=== PATIENT | female | born 1975 | race Two or more races ===

== ENCOUNTER 2020-04-12 10:27 | Outpatient (REF) | payer OTHER, SELFPAY ==
[2020-04-12 10:56] LABS: COVID-19 Test Negative (Negative)
== END 2020-04-12 10:28 | disposition home or self-care (01) ==
LOC: HO.LAB 10:27
PROVIDERS: PCP Internal Medicine; Visit Provider Internal Medicine
DX: Z20.828 Contact with and (suspected) exposure to other viral communicable diseases (principal)
CPT/HCPCS: 87635

== ENCOUNTER 2020-05-31 10:07 | Outpatient (REF) | payer OTHER, SELFPAY ==
[2020-05-31 10:26] LABS: COVID-19 Test Negative (Negative)
== END 2020-05-31 10:08 | disposition home or self-care (01) ==
LOC: HO.EMPCOV 10:07
PROVIDERS: PCP Internal Medicine; Visit Provider Internal Medicine
DX: Z20.828 Contact with and (suspected) exposure to other viral communicable diseases (principal)
CPT/HCPCS: 87635; C9803

== ENCOUNTER 2020-06-10 12:28 | Outpatient (REF) | payer OTHER, SELFPAY ==
[2020-06-10 13:56] LABS: COVID-19 Test Negative (Negative); IDNOW Serial# 55D5AD1C
== END 2020-06-10 12:29 | disposition home or self-care (01) ==
LOC: HO.LAB 12:28
PROVIDERS: Visit Provider Internal Medicine
DX: Z20.828 Contact with and (suspected) exposure to other viral communicable diseases (principal)
CPT/HCPCS: 87635; C9803

== ENCOUNTER 2021-01-31 11:48 | Outpatient (REF) | payer OTHER, SELFPAY ==
--- NOTE | ~2021-01-31 | MM_ITS ---
EXAMINATION: MM SCREENING DIGITAL BREAST TOMOSYNTHESIS, BILATERAL CLINICAL INFORMATION: Screening. Asymptomatic. Family history breast cancer, mother. The lifetime risk of breast cancer based on the Tyrer-Cuzick Model is 25%. COMPARISON: None. Radiology department staff has requested prior outside exams to allow for comparison in an addendum report. TECHNIQUE: Digital breast tomosynthesis is performed in both the craniocaudal and mediolateral oblique views along with computer-aided detection (CAD). Synthesized 2D images are generated from the tomosynthesis. FINDINGS: The breasts are heterogeneously dense, which may obscure small masses (ACR BI-RADS breast composition Category c). Breast tissue composition borders on extremely dense. There is no significant mass or architectural abnormality. There are some scattered benign small round and coarse calcifications. The axilla and skin contours are unremarkable. MM/MM tomosynthesis screening BI IMPRESSION: No mammographic evidence of malignancy. ASSESSMENT: BI-RADS 0: Incomplete - Prior outside exams pending for comparison. RECOMMENDATION: 1. Radiology department staff have requested prior outside exams to allow for comparison in an addendum report. 2. The lifetime risk of breast cancer based on the Tyrer-Cuzick Model is 25%. Additional annual adjunct screening with breast MRI may be of benefit in women with a risk score of 20% or greater and with dense breast tissue composition. This patient's information was entered into a reminder system with a target due date for their next mammogram.
== END 2021-01-31 11:49 | disposition home or self-care (01) ==
LOC: HO.MAMMO 11:48
PROVIDERS: PCP Internal Medicine; Visit Provider Internal Medicine
DX: Z12.31 Encounter for screening mammogram for malignant neoplasm of breast (principal)
CPT/HCPCS: 77063; 77067

== ENCOUNTER 2022-02-08 10:59 | Outpatient (REF) | payer OTHER, SELFPAY ==
[2022-02-08 11:14] LABS: MANUAL DIFF FLAG NO
[2022-02-08 11:38] LABS: Basophils Absolute Auto 0.1 X10*3/uL (0.0-0.2); Eosinophils Absolute Auto 0.1 X10*3/uL (0.0-0.4); Eosinophils Percent Auto 1.3 % (0-4); Hemoglobin 10.8 g/dl (12.0-16.0); Imm Gran Abs Auto 0.01 X10*3/uL (0.00-0.03); Imm Gran Pct Auto 0.2 % (0.0-0.4); Lymphocytes Percent Auto 20.5 % (20-40); Mean Corpuscular HGB Conc 32.7 g/dl (31.0-35.0); Mean Corpuscular Hemoglobin 29.4 pg (27.0-33.0); Mean Corpuscular Volume 89.9 fL (80.0-98.0); Mean Platelet Volume 10.3 fL (9.4-12.3); Monocytes Absolute Auto 0.5 X10*3/uL (0.1-1.2); Monocytes Percent Auto 10.5 % (2-11); Neutrophils Absolute Auto 3.2 x10*3/uL (2.0-8.3); Neutrophils Percent Auto 66.5 % (45-73); Platelet Count 306 X10*3/uL (160-400); Red Blood Count 3.67 X10*6/uL (4.20-5.50); Red Cell Distribution Width 13.1 % (11.0-16.0); White Blood Count 4.8 X10*3/uL (4.8-10.8)
[2022-02-08 12:29] LABS: C Reactive Protein 0.05 mg/dL (< or = 0.50); Estimated Glomerular Filt Rate > 60; Iron 90 mcg/dL (30-160); Percent Iron Saturation 23 % (15-50); Total Iron Binding Capacity 391 mcg/dL (228-428); Unsaturated Iron Binding 301 ug/dL
[2022-02-08 12:49] LABS: Creatinine Urine 52.47 mg/dL; Total Protein Urine Random < 7 mg/dL (<12)
[2022-02-08 13:33] LABS: Vitamin B12 354 pg/mL (200-900)
[2022-02-14 22:56] LABS: Prot Elec - Albumin 4.1 g/dL (3.8-4.8); Prot Elec - Alpha1 0.3 g/dL (0.2-0.3); Prot Elec - Alpha2 0.8 g/dL (0.5-0.9); Prot Elec - Beta 1 0.6 g/dL (0.4-0.6); Prot Elec - Beta 2 0.5 g/dL (0.2-0.5); Prot Elec - Gamma 3.5 g/dL (0.8-1.7); Prot Elec - Total Protein 9.9 g/dL (6.1-8.1)
== END 2022-02-08 11:00 | disposition home or self-care (01) ==
LOC: HO.LAB 10:59
PROVIDERS: PCP Internal Medicine; Visit Provider Internal Medicine Rheumatology
DX: M35.1 Other overlap syndromes (principal); D64.9 Anemia, unspecified
CPT/HCPCS: 36415; 82565; 82607; 83540; 84156; 84165; 85025; 86140

== ENCOUNTER 2022-03-08 11:16 | Outpatient (REF) | payer OTHER, SELFPAY ==
--- NOTE | ~2022-03-08 | MM_ITS ---
EXAMINATION: MM SCREENING DIGITAL BREAST TOMOSYNTHESIS, BILATERAL CLINICAL INFORMATION: Screening. Asymptomatic. Family history breast cancer, mother age 59. The lifetime risk of breast cancer based on the Tyrer-Cuzick Model is 25%. COMPARISON: Mammography: 01/31/2021, outside mammography 05/12/2017 ([facility] [place], [place]). TECHNIQUE: Digital breast tomosynthesis is performed in both the craniocaudal and mediolateral oblique views along with computer-aided detection (CAD). Synthesized 2D images are generated from the tomosynthesis. FINDINGS: The breasts are heterogeneously dense, which may obscure small masses (ACR BI-RADS breast composition Category c). Parenchymal pattern is similar to prior studies and there is no developing density or architectural abnormality. There are no significant masses, abnormal calcifications, or other abnormalities. The axilla and skin contours are unremarkable. No significant changes. MM/MM tomosynthesis screening BI IMPRESSION: No mammographic evidence of malignancy. ASSESSMENT: BI-RADS 1: Negative RECOMMENDATION: Routine annual mammography screening. This patient's information was entered into a reminder system with a target due date for their next mammogram.
== END 2022-03-08 11:17 | disposition home or self-care (01) ==
LOC: HO.MAMMO 11:16
PROVIDERS: PCP Internal Medicine; Visit Provider Internal Medicine
DX: Z12.31 Encounter for screening mammogram for malignant neoplasm of breast (principal)
CPT/HCPCS: 77063; 77067

== ENCOUNTER → 2022-08-16 07:53 | Outpatient (BNVA) | payer OTHER, SELFPAY | PROVIDERS: PCP Internal Medicine; Visit Provider Internal Medicine Rheumatology | DX: Z13.89 Encounter for screening for other disorder (principal) ==

== ENCOUNTER 2022-08-16 08:37 | Outpatient (REF) | payer OTHER, SELFPAY ==
[2022-08-16 11:17] LABS: Basophils Percent Auto 0.6 % (0-2); Eosinophils Percent Auto 0.6 % (0-4); Hematocrit 29.1 % (37.0-47.0); Hemoglobin 9.2 g/dl (12.0-16.0); Lymphocytes Absolute Auto 0.5 X10*3/uL (1.2-4.9); Lymphocytes Percent Auto 28.8 % (20-40); MANUAL DIFF FLAG SCAN; Mean Corpuscular HGB Conc 31.6 g/dl (31.0-35.0); Mean Corpuscular Hemoglobin 27.9 pg (27.0-33.0); Mean Corpuscular Volume 88.2 fL (80.0-98.0); Mean Platelet Volume 11.9 fL (9.4-12.3); Monocytes Absolute Auto 0.2 X10*3/uL (0.1-1.2); Monocytes Percent Auto 11.9 % (2-11); Neutrophils Percent Auto 58.1 % (45-73); Platelet Count 189 X10*3/uL (160-400); Red Cell Distribution Width 13.3 % (11.0-16.0); SCAN SMEAR FLAG 1
[2022-08-16 11:37] LABS: Alanine Aminotransferase 9 U/L (0-31); Albumin Level 3.8 g/dL (3.5-5.0); Alkaline Phosphatase 50 U/L (39-117); Anion Gap 13 (12-20); Aspartate Amino Transferase 19 U/L (5-31); Bilirubin Total 0.3 mg/dL (0.0-1.0); Blood Urea Nitrogen 14 mg/dL (9-16); C Reactive Protein < 0.10 mg/dL (< or = 0.50); Calcium 9.1 mg/dL (8.4-10.2); Carbon Dioxide 23 mmol/L (22-29); Chloride 106 mmol/L (96-108); Estimated Glomerular Filt Rate > 60; Glucose Random 81 mg/dL (60-115); Potassium 3.8 mmol/L (3.3-5.1); Sodium 138 mmol/L (135-145); Total Protein 9.3 g/dL (6.5-8.0)
[2022-08-16 11:38] LABS: White Blood Count 1.8 X10*3/uL (4.8-10.8)
[2022-08-16 11:47] LABS: SLIDE REVIEW VERIFIED
[2022-08-16 12:18] LABS: Creatinine Urine 31.19 mg/dL; Total Protein Urine Random < 7 mg/dL (<12)
[2022-08-16 12:28] LABS: Erythrocyte Sedimentation Rate 100 MM/HR (0-20)
[2022-08-18 14:47] LABS: Complement C3 85 mg/dL (83-193)
[2022-08-18 19:52] LABS: Anti DNA DS Antibody 3 IU/mL
== END 2022-08-16 08:38 | disposition home or self-care (01) ==
LOC: HO.10HDL 08:37
PROVIDERS: Visit Provider Internal Medicine Rheumatology
DX: M35.1 Other overlap syndromes (principal)
CPT/HCPCS: 36415; 80053; 84156; 85025; 85652; 86140; 86160; 86225

== ENCOUNTER 2022-09-07 07:17 | Outpatient (REF) | payer OTHER, SELFPAY ==
[2022-09-07 07:28] LABS: MANUAL DIFF FLAG NO
[2022-09-07 08:16] LABS: Hematocrit 33.5 % (37.0-47.0); Hemoglobin 10.4 g/dl (12.0-16.0); Imm Gran Abs Auto 0.01 X10*3/uL (0.00-0.03); Imm Gran Pct Auto 0.3 % (0.0-0.4); Lymphocytes Absolute Auto 0.9 X10*3/uL (1.2-4.9); Lymphocytes Percent Auto 30.3 % (20-40); Mean Corpuscular Hemoglobin 27.5 pg (27.0-33.0); Mean Corpuscular Volume 88.6 fL (80.0-98.0); Mean Platelet Volume 10.5 fL (9.4-12.3); Monocytes Absolute Auto 0.4 X10*3/uL (0.1-1.2); Monocytes Percent Auto 13.8 % (2-11); Neutrophils Absolute Auto 1.6 x10*3/uL (2.0-8.3); Neutrophils Percent Auto 53.6 % (45-73); Platelet Count 250 X10*3/uL (160-400); Red Blood Count 3.78 X10*6/uL (4.20-5.50)
[2022-09-08 14:54] LABS: Haptoglobin 105 mg/dL (43-212)
== END 2022-09-07 07:18 | disposition home or self-care (01) ==
LOC: HO.LAB 07:17
PROVIDERS: PCP Internal Medicine; Visit Provider Internal Medicine Rheumatology
DX: D64.9 Anemia, unspecified (principal)
CPT/HCPCS: 36415; 83010; 85025; 86880

== ENCOUNTER 2022-11-09 10:33 | Outpatient (REF) | payer OTHER, SELFPAY ==
[2022-11-09 10:43] LABS: MANUAL DIFF FLAG NO
[2022-11-09 11:34] LABS: Basophils Percent Auto 0.9 % (0-2); Eosinophils Percent Auto 0.6 % (0-4); Hematocrit 32.1 % (37.0-47.0); Hemoglobin 9.9 g/dl (12.0-16.0); Imm Gran Abs Auto 0.01 X10*3/uL (0.00-0.03); Imm Gran Pct Auto 0.3 % (0.0-0.4); Lymphocytes Percent Auto 28.3 % (20-40); Mean Corpuscular HGB Conc 30.8 g/dl (31.0-35.0); Mean Corpuscular Hemoglobin 26.7 pg (27.0-33.0); Mean Corpuscular Volume 86.5 fL (80.0-98.0); Mean Platelet Volume 11.2 fL (9.4-12.3); Monocytes Absolute Auto 0.5 X10*3/uL (0.1-1.2); Monocytes Percent Auto 13.7 % (2-11); Neutrophils Absolute Auto 1.9 x10*3/uL (2.0-8.3); Neutrophils Percent Auto 56.2 % (45-73); Platelet Count 253 X10*3/uL (160-400); Red Blood Count 3.71 X10*6/uL (4.20-5.50); Red Cell Distribution Width 13.8 % (11.0-16.0); White Blood Count 3.4 X10*3/uL (4.8-10.8)
[2022-11-09 12:12] LABS: C Reactive Protein < 0.10 mg/dL (< or = 0.50)
[2022-11-09 12:24] LABS: Erythrocyte Sedimentation Rate 90 MM/HR (0-20)
[2022-11-09 13:09] LABS: Total Protein Urine Random < 7 mg/dL (<12)
== END 2022-11-09 10:34 | disposition home or self-care (01) ==
LOC: HO.LAB 10:33
PROVIDERS: PCP Internal Medicine; Visit Provider Internal Medicine Rheumatology
DX: M35.1 Other overlap syndromes (principal)
CPT/HCPCS: 36415; 84156; 85025; 85652; 86140

== ENCOUNTER 2023-01-31 07:20 | Outpatient (REF) | payer OTHER, SELFPAY ==
[2023-01-31 08:57] LABS: Alanine Aminotransferase 6 U/L (0-31); Albumin Level 3.9 g/dL (3.5-5.0); Alkaline Phosphatase 50 U/L (39-117); Anion Gap 8 (12-20); Aspartate Amino Transferase 16 U/L (5-31); Bilirubin Total 0.2 mg/dL (0.0-1.0); Blood Urea Nitrogen 13 mg/dL (9-16); C Reactive Protein < 0.10 mg/dL (< or = 0.50); Calcium 9.5 mg/dL (8.4-10.2); Carbon Dioxide 27 mmol/L (22-29); Chloride 106 mmol/L (96-108); Estimated Glomerular Filt Rate > 60; Glucose Random 64 mg/dL (60-115); Potassium 3.6 mmol/L (3.3-5.1); Sodium 137 mmol/L (135-145); Total Protein 9.7 g/dL (6.5-8.0)
[2023-01-31 09:03] LABS: Erythrocyte Sedimentation Rate 89 MM/HR (0-20)
[2023-01-31 09:43] LABS: Creatinine Urine 40.02 mg/dL; Total Protein Urine Random < 7 mg/dL (<12)
[2023-02-01 15:38] LABS: Complement C3 95 mg/dL (83-193)
[2023-02-02 12:54] LABS: Anti DNA DS Antibody 3 IU/mL
== END 2023-01-31 07:21 | disposition home or self-care (01) ==
LOC: HO.LAB 07:20
PROVIDERS: PCP Internal Medicine; Visit Provider Internal Medicine Rheumatology
DX: D64.9 Anemia, unspecified (principal); D72.819 Decreased white blood cell count, unspecified; M35.1 Other overlap syndromes
CPT/HCPCS: 36415; 80053; 84156; 85652; 86140; 86160; 86225

== ENCOUNTER → 2023-02-14 10:52 | Outpatient (BNV) | payer OTHER, SELFPAY | PROVIDERS: PCP Internal Medicine; Visit Provider Internal Medicine Medical Oncology | DX: D64.9 Anemia, unspecified (principal); D72.819 Decreased white blood cell count, unspecified | CPT/HCPCS: 99204; 99213 ==

== ENCOUNTER 2023-02-15 07:47 | Outpatient (AMB) | payer OTHER, SELFPAY ==
--- NOTE | 2023-02-15 07:58 | A.OFFVIS_ITS ---
Intake Vital Signs 02/15/23 07:59 Height 5 ft 1 in Weight 112 lb 10.499 oz BMI 21.3 BP 102/64 Blood Pressure Location Lt brachial Position Sitting Pulse 87 Pulse Source Pulse Oximeter Temp 98 F Temp Source Skin Pulse Oximetry (%) 100 Oxygen Delivery Method Room Air Intake Visit Reasons: sjog Allergies Penicillins Allergy (Intermediate, Verified 02/15/23 07:58) Swelling Medication List - Last Reconciled 02/15/23 by Ranjit Gaming MD cyclosporine 0.09% (Cequa) 1 drp ophthalmic (eye) BID doxycycline hyclate 100 mg PO DAILY ferrous sulfate 325 mg PO DAILY hydroxychloroquine 200 mg PO DAILY omega-3 fatty acids 1,000 mg PO DAILY varenicline (Tyrvaya) 0.03 sprays intranasal DAILY HPI HPI Comments History of Present Illness Details The patient returns for evaluation of her sicca symptoms thought to be due to mixed connective tissue disease. She continues to struggle with dry eyes. She relates also at times they are somewhat itchy consistent with an allergic conjunctivitis. She was seen at [facility]. She was also told she had some element of ocular rosacea. She does take some doxycycline for the rosacea. The Restasis was upgraded to Cequa which is a higher concentration of cyclosporin but she does not think it has helped so far. The pilocarpine did not improve any of her ocular symptoms so she stopped it. She does not have any dry mouth. She also has been using the nasal spray Tyrvaya. The this is a preparation with varenicline. She also had punctal plugs in but they did fall out as she scratches the area. At [facility] she was offered a trial of a new drug but that would require her to stop all her other treatments and would also require monthly evaluations in [place]. She does not have any arthralgias or skin rashes. Last year she had some eczema that resolved with some prednisone. There continues to be significant leukopenia and anemia. She did see Hematology yesterday. Workup showed a low iron saturation although the serum iron level was 36. The B12 level was normal but in the lower range. 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 See above. Negative for vision change, headaches and dizziness ENT Details: Negative for hearing change, tinnitus, oral ulcer, nose bleeds and oral dryness. Card Details: Negative chest pain, edema and syncope Resp Details: Negative for SOB, cough and wheezing GI Details: Negative indigestion/heartburn, nausea, abdominal pain, bowel changes, diarrhea, constipation and bloody stool. Skin/Breast Details: Occasional Raynaud's symptoms but no cutaneous ulcerations. Negative for itching, rash, hives, some sun sensitivity, and skin cancer Neuro Details: Occasional nocturnal hand paresthesias. These seem to subsided she uses wrist splints. Negative for epilepsy, palsy, stroke, changes in speech and weakness [place]/Lymph Details: Negative for excessive bruising or bleeding. Physical Exam Vital Signs: Last Vital Signs Temp 98 F 02/15/23 07:59 Pulse 87 02/15/23 07:59 BP 102/64 02/15/23 07:59 Pulse Ox 100 02/15/23 07:59 Oxygen Delivery Method Room Air 02/15/23 07:59 BMI result Body Mass Index 21.3 APPEARANCE: Patient in no acute distress EYES no redness, pupils equal and reactive to light, eyelids are seem somewhat puffy but no redness or scaling is noted. NOSE/SINUS: Airflow through both nares, no nasal discharge, no bleeding THROAT: Oral mucosa moist, no ulcerations NECK: No thyromegaly or masses, no adenopathy, trachea midline. HEART: Regulrar rhythm, S1-S2 heard, no murmurs, rubs or gallops. LUNG: Clear to percussion and auscultation ABD: Normal bowel sounds, no organomegaly, masses or tenderness. EXTREMITIES: No edema, no calf tenderness, normal peripheral pulses. SKIN: No inflammatory or neoplastic lesions. Normal color and turgor JOINT EXAM: Pain-free range of motion of the joints. No tenderness or swelling.?? ? Assessment & Plan Assessment & Plan (1) Long-term use of hydroxychloroquine: Comment: eye exam reported as OK 07/2022 Code(s): Z79.899 - Other fpc (current) drug therapy (2) Leukopenia: Code(s): D72.819 - Decreased white blood cell count, unspecified (3) MCTD (mixed connective tissue disease): Comment: Diagnosed 2020: 3 years of dry eyes, Raynaud's symptoms, leukopenia, anemia, dry mouth. Positive Sjogren's antibodies and anti BEE RANCHER. Hydroxychloroquine started in the fall of 2020. Hydroxychloroquine stopped in the fall; restarted spring 2022 due to leukopenia Code(s): M35.1 - Other overlap syndromes (4) Sicca syndrome with keratoconjunctivitis: Code(s): M35.01 - Sjogren syndrome with keratoconjunctivitis Plan Sjogren's syndrome with the dry eye symptom complicated by some localized rosacea and possibly allergic conjunctivitis. She is now being seen by 2 different ophthalmologists. Measures to combat the dryness have not been all that successful. She does not seem to have any other systemic symptoms of a rheumatic disease. However she does have this persistent leukopenia, mostly lymphopenia and her anemia is slightly worse with some low MCH suggesting iron deficiency. The iron level was a bit low so she is told to be back on iron tablets. She should remain on the hydroxychloroquine since that did have a positive benefit on her leukopenia in the past. Hydroxychloroquine of course is not known to help the sicca symptoms of Sjogren's syndrome. Additional immunosuppressive treatment also has not been helpful in the past for other patients. Adding immunosuppressive treatment with her baseline leukopenia could also give her more problems than a potential benefit. She is apparently seeing Hematology in May and I thought she should see Rheumatology again in around July. Coding Level of Care Code Est Pt Level 4 (52422) Diagnoses Long-term use of hydroxychloroquine Z79.899 Leukopenia D72.819 MCTD (mixed connective tissue disease) M35.1 Sicca syndrome with keratoconjunctivitis M35.01
--- NOTE | 2023-02-15 07:58 | MHC.OFFVIS ---
Intake Vital Signs 02/15/23 07:59 Height 5 ft 1 in Weight 112 lb 10.499 oz BMI 21.3 BP 102/64 Blood Pressure Location Lt brachial Position Sitting Pulse 87 Pulse Source Pulse Oximeter Temp 98 F Temp Source Skin Pulse Oximetry (%) 100 Oxygen Delivery Method Room Air Intake Visit Reasons: sjog Intake Note: Here for sjogren's follow up Adaptive Physical Educator Required: No Accompanied by: Self / Same As Patient Allergies Penicillins Allergy (Intermediate, Verified 02/15/23 07:58) Swelling PFSH Medical History (Updated 02/15/23 @ 07:53 by Ranjit Gaming MD) Sjogren's disease Family History Mother Ovarian cancer Breast cancer Lung cancer BRCA gene mutation positive Social History Household Members: Significant Other Housing: House Alcohol intake: current Alcohol intake frequency: a few times a month Alcohol type: beer, wine and hard liquor Patient Tobacco Use Status: Never used Tobacco e-Cigarette/Vaping Use: Never Used service: No 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
[2023-02-15 07:59] VITALS: BP 102/64; PULSE 87; TEMP 36.6; O2SAT 100; BMI 21.3
== END 2023-02-15 08:21 | disposition home or self-care (01) ==
PROVIDERS: PCP Internal Medicine; Visit Provider Internal Medicine Rheumatology
DX: Z79.899 Other long term (current) drug therapy (principal); D72.819 Decreased white blood cell count, unspecified; M35.1 Other overlap syndromes; M35.01 Sjogren syndrome with keratoconjunctivitis
CPT/HCPCS: 99214

== ENCOUNTER → 2023-02-15 07:47 | Outpatient (BNVA) | payer OTHER, SELFPAY | PROVIDERS: PCP Internal Medicine; Visit Provider Internal Medicine Rheumatology ==

== ENCOUNTER 2023-03-12 08:02 | Outpatient (AMB) | payer OTHER, SELFPAY ==
[2023-03-12 08:10] VITALS: BP 107/59; PULSE 82; BMI 20.8
--- NOTE | 2023-03-12 08:10 | MHC.OFFVIS ---
Intake Vital Signs 03/12/23 08:10 Height 5 ft 1 in Weight 110 lb BMI 20.8 BP 107/59 L Blood Pressure Location Lt brachial Position Sitting Pulse 82 Intake Visit Reasons: Colonoscopy Screening Intake Note: Patient new consult for 1st pre colonoscopy screening. Patient denies any GI issues. Manager Audio Required: No Accompanied by: Self / Same As Patient Allergies Penicillins Allergy (Intermediate, Verified 03/12/23 08:08) Swelling Medication List - Last Reconciled 03/12/23 by Mary Jo Pickens PA-C cyclosporine 0.09% (Cequa) 1 drp ophthalmic (eye) BID doxycycline hyclate 100 mg PO DAILY hydroxychloroquine 200 mg PO DAILY omega-3 fatty acids 1,000 mg PO DAILY varenicline (Tyrvaya) 0.03 sprays intranasal DAILY HPI HPI Comments History of Present Illness Details A 47 female index screening colonoscopy -She has a normal bowel pattern A good appetite- rare heartburn Follows with Dr. Maldonado and Dr. 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 of Systems Const All systems reviewed & are unremarkable except as noted in HPI and below Card Denies chest pain and Denies dyspnea Resp Denies dyspnea GI Denies abdominal pain and Reports heartburn (rare-) Physical Exam Vital Signs: Last Vital Signs Pulse 82 03/12/23 08:10 BP 107/59 L 03/12/23 08:10 BMI result Body Mass Index 20.8 Const General: cooperative, healthy appearing, comfortable and no acute distress Nutritional Appearance: thin Orientation/consciousness: patient oriented x3 Limitations: no limitations Resp Effort & Inspection: normal respiratory effort and able to speak in complete sentences Auscultation: clear to auscultation bilaterally, no rales, no rhonchi and no wheezes Cardio Rate: regular rate Rhythm: regular rhythm Heart sounds: S1 normal heart sound present and S2 normal heart sound present GI Palpation (GI): Soft to palpation and nontender Auscultation: normal bowel sounds Skin General skin exam: no rashes or lesions noted Neuro General: patient oriented x3 Extrem General: Yes full ROM Psych Appearance: grossly normal and well kempt Mental Status: mental status grossly normal Speech and movement: Normal speech and movement present and Clear speech present Affect: normal affect Attitude: cooperative Thought process: Normal thought process present Thought content: Normal thought content present Insight: Good insight present (Psych) Judgement: Good judgement present (Psych) Results Reviewed Results Reviewed: labs- iron def anemia- elevated TTG- Assessment & Plan Assessment & Plan (1) Positive autoantibody screening for celiac disease: Comment: A very pleasant-47 y/o female connective tissue disease, elevated tTG iron deficiency anemia, leukopenia referred for index screening colonoscopy. No bowel issues Rare heartburn- EGD r/o underlying causes of symptoms to include-biopsy for celiac disease, also check H pylori etc Code(s): R76.8 - Other specified abnormal immunological findings in serum Plan: EGD and index screening colonoscopy (2) Encounter for screening colonoscopy: Comment: No GI complaints- Discussed procedure, rare risks, need for escorted and prep Code(s): Z12.11 - Encounter for screening for malignant neoplasm of colon Plan: Index screening colonoscopy MiraLax Gatorade split Plan EGD and colonoscopy MiraLax Gatorade split prep Orders: Orders EGD/Seward Combo - GI Use Only Today R76.8 - Other specified abnormal immunological findings in serum, Z12.11 - Encounter for screening for malignant neoplasm of colon Medications: New bisacodyl (Dulcolax (bisacodyl)) Take 4 tablets by mouth at 12:00pm the day before your procedure. 20 mg (4 x 5 mg) PO ONCE 1 day 4 tabs 0RF colonoscopy prep Z12.11 - Encounter for screening for malignant neoplasm of colon polyethylene glycol 3350 (Miralax) Take as directed by mouth the day before your procedure. 238 grams PO ONCE 1 day PRN 238 grams 0RF laxative effect Patient Instructions: EGD and colonoscopy MiraLax Gatorade split prep literature given Opportunity for questions answered to her satisfaction Need for escort Encouraged to call questions or concerns Coding Level of Care Code New Pt Level 3 (31484) Diagnoses Positive autoantibody screening for celiac disease R76.8 Encounter for screening colonoscopy Z12.11 Time Spent (min) 25
== END 2023-03-12 10:00 | disposition home or self-care (01) ==
PROVIDERS: PCP Internal Medicine; Visit Provider Physician Assistant
DX: R76.8 Other specified abnormal immunological findings in serum (principal); Z12.11 Encounter for screening for malignant neoplasm of colon
CPT/HCPCS: 99203

== ENCOUNTER → 2023-03-12 08:02 | Outpatient (BNVA) | payer OTHER, SELFPAY | PROVIDERS: PCP Internal Medicine; Visit Provider Physician Assistant ==

== ENCOUNTER 2023-04-16 11:48 | Outpatient (REF) | payer OTHER, SELFPAY | END 2023-04-16 11:49 | disposition home or self-care (01) | LOC: HO.MAMMO 11:48 | PROVIDERS: PCP Internal Medicine; Visit Provider Internal Medicine | DX: Z12.31 Encounter for screening mammogram for malignant neoplasm of breast (principal) | CPT/HCPCS: 77063; 77067 ==

== ENCOUNTER → 2023-04-16 12:00 | Outpatient (BNV) | payer OTHER, SELFPAY | PROVIDERS: PCP Internal Medicine; Visit Provider Radiology Diagnostic Radiology | DX: Z12.31 Encounter for screening mammogram for malignant neoplasm of breast (principal) | CPT/HCPCS: 77063; 77067 ==

== ENCOUNTER 2023-06-14 06:02 | Day surgery (SDC) | payer OTHER, SELFPAY ==
[2023-06-12 09:33] VITALS: BMI 20.8
--- NOTE | 2023-06-13 09:51 | HO.ANESPROP2 ---
Documented by User: Vidhya Thomson NP 06/13/23 09:53 HPI - Anesthesia Eval Consult details Narrative: 48yo F for Upper Endoscopy and Colonoscopy Follows [facility] for leukopenia/anemia. Started on supplement 05/2023 [facility] Active Problems Active Problems: All Active Problems (Updated 06/12/23 @ 09:29 by Aida Carcamo RN) Ocular cicatricial pemphigoid (Acute) Encounter for screening colonoscopy (Acute) Positive autoantibody screening for celiac disease (Acute) Sicca syndrome with keratoconjunctivitis (Acute) Leukopenia (Acute) Paresthesia of hand, bilateral (Acute) Hand eczema (Acute) Long-term use of hydroxychloroquine (Acute) Raynauds phenomenon (Acute) Anemia (Acute) MCTD (mixed connective tissue disease) (Acute) Past Medical History Medical History Iron deficiency anemia Leukopenia MCTD (mixed connective tissue disease) Raynaud phenomenon Sjogren's disease Family History Family History Mother Ovarian cancer Breast cancer Lung cancer BRCA gene mutation positive Surgical History Surgical History Hx of eye surgery Social History Social History Household Members: Significant Other Housing: House Alcohol intake: current Alcohol intake frequency: does not drink Alcohol type: beer, wine and hard liquor Patient Tobacco Use Status: Never used Tobacco e-Cigarette/Vaping Use: Never Used Are you DNR?: No Advance Directives: No Advance Directives Information Provided: Yes Recently lost weight without trying: No Nutrition Risks: No Nutritional Risk Patient : No FDLMP: 1 week service: No 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 Allergy/AdvReac Type Severity Reaction Status Date / Time Penicillins Allergy Intermediate Swelling Verified 05/15/23 09:20 Home Medications Medication Instructions Recorded Confirmed Last Taken Type omega-3 fatty acids 1,000 mg 1,000 mg PO DAILY 02/08/22 06/12/23 06/08/23 History capsule doxycycline hyclate 100 mg capsule 100 mg PO DAILY 02/09/23 06/12/23 Unknown History varenicline 0.03 mg/spray nasal 0.03 spray intranasal DAILY 02/09/23 06/12/23 Unknown History spray (Tyrvaya) cetirizine 10 mg tablet (Zyrtec) 10 mg PO DAILY PRN Allergy Symptoms 05/15/23 06/12/23 Unknown History cyclosporine 0.05 % eye drops 1 drp ophthalmic (eye) DAILY 05/15/23 06/12/23 Unknown History (Restasis MultiDose) cyclosporine modified 50 mg capsule 50 mg PO DAILY 05/15/23 06/12/23 Unknown History folic acid 1 mg tablet 1 mg PO DAILY 05/15/23 06/12/23 Unknown History methotrexate 2.5 mg/mL oral 2.5 mg PO QWEEK 05/15/23 06/12/23 Unknown History solution valacyclovir 1 gram tablet 1,000 mg PO DAILY 05/15/23 06/12/23 Unknown History (Valtrex) Exam Height,Weight and Vital Signs: Height 5 ft 1 in Weight 49.895 kg Pertinent Lab Results Pertinent Lab Results: Laboratory Tests 05/15/23 09:17 WBC 2.4 L Hgb 8.9 L Hct 29.3 L Plt Count 270 Sodium 136 Potassium 4.3 Chloride 104 Carbon Dioxide 24 BUN 11 Creatinine 0.81 Assessment and Plan Assessment Anesthesia Assessment: Chart Reviewed Documented by User: Harriett Roland MD 06/14/23 08:17 [facility] Active Problems Active Problems: All Active Problems (Updated 06/14/23 @ 07:20 by Harriett Roland MD) Ocular cicatricial pemphigoid (Acute) Encounter for screening colonoscopy (Acute) Positive autoantibody screening for celiac disease (Acute) Sicca syndrome with keratoconjunctivitis (Acute) Leukopenia (Acute) Paresthesia of hand, bilateral (Acute) Hand eczema (Acute) Long-term use of hydroxychloroquine (Acute) Raynauds phenomenon (Acute) Anemia (Acute) MCTD (mixed connective tissue disease) (Acute) Past Medical History Medical History Iron deficiency anemia Leukopenia MCTD (mixed connective tissue disease) Raynaud phenomenon Sjogren's disease Family History Family History Mother Ovarian cancer Breast cancer Lung cancer BRCA gene mutation positive Family history of problems with anesthesia: No Surgical History Surgical History Hx of eye surgery History of Problems with Anesthesia: No Social History Social History Household Members: Significant Other Housing: House Alcohol intake: current Alcohol intake frequency: does not drink Alcohol type: beer, wine and hard liquor Patient Tobacco Use Status: Never used Tobacco e-Cigarette/Vaping Use: Never Used Are you DNR?: No Advance Directives: No Advance Directives Information Provided: Yes Recently lost weight without trying: No Nutrition Risks: No Nutritional Risk Patient : No FDLMP: 1 week service: No 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 Allergy/AdvReac Type Severity Reaction Status Date / Time Penicillins Allergy Intermediate Swelling Verified 05/15/23 09:20 Home Medications Medication Instructions Recorded Confirmed Last Taken Type omega-3 fatty acids 1,000 mg 1,000 mg PO DAILY 02/08/22 06/12/23 06/08/23 History capsule doxycycline hyclate 100 mg capsule 100 mg PO DAILY 02/09/23 06/12/23 Unknown History varenicline 0.03 mg/spray nasal 0.03 spray intranasal DAILY 02/09/23 06/12/23 Unknown History spray (Tyrvaya) cetirizine 10 mg tablet (Zyrtec) 10 mg PO DAILY PRN Allergy Symptoms 05/15/23 06/12/23 Unknown History cyclosporine 0.05 % eye drops 1 drp ophthalmic (eye) DAILY 05/15/23 06/12/23 Unknown History (Restasis MultiDose) cyclosporine modified 50 mg capsule 50 mg PO DAILY 05/15/23 06/12/23 Unknown History folic acid 1 mg tablet 1 mg PO DAILY 05/15/23 06/12/23 Unknown History methotrexate 2.5 mg/mL oral 2.5 mg PO QWEEK 05/15/23 06/12/23 Unknown History solution valacyclovir 1 gram tablet 1,000 mg PO DAILY 05/15/23 06/12/23 Unknown History (Valtrex) Exam Height,Weight and Vital Signs: Height 5 ft 1 in Weight 49.895 kg Vital Signs Temp Pulse Resp BP Pulse Ox O2 Del Method 06/14/23 06:29 97 F 77 20 116/70 100 Room Air Pertinent Lab Results Pertinent Lab Results: Laboratory Tests 05/15/23 09:17 WBC 2.4 L Hgb 8.9 L Hct 29.3 L Plt Count 270 Sodium 136 Potassium 4.3 Chloride 104 Carbon Dioxide 24 BUN 11 Creatinine 0.81 Lab Results 06/14/23 Range/Units 07:10 Urine Test NEGATIVE (NEGATIVE) Airway Mallampati Class: III (Small mouth) TM Dist: >3cm Neck ROM: Full Loose/Missing/Broken Teeth: No (Denies broken, loose, missing teeth) Heart: RRR Lungs: CTAB Assessment and Plan Assessment Anesthesia Assessment: Anesthesia Plan Discussed Final Anesthetic Review Family History of Problems with Anesthesia: No History of Problems with Anesthesia: No NPO: Yes ASA Class: II Final Preanesthetic Review: No Changes in Pt Med Stat, Meds/Allgs Chart Reviewed, Consent Obtained/Reviewed and Anes Risks/Benef Reviewed Patient Risk: Low Procedure Risk: Low Assessment/Block/Sedation in SS: Assess/Block/Sedation-SS Anesthetic Plan Anesthetic Plan: TIVA Disposition: Standard PACU
[2023-06-14 06:18] VITALS: BMI 21.1
[2023-06-14 06:29] VITALS: BP 116/70; PULSE 77; RESP 20; TEMP 36.1; O2SAT 100
--- NOTE | 2023-06-14 06:29 | MHC.SHP ---
Pre-Procedural Eval Section A Date of Service: 06/14/23 Section B Chief Complaint: Other specified abnormal immunological findings in Details of Present Illness: screening and pos celiac test Relevant Family History (Specify if Yes): No Relevant Social History: None Present Medications: see Short Stay Collaborative assessment Medical History: Significant History (eva deficiency anemia Leukopenia MCTD (mixed connective tissue disease) Raynaud phenomenon Sjogren's disease) History of Previous Operations: Relevant previous surgery/procedure and date(s) (eye surg) Allergies: Allergies Allergy/AdvReac Type Severity Reaction Status Date / Time Penicillins Allergy Intermediate Swelling Verified 05/15/23 09:20 Review of Systems Sugical H&P ROS: Negative: Constitution, Cardiovascular, Respiratory, Neurological, Psychiatric, Hem-Onc, Allergic/Immunologic, Gastrointestinal, Genitourinary, Musculoskeletal, Integumentary, Endocrine and Eyes/Ears/Nose/Throat Exam Surgical H&P Exam: Normal: HEENT, Normal: Heart, Normal: Lungs, Normal: Extremities, Normal: Abdomen, Normal: Skin and Normal: Neurological Plan Diagnosis/Plan: Unchanged I have reviewed the history and physical and performed a pertinent physical examination on my patient. No changes have occurred unless specified. Time Spent With Patient Time: Total time managing care of this patient today ____ minutes.
--- NOTE | 2023-06-14 07:38 | W.PM.OPN ---
Operative Note Operative Note Date of Service: 06/14/23 Narrative: Operative Information Procedure Description: EGD, Colonoscopy Indication: pos celiac antibody test, screening colonoscopy Anesthesia: MAC FLEXIBLE TRANSORAL UPPER GASTROINTESTINAL ENDOSCOPY AND COLONOSCOPY PROCEDURE NOTE UPPER ENDOSCOPY Consent: Indications for the procedure and potential complications of bleeding, perforation, reaction to medications and missed diagnosis were discussed with the patient and informed consent was obtained. Instrument: Olympus GIF H 190 J mid size upper endoscope Monitoring: Vital signs and clinical assessment, continuous EKG monitoring, Pulse oximetry, Carbon Dioxide monitoring and blood pressure monitoring were done throughout the procedure. Procedure: The patient was placed in the left lateral decubitis position and pre-procedure medications were administered and a bite block was placed. The endoscope was inserted into the mouth and advanced under direct vision to the third part of duodenum. A careful inspection was made as the upper endoscope was withdrawn including a retroflexed examination of the proximal stomach; Findings and interventions are described below. Findings: Larynx:normal Esophagus: GE junction at 38 cm, diaphragm hiatus at 38 cm, irregular z line, bx taken to r/o Barretts, lax LEs noted Stomach: PAtchy erythema. Biopsies were obtained. Grade 2 flap valve on retroflexed examination of the cardia. Duodenum: flat mucosa with coarse features aleida in bulb, bx taken Intervention: Biopsies as noted above COLONOSCOPY Instrument: Olympus variable stiffness pediatric scope 190L Colonoscopy Monitoring: Vital signs and clinical assessment, continuous EKG monitoring, Pulse oximetry, Carbon Dioxide monitoring and blood pressure monitoring were done throughout the procedure. Colon withdrawal time was 8 minutes. Procedure: The patient was placed in the left lateral decubitis position and pre-procedure medications were administered. After a digital rectal examination of the ano-rectum, the video colonoscope was inserted into the rectum and advanced through the colon to the cecum/TI. The colonoscope was slowly withdrawn in a retrograde panoramic fashion and the colon mucosa was carefully examined including a retroflexed view of the rectum. Findings and interventions are described below. Procedure Difficulty:moderate Findings: Terminal Ileum-not intubated due to looping Cecum:normal Ascending Colon: normal Transverse Colon -normal Descending Colon:normal Sigmoid Colon: normal Rectum: Retroflexion with small internal hemorrhoids, grade I Anorectum - normal Colon preparation: [place] Bowel Preparation Scale Right colon; 2 Transverse colon: 2 Left colon; 2 (0 = Unprepared colon segment with mucosa not seen due to solid stool that cannot be cleared. 1 = Portion of mucosa of the colon segment seen, but other areas of the colon segment not well seen due to staining, residual stool and/or opaque liquid. 2 = Minor amount of residual staining, small fragments of stool and/or opaque liquid, but mucosa of colon segment seen well. 3 = Entire mucosa of colon segment seen well with no residual staining, small fragments of stool or opaque liquid) Impression and Post Procedure Diagnosis: Endoscopy Findings: lax LES enteropathy gastritis possible barretts Colonoscopy Findings: internal hemorrhoids tortuous colon Plan: Await Pathology results Repeat Colonoscopy in 10 years or earlier if clinically indicated High fiber diet leaflet avoid straining at stool, epsom salts and sitz bath, anusol supps or cream Above findings were reviewed with the patient and relevant handouts were provided if indicated.
[2023-06-14 08:19] VITALS: BP 112/68; PULSE 96; RESP 16; TEMP 36.6; O2SAT 100
[2023-06-14 08:34] VITALS: BP 111/71; PULSE 82; RESP 16; TEMP 36.6; O2SAT 100
== END 2023-06-14 09:00 | disposition home or self-care (01) ==
PROVIDERS: PCP Internal Medicine; Visit Provider Internal Medicine Gastroenterology
PROC: (CPT 45378; principal; 2023-06-14 07:30)
DX: Z12.11 Encounter for screening for malignant neoplasm of colon (principal); K64.0 First degree hemorrhoids; Q43.8 Other specified congenital malformations of intestine; R76.8 Other specified abnormal immunological findings in serum; K63.9 Disease of intestine, unspecified; K29.50 Unspecified chronic gastritis without bleeding; K22.89 Other specified disease of esophagus; K22.4 Dyskinesia of esophagus; K44.9 Diaphragmatic hernia without obstruction or gangrene
CPT/HCPCS: 45378; 43239; 81025; 88305; 88342; J1596; J2250; J2704

== ENCOUNTER → 2023-06-14 06:02 | Outpatient (BNV) | payer OTHER, SELFPAY | PROVIDERS: PCP Internal Medicine; Visit Provider Internal Medicine Gastroenterology | DX: Z12.11 Encounter for screening for malignant neoplasm of colon (principal); K29.70 Gastritis, unspecified, without bleeding; K64.0 First degree hemorrhoids | CPT/HCPCS: 43239; 45378 ==

== ENCOUNTER 2023-06-28 07:14 | Outpatient (AMB) | payer OTHER, SELFPAY ==
--- NOTE | 2023-06-28 07:37 | A.OFFVIS_ITS ---
Intake Vital Signs 06/28/23 07:43 Height 5 ft 1 in Weight 108 lb 0.424 oz BMI 20.4 BP 117/72 Blood Pressure Location Lt brachial Position Sitting Pulse 83 Intake Visit Reasons: S/P EGD, [place]; Dr. Montano Intake Note: Breonna presents in the office as a follow up EGD and COLO. CC: She states that she was told to be on a gluten free diet! Other than that no other concerns at this time. Assistant Bookkeeper Required: No Allergies Penicillins Allergy (Intermediate, Verified 06/28/23 07:43) Swelling HPI HPI Comments History of Present Illness Details Very pleasant 48-year-old female with anemia, autoimmune disease, follows up after recent EGD and colonoscopy-Dr. Montano She tolerated procedures well Reviewed procedure report, pathology recommendations She follows with Dr. Maldonado for Hematology-was seen most recently in May- leukopenia, anemia She has no GI complaints today [facility] Medical History (Updated 06/28/23 @ 09:16 by Mary Jo Pickens PA-C) Iron deficiency anemia Leukopenia MCTD (mixed connective tissue disease) Raynaud phenomenon Sjogren's disease Surgical History Hx of colonoscopy History of esophagogastroduodenoscopy (EGD) Hx of eye surgery Family History Mother Ovarian cancer Breast cancer Lung cancer BRCA gene mutation positive Social History Household Members: Significant Other Housing: House Alcohol intake: current Alcohol intake frequency: does not drink Alcohol type: beer, wine and hard liquor Patient Tobacco Use Status: Never used Tobacco e-Cigarette/Vaping Use: Never Used service: No 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 Review of Systems Const All systems reviewed & are unremarkable except as noted in HPI and below Physical Exam Vital Signs: Last Vital Signs Pulse 83 06/28/23 07:43 BP 117/72 06/28/23 07:43 BMI result Body Mass Index 20.4 Const General: cooperative, healthy appearing, comfortable and well groomed Orientation/consciousness: patient oriented x3 Limitations: no limitations Eyes Conjunctivae: conjunctivae normal Resp Effort & Inspection: normal respiratory effort and able to speak in complete sentences Neuro General: patient oriented x3 Extrem General: Yes full ROM Psych Appearance: grossly normal and well kempt Mental Status: mental status grossly normal Speech and movement: Normal speech and movement present and Clear speech present Affect: normal affect Attitude: cooperative Thought process: Normal thought process present Thought content: Normal thought content present Insight: Good insight present (Psych) Judgement: Good judgement present (Psych) Results Reviewed Results Reviewed: Impression and Post Procedure Diagnosis: Endoscopy Findings: lax LES enteropathy gastritis possible barretts Colonoscopy Findings: internal hemorrhoids tortuous colon Plan: Await Pathology results Repeat Colonoscopy in 10 years or earlier if clinically indicated High fiber diet leaflet avoid straining at stool, epsom salts and sitz bath, anusol supps or cream Above findings were reviewed with the patient and relevant handouts were provided if indicated. Age/Sex: 48/F Attending: Jennifer Montano MD : 1975 Submitted by: Jennifer Montano MD Copies to: ANEL PRETTY MD MR #: [id number] Status: [facility] Collected: 06/14/23 Location: [facility] Received: 06/14/23 Diagnosis A. Duodenum, biopsy: Duodenal mucosa with focal mildly increased intraepithelial lymphocytes and preserved villous architecture. See comment. B. Stomach, biopsy: Antral-type and oxyntic mucosa with moderate chronic inactive inflammation; no Helicobacter organisms seen. C. GE junction, biopsy: - Cardiac-type mucosa with moderate chronic active inflammation; no intestinal metaplasia seen. - Squamous mucosa within normal limits. D. Esophagus, distal, biopsy: Squamous epithelium within normal limits; no inflammation seen. COMMENT: The findings in the duodenum are non-specific. The patient's positive celiac serologic study is noted. The differential diagnosis is broad and also includes infection (e.g. viral or H. pylori), medication/ drugs (e.g. NSAIDs), bacterial overgrowth, tropical sprue, immunodeficiency syndromes (e.g. IgA deficiency, CVID), autoimmune enteropathy, Crohns and collagen vascular disease, among others. Please correlate with clinical and other laboratory findings. Clinical History Pre-Op Dx: Positive celiac antibody, r/o Bates's Post-Op Dx: LAX LES, gastritis, enteropathy, possible Bates's Microscopic Description A-D. Microscopic sections reviewed. Immunostain for H. pylori is non-reactive (B). Material Received A. Duodenum B. Stomach C. GE junction D. Distal esophagus Gross Description Received in 4 parts. Part A: Received in formalin labeled ?duodenum? are 5 paez and paez-pink irregular tissue fragments ranging from less than 0.1-0.25 cm, submitted in toto in a cassette labeled A. Patient: Breonna Mendoza Age/Sex: 48/F MR#: [id number] Page 1 of 2 Assessment & Plan Assessment & Plan (1) Positive autoantibody screening for celiac disease: Comment: A very pleasant-48 y/o female connective tissue disease, elevated tTG iron deficiency anemia, leukopenia Code(s): R76.8 - Other specified abnormal immunological findings in serum Plan: Diagnosis A. Duodenum, biopsy: Duodenal mucosa with focal mildly increased intraepithelial lymphocytes and preserved villous architecture. See comment. B. Stomach, biopsy: Antral-type and oxyntic mucosa with moderate chronic inactive inflammation; no Helicobacter organisms seen. C. GE junction, biopsy: - Cardiac-type mucosa with moderate chronic active inflammation; no intestinal metaplasia seen. - Squamous mucosa within normal limits. D. Esophagus, distal, biopsy: Squamous epithelium within normal limits; no inflammation seen. COMMENT: The findings in the duodenum are non-specific. The patient's positive celiac serologic study is noted. The differential diagnosis is broad and also includes infection (e.g. viral or H. pylori), medication/ drugs (e.g. NSAIDs), bacterial overgrowth, tropical sprue, immunodeficiency syndromes (e.g. IgA deficiency, CVID), autoimmune enteropathy, Crohns and collagen vascular disease, among others. Please correlate with clinical and other laboratory findings. Findings: Larynx:normal Esophagus: GE junction at 38 cm, diaphragm hiatus at 38 cm, irregular z line, bx taken to r/o Barretts, lax LEs noted Stomach: PAtchy erythema. Biopsies were obtained. Grade 2 flap valve on retroflexed examination of the cardia. Duodenum: flat mucosa with coarse features aleida in bulb, bx taken Intervention: Biopsies as noted above (2) Tortuous colon: Comment: TESSIE Code(s): Q43.8 - Other specified congenital malformations of intestine (3) Hemorrhoids: Code(s): K64.9 - Unspecified hemorrhoids Plan: Maintain high-fiber diet Avoids straining Plan H pylori breath Orders: Orders H Pylori Breath Test Today A04.8 - Other specified bacterial intestinal infections Patient Instructions: Reviewed procedure report, pathology recommendation She will trial gluten free diet She will continue to follow with Dr. Maldonado Will do H pylori breath test if positive will treat Repeat asymptomatic colonoscopy 10 years Avoid straining with hemorrhoids maintain high-fiber diet Encouraged to call questions or concerns Coding Level of Care Code Est Pt Level 3 (96426) Diagnoses Positive autoantibody screening for celiac disease R76.8 Tortuous colon Q43.8 Hemorrhoids K64.9 Time Spent (min) 30 Comment HP UBT
[2023-06-28 07:43] VITALS: BP 117/72; PULSE 83; BMI 20.4
== END 2023-06-28 09:24 | disposition home or self-care (01) ==
PROVIDERS: PCP Internal Medicine; Visit Provider Physician Assistant
DX: R76.8 Other specified abnormal immunological findings in serum (principal); Q43.8 Other specified congenital malformations of intestine; K64.9 Unspecified hemorrhoids
CPT/HCPCS: 99213

== ENCOUNTER 2023-06-28 07:14 | Outpatient (REF) | payer OTHER, SELFPAY ==
[2023-06-29 12:09] LABS: H Pylori Breath Test Negative (Negative)
== END 2023-06-28 07:15 | disposition home or self-care (01) ==
LOC: HO.LNP 07:14
PROVIDERS: PCP Internal Medicine; Visit Provider Physician Assistant
DX: A04.8 Other specified bacterial intestinal infections (principal); K64.9 Unspecified hemorrhoids
CPT/HCPCS: 83013

== ENCOUNTER 2023-07-12 07:50 | Outpatient (AMB) | payer OTHER, SELFPAY ==
--- NOTE | 2023-07-12 07:54 | MHC.OFFVIS ---
Intake Vital Signs 07/12/23 07:55 Height 5 ft 1 in Weight 113 lb 5.082 oz BMI 21.4 BP 100/82 Blood Pressure Location Lt brachial Position Sitting Pulse 71 Pulse Source Pulse Oximeter Temp 97.1 F Temp Source Skin Pulse Oximetry (%) 100 Oxygen Delivery Method Room Air Intake Visit Reasons: Sjogren's - Dr. Jeffery Intake Note: Patient last seen by Dr Gaming on 02/15/23 presents today for follow up. Medical Services Coordinator Required: No Accompanied by: Self / Same As Patient Allergies Penicillins Allergy (Intermediate, Verified 07/12/23 07:58) Swelling Medication List - Last Reconciled 07/12/23 by Jamie Jeffery MD betamethasone dipropionate 0.05% topical cetirizine (Zyrtec) 10 mg PO DAILY PRN cyanocobalamin (vitamin B-12) 1,000 mcg sublingual DAILY cyclosporine 0.09% (Cequa) 1 drp ophthalmic (eye) BID cyclosporine modified 50 mg PO DAILY ferrous sulfate 325 mg PO DAILY folic acid 1 mg PO DAILY hydroxychloroquine 200 mg PO DAILY lotilaner 0.25% (Xdemvy) drps ophthalmic (eye) methotrexate sodium 15 mg PO QWEEK omega-3 fatty acids 1,000 mg PO DAILY valacyclovir (Valtrex) 1,000 mg PO DAILY varenicline (Tyrvaya) 0.03 sprays intranasal DAILY HPI HPI Comments History of Present Illness Details 48-year-old female with mixed connective tissue disease returns for follow-up. She has been on methotrexate 50 mg and cyclosporin regularly for about 2 months now. 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 She can not tell whether her eyes are better. She continues to have photosensitivity. Little worse on the right. She is doing well overall. She denies any joint pain or fevers or weight loss. Patient lives with her for years. She does not use contraception. She has never been . She denies any history of DVT/PE. She has Raynaud's but symptoms are manageable. She denies any new rashes except for slightly worsening eczema on the extensor aspect of her hands. She denies any cough or shortness of breath. She states that recently she had an EGD and colonoscopy for iron-deficiency anemia and duodenal biopsy was inconclusive but she had positive celiac disease antibodies and she just started gluten free diet 2 weeks ago. She mentioned that her sister has thyroiditis, mother had rheumatoid arthritis and lung fibrosis. Father of abrupt onset of lung fibrosis. Most recent history by Dr. Gaming 02/2023: The patient returns for evaluation of her sicca symptoms thought to be due to mixed connective tissue disease. She continues to struggle with dry eyes. She relates also at times they are somewhat itchy consistent with an allergic conjunctivitis. She was seen at [facility]. She was also told she had some element of ocular rosacea. She does take some doxycycline for the rosacea. The Restasis was upgraded to Cequa which is a higher concentration of cyclosporin but she does not think it has helped so far. The pilocarpine did not improve any of her ocular symptoms so she stopped it. She does not have any dry mouth. She also has been using the nasal spray Tyrvaya. The this is a preparation with varenicline. She also had punctal plugs in but they did fall out as she scratches the area. At [facility] she was offered a trial of a new drug but that would require her to stop all her other treatments and would also require monthly evaluations in [place]. She does not have any arthralgias or skin rashes. Last year she had some eczema that resolved with some prednisone. There continues to be significant leukopenia and anemia. She did see Hematology yesterday. Workup showed a low iron saturation although the serum iron level was 36. The B12 level was normal but in the lower range. [facility] Medical History Iron deficiency anemia Leukopenia MCTD (mixed connective tissue disease) Raynaud phenomenon Sjogren's disease Surgical History Hx of colonoscopy History of esophagogastroduodenoscopy (EGD) Hx of eye surgery Family History Mother Ovarian cancer Breast cancer Lung cancer BRCA gene mutation positive Maternal Grandfather Rheumatoid arthritis Lung fibrosis Father Lung fibrosis Sister Thyroiditis Social History Household Members: Significant Other Housing: House Alcohol intake: current Alcohol intake frequency: does not drink Alcohol type: beer, wine and hard liquor Patient Tobacco Use Status: Never used Tobacco e-Cigarette/Vaping Use: Never Used service: No 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 Reproductive History Menstrual Total pregnancies: 0 Review of Systems Const Denies fever(s) and Denies weight loss Eyes Reports irritation and Reports photophobia Card Denies dyspnea Resp Denies cough and Denies dyspnea GI Reports no additional complaints Musc Denies arthralgias and Denies joint swelling Skin/Breast Reports pruritus and Reports rash Physical Exam Vital Signs: Last Vital Signs Temp 97.1 F 07/12/23 07:55 Pulse 71 07/12/23 07:55 BP 100/82 07/12/23 07:55 Pulse Ox 100 07/12/23 07:55 Oxygen Delivery Method Room Air 07/12/23 07:55 BMI result Body Mass Index 21.4 Const General: cooperative, healthy appearing and comfortable Nutritional Appearance: average body habitus Orientation/consciousness: patient oriented x3 Limitations: no limitations HEENT Head: Yes normocephalic and Yes atraumatic Mouth: moist mucous membranes Eyes Direct Ophthalmoscopy: photophobia Resp Effort & Inspection: normal respiratory effort and able to speak in complete sentences Auscultation: clear to auscultation bilaterally Cardio Rate: regular rate Rhythm: regular rhythm Heart sounds: S1 normal heart sound present GI Inspection: No distended Palpation (GI): Soft to palpation and nontender Neuro General: patient oriented x3 Extrem Other: Slightly puffy fingers but no active synovitis Eczematous rashes on both fingers Normal nailfold capillaroscopy Normal range of motion of hands, wrists, elbows and shoulders without pain Proximal muscle strength 5/5 all 4 limbs Assessment & Plan Assessment & Plan (1) MCTD (mixed connective tissue disease): Comment: Diagnosed 2020: 3 years of dry eyes, Raynaud's symptoms, leukopenia, anemia, dry mouth. 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 Hydroxychloroquine started in the fall of 2020. Hydroxychloroquine stopped in the fall of 2021; restarted spring 2022 due to leukopenia Code(s): M35.1 - Other overlap syndromes Plan: 48-year-old female with MCTD, features of Sjogren's, MCTD and lupus who presents for follow-up. Doing well overall. 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 Continue to follow-up with ophthalmology. Her Raynaud's is well controlled. There is no active synovitis. Will order comprehensive serology to better evaluate her underlying autoimmune disease. Patient's grandmother had rheumatoid arthritis and lung fibrosis, father of lung disease. We will discuss screening for pulmonary arterial hypertension and ILD next visit. Patient asymptomatic currently from a cardiopulmonary standpoint (2) Ocular cicatricial pemphigoid: Comment: seen at [facility], Dr. Burnett, Methotrexate and cyclosporine started 05/2023 Code(s): L12.1 - Cicatricial pemphigoid Plan: Follow-up with ophthalmology Plan I spent 47 minutes reviewing patient's chart, evaluating patient, ordering diagnostic workup, counseling patient and documenting in the chart Orders: Orders Complete Blood Count Auto Diff 6 Weeks M35.1 - Other overlap syndromes Comprehensive Met. Panel 6 Weeks M35.1 - Other overlap syndromes C Reactive Protein 6 Weeks M35.1 - Other overlap syndromes Anti Extractable Nuclear Ag 6 Weeks M35.1 - Other overlap syndromes Anti DNA DS Antibody 6 Weeks M35.1 - Other overlap syndromes DNA Double Stranded-Crithidia 6 Weeks M35.1 - Other overlap syndromes UA w Microscopic 6 Weeks M35.1 - Other overlap syndromes Beta-2 Glycoprotein Antibody 6 Weeks D68.61 - Antiphospholipid syndrome Cardiolipin Antibodies 6 Weeks D68.61 - Antiphospholipid syndrome Lupus Anticoagulant Panel 6 Weeks D68.61 - Antiphospholipid syndrome MSA Panel Extended 6 Weeks M60.9 - Myositis, unspecified Scleroderma 12 Panel 6 Weeks M34.9 - Systemic sclerosis, unspecified Erythrocyte Sedimentation Rate 6 Weeks M35.1 - Other overlap syndromes Creatine Kinase Total 6 Weeks M35.1 - Other overlap syndromes Complement C3 6 Weeks M35.1 - Other overlap syndromes Complement C4 6 Weeks M35.1 - Other overlap syndromes Protein Creatinine Ratio, Ur 6 Weeks M35.1 - Other overlap syndromes Sjogren's Antibodies 6 Weeks M35.1 - Other overlap syndromes Medications: Refilled hydroxychloroquine 200 mg PO DAILY 90 tabs 3RF M35.1 - Other overlap syndromes Coding Level of Care Code Est Pt Level 5 (00358) Diagnoses MCTD (mixed connective tissue disease) M35.1 Ocular cicatricial pemphigoid L12.1
[2023-07-12 07:55] VITALS: BP 100/82; PULSE 71; TEMP 36.2; O2SAT 100; BMI 21.4
== END 2023-07-12 08:31 | disposition home or self-care (01) ==
PROVIDERS: PCP Internal Medicine; Visit Provider Student in an Organized Health Care Education/Training Program
DX: M35.1 Other overlap syndromes (principal); L12.1 Cicatricial pemphigoid; M35.00 Sjogren syndrome, unspecified
CPT/HCPCS: 99215

== ENCOUNTER → 2023-07-12 07:50 | Outpatient (BNVA) | payer OTHER, SELFPAY | PROVIDERS: PCP Internal Medicine; Visit Provider Student in an Organized Health Care Education/Training Program ==

== ENCOUNTER 2023-08-08 11:30 | Outpatient (REF) | payer OTHER, SELFPAY ==
[2023-08-08 11:43] LABS: MANUAL DIFF FLAG NO
[2023-08-08 11:46] LABS: Basophils Percent Auto 0.4 % (0-2); Eosinophils Percent Auto 0.8 % (0-4); Hematocrit 31.1 % (37.0-47.0); Hemoglobin 10.1 g/dl (12.0-16.0); Imm Gran Abs Auto 0.01 X10*3/uL (0.00-0.03); Imm Gran Pct Auto 0.4 % (0.0-0.4); Lymphocytes Absolute Auto 0.7 X10*3/uL (1.2-4.9); Lymphocytes Percent Auto 25.5 % (20-40); Mean Corpuscular HGB Conc 32.5 g/dl (31.0-35.0); Mean Corpuscular Hemoglobin 29.8 pg (27.0-33.0); Mean Corpuscular Volume 91.7 fL (80.0-98.0); Mean Platelet Volume 10.1 fL (9.4-12.3); Monocytes Absolute Auto 0.2 X10*3/uL (0.1-1.2); Neutrophils Absolute Auto 1.6 x10*3/uL (2.0-8.3); Neutrophils Percent Auto 63.9 % (45-73); Platelet Count 182 X10*3/uL (160-400); Red Blood Count 3.39 X10*6/uL (4.20-5.50); Red Cell Distribution Width 20.7 % (11.0-16.0); White Blood Count 2.6 X10*3/uL (4.8-10.8)
[2023-08-08 12:06] LABS: Alanine Aminotransferase 10 U/L (0-31); Albumin Level 3.9 g/dL (3.5-5.0); Alkaline Phosphatase 47 U/L (39-117); Anion Gap 10 (12-20); Aspartate Amino Transferase 15 U/L (5-31); Bilirubin Total 0.4 mg/dL (0.0-1.0); Blood Urea Nitrogen 9 mg/dL (9-16); Calcium 9.4 mg/dL (8.4-10.2); Carbon Dioxide 25 mmol/L (22-29); Chloride 105 mmol/L (96-108); Estimated Glomerular Filt Rate > 60; Glucose Random 93 mg/dL (60-115); Potassium 3.8 mmol/L (3.3-5.1); Sodium 136 mmol/L (135-145)
[2023-08-08 12:20] LABS: Ferritin 34 ng/mL (10-250)
== END 2023-08-08 11:31 | disposition home or self-care (01) ==
LOC: HO.LAB 11:30
PROVIDERS: Absent Provider Student in an Organized Health Care Education/Training Program; PCP Internal Medicine; Visit Provider Internal Medicine Medical Oncology
DX: D72.819 Decreased white blood cell count, unspecified (principal)
CPT/HCPCS: 36415; 80053; 82728; 85025

== ENCOUNTER 2023-08-22 11:51 | Outpatient (REF) | payer OTHER, SELFPAY ==
[2023-08-22 12:14] LABS: MANUAL DIFF FLAG NO
[2023-08-22 12:54] LABS: Basophils Percent Auto 0.7 % (0-2); Hematocrit 32.8 % (37.0-47.0); Hemoglobin 10.9 g/dl (12.0-16.0); Imm Gran Abs Auto 0.01 X10*3/uL (0.00-0.03); Imm Gran Pct Auto 0.3 % (0.0-0.4); Lymphocytes Absolute Auto 0.6 X10*3/uL (1.2-4.9); Lymphocytes Percent Auto 18.6 % (20-40); Mean Corpuscular HGB Conc 33.2 g/dl (31.0-35.0); Mean Corpuscular Hemoglobin 30.8 pg (27.0-33.0); Mean Corpuscular Volume 92.7 fL (80.0-98.0); Mean Platelet Volume 10.7 fL (9.4-12.3); Monocytes Absolute Auto 0.2 X10*3/uL (0.1-1.2); Monocytes Percent Auto 7.4 % (2-11); Neutrophils Absolute Auto 2.2 x10*3/uL (2.0-8.3); Platelet Count 195 X10*3/uL (160-400); Red Blood Count 3.54 X10*6/uL (4.20-5.50); Red Cell Distribution Width 18.6 % (11.0-16.0)
[2023-08-22 13:34] LABS: Alanine Aminotransferase 12 U/L (0-31); Albumin Level 4.2 g/dL (3.5-5.0); Alkaline Phosphatase 55 U/L (39-117); Anion Gap 9 (12-20); Aspartate Amino Transferase 19 U/L (5-31); Bilirubin Total 0.4 mg/dL (0.0-1.0); Blood Urea Nitrogen 11 mg/dL (9-16); C Reactive Protein < 0.10 mg/dL (< or = 0.50); Calcium 9.7 mg/dL (8.4-10.2); Carbon Dioxide 26 mmol/L (22-29); Chloride 104 mmol/L (96-108); Estimated Glomerular Filt Rate > 60; Glucose Random 87 mg/dL (60-115); Potassium 3.4 mmol/L (3.3-5.1); Sodium 136 mmol/L (135-145); Total Protein 9.9 g/dL (6.5-8.0)
[2023-08-22 13:45] LABS: Erythrocyte Sedimentation Rate 74 MM/HR (0-20)
[2023-08-22 17:34] LABS: Appearance Urine Clear; Color Urine Yellow; Glucose Urine UA Negative (Negative); Leukocyte Esterase Urine Negative (Negative); Nitrite Urine Negative (Negative); Urine Blood Negative (Negative); Urine Ketones Negative (Negative); Urine Protein Negative (Neg-Trace)
[2023-08-22 17:38] LABS: Bacteria Urine 1+ (None Seen); Hyaline Casts Urine 0-2 /LPF (0-2); RBC Urine 0-2 /HPF (0-2); WBC Urine 0-5 /HPF (0-5)
[2023-08-22 18:35] LABS: Creatinine Urine 70.36 mg/dL; Total Protein Urine Random < 7 mg/dL (<12)
[2023-08-23 12:44] LABS: Cardiolipin IgG Ab <2.0 GPL-U/mL; Cardiolipin IgM Ab <2.0 MPL-U/mL
[2023-08-23 19:18] LABS: Complement C3 96 mg/dL (83-193)
[2023-08-23 21:38] LABS: Anti DNA DS Antibody 4 IU/mL; Antibody to SS-A Antigen >8.0 POS AI (<1.0 NEG); Antibody to SS-B Antigen >8.0 POS AI (<1.0 NEG); SM/Ribonucleoprotein Ab <1.0 NEG AI (<1.0 NEG); Smith Protein <1.0 NEG AI (<1.0 NEG)
[2023-08-26 15:12] LABS: DNAds, Crithidia Antibody 1:20 titer (<1:10); DNAds, Crithidia Antibody Positive (Negative)
[2023-08-29 15:09] LABS: PTT (LAC) Screen 34 sec (<=40)
[2023-08-30 23:09] LABS: Beta-2 Glycoprotein IgA 5.9 U/mL (<20.0); Beta-2 Glycoprotein IgG <2.0 U/mL (<20.0); Beta-2 Glycoprotein IgM <2.0 U/mL (<20.0)
[2023-08-31 11:39] LABS: Centromere Protein A Ab <11 SI (<11); Centromere Protein B Ab <11 SI (<11); Fibrillarin Ab <11 SI (<11); PM SCL 100 Ab <11 SI (<11); PM SCL 75 Ab <11 SI (<11); RNA Polymerase III RP11 Ab <11 SI (<11); RNA Polymerase III RP155 Ab <11 SI (<11); SCL-70 Extractable Nuclear Ab <11 SI (<11); Th-To Ab <11 SI (<11); U1 SNRNP RNP 70KD <11 SI (<11); U1 SNRNP RNP A <11 SI (<11); U1 SNRNP RNP C <11 SI (<11)
[2023-09-14 19:23] LABS: Cytosolic 5'nuc 1A Ab IgG 14 Units; Ej Ab <11 SI (<11); HMGCR Ab IgG <2 CU (<20); Jo-1 Ab <11 SI (<11); MDA5 Ab <11 SI (<11); Mi-2 alpha Ab <11 SI (<11); Mi-2 beta Ab <11 SI (<11); NXP-2 (MJ) Ab <11 SI (<11); Oj Ab <11 SI (<11); Pl-12 Ab <11 SI (<11); Pl-7 Ab <11 SI (<11); SRP Ab <11 SI (<11); TIF1 gamma Ab <11 SI (<11)
== END 2023-08-22 11:52 | disposition home or self-care (01) ==
LOC: HO.LAB 11:51
PROVIDERS: PCP Internal Medicine; Visit Provider Student in an Organized Health Care Education/Training Program
DX: M35.1 Other overlap syndromes (principal); M34.9 Systemic sclerosis, unspecified; D68.61 Antiphospholipid syndrome
CPT/HCPCS: 36415; 80053; 81001; 82550; 82570; 83516; 83520; 84156; 84182; 85025; 85597; 85598; 85613; 85652; 85730; 86140; 86146; 86147; 86160; 86225; 86235; 86255

== ENCOUNTER 2023-09-20 07:51 | Outpatient (AMB) | payer OTHER, SELFPAY ==
--- NOTE | 2023-09-20 07:55 | A.OFFVIS_ITS ---
Intake Vital Signs 09/20/23 07:56 Height 5 ft 1 in Weight 110 lb 14.28 oz BMI 21.0 BP 102/58 L Blood Pressure Location Rt brachial Position Sitting Pulse 91 Pulse Source Pulse Oximeter Pulse Oximetry (%) 97 Oxygen Delivery Method Room Air Intake Visit Reasons: SLE Intake Note: Patient last seen 07/12/23 presents today for follow up and test results. Malt Roaster Required: No Accompanied by: Self / Same As Patient Allergies Penicillins Allergy (Intermediate, Verified 09/20/23 07:58) Swelling Medication List - Last Reconciled 09/20/23 by Jamie Jeffery MD betamethasone dipropionate 0.05% 0.05 appl topical DAILY PRN cetirizine (Zyrtec) 10 mg PO DAILY PRN cyanocobalamin (vitamin B-12) 1,000 mcg sublingual DAILY cyclosporine 0.09% (Cequa) 1 drp ophthalmic (eye) BID cyclosporine modified 50 mg PO BID doxycycline hyclate 100 mg PO DAILY ferrous sulfate 325 mg PO DAILY folic acid 3 mg (3 x 1 mg) PO DAILY hydroxychloroquine 200 mg PO DAILY lotilaner 0.25% (Xdemvy) 0.25 drps ophthalmic (eye) DAILY methotrexate sodium 17.5 mg PO QWEEK omega-3 fatty acids 1,000 mg PO DAILY valacyclovir (Valtrex) 1,000 mg PO DAILY varenicline (Tyrvaya) 0.03 sprays intranasal DAILY HPI HPI Comments History of Present Illness Details 48-year-old female with mixed connective tissue disease returns for follow-up. She was recently evaluated by her canal boat captain and fixate was increased to 17.5 mg weekly and cyclosporine and 250 mg Twice daily. She states that her eyes have been feeling about the same overall. She states that she has noticed some deformity of her nails recently. The itchy rashes on her hands have improved. She denies any other symptoms. Most recent history by Dr. Gaming 02/2023: The patient returns for evaluatio n of her sicca symptoms thought to be due to mixed connective tissue disease. She continues to struggle with dry eyes. She relates also at times they are somewhat itchy consistent with an allergic conjunctivitis. She was seen at [facility]. She was also told she had some element of ocular rosacea. She does take some doxycycline for the rosacea. The Restasis was upgraded to Cequa which is a higher concentration of cyclosporin but she does not think it has helped so far. The pilocarpine did not improve any of her ocular symptoms so she stopped it. She does not have any dry mouth. She also has been using the nasal spray Tyrvaya. The this is a preparation with varenicline. She also had punctal plugs in but they did fall out as she scratches the area. At [facility] she was offered a trial of a new drug but that would require her to stop all her other treatments and would also require monthly evaluations in [place]. She does not have any arthralgias or skin rashes. Last year she had some eczema that resolved with some prednisone. There continues to be significant leukopenia and anemia. She did see Hematology yesterday. Workup showed a low iron saturation although the serum iron level was 36. The B12 level was normal but in the lower range. [facility] Medical History Iron deficiency anemia Leukopenia MCTD (mixed connective tissue disease) Raynaud phenomenon Sjogren's disease Surgical History Hx of colonoscopy History of esophagogastroduodenoscopy (EGD) Hx of eye surgery Family History Mother Ovarian cancer Breast cancer Lung cancer BRCA gene mutation positive Maternal Grandfather Rheumatoid arthritis Lung fibrosis Father Lung fibrosis Sister Thyroiditis Social History Household Members: Significant Other Housing: House Alcohol intake: current Alcohol intake frequency: a few times a month Alcohol type: beer, wine and hard liquor Patient Tobacco Use Status: Never used Tobacco e-Cigarette/Vaping Use: Never Used service: No 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 Review of Systems Const Denies fever(s) and Denies weight loss Eyes Reports irritation and Reports photophobia Card Denies dyspnea Resp Denies cough and Denies dyspnea GI Reports no additional complaints Musc Denies arthralgias and Denies joint swelling Skin/Breast Reports nail changes Physical Exam Vital Signs: Last Vital Signs Pulse 91 09/20/23 07:56 BP 102/58 L 09/20/23 07:56 Pulse Ox 97 09/20/23 07:56 Oxygen Delivery Method Room Air 09/20/23 07:56 BMI result Body Mass Index 21.0 Const General: cooperative, healthy appearing and comfortable Nutritional Appearance: average body habitus Orientation/consciousness: patient oriented x3 Limitations: no limitations HEENT Head: Yes normocephalic and Yes atraumatic Mouth: moist mucous membranes Eyes Direct Ophthalmoscopy: photophobia Resp Effort & Inspection: normal respiratory effort and able to speak in complete s entences Auscultation: clear to auscultation bilaterally Cardio Rate: regular rate Rhythm: regular rhythm Heart sounds: S1 normal heart sound present GI Inspection: No distended Palpation (GI): Soft to palpation and nontender Neuro General: patient oriented x3 Extrem Other: Slightly puffy fingers but no active synovitis Eczematous rashes on both fingers , significantly improved compared to last visit Normal nailfold capillaroscopy Mild nail dystrophy most prominent right thumb Normal range of motion of hands, wrists, elbows and shoulders without pain Proximal muscle strength 5/5 all 4 limbs Assessment & Plan Assessment & Plan (1) MCTD (mixed connective tissue disease): Comment: Diagnosed 2020: 3 years of dry eyes, Raynaud's symptoms, leukopenia, anemia, dry mouth. Positive Sjogren's antibodies and anti [employer]. Hydroxychloroquine started in the fall of 2020. Hydroxychloroquine stopped in the fall of 2021; restarted spring 2022 due to leukopenia Code(s): M35.1 - Other overlap syndromes Plan: 48-year-old female with MCTD, features of Sjogren's, MCTD and lupus who presents for follow-up. Doing well overall. 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 on methotrexate 17.5 mg weekly and cyclosporin 50 mg BID Continue to follow-up with ophthalmology. Her Raynaud's is well controlled. There is no active synovitis. There is some mild nail dystrophy, most prominent right thumb. Will increase folic acid to 3 mg daily (except day of methotrexate) Patient's grandmother had rheumatoid arthritis and lung fibrosis, father of lung disease. Given her stiff Sjogren's serologies. Patient should get screen for pulmonary hypertension and interstitial lung disease. Will order PFT and 2D echo (2) Ocular cicatricial pemphigoid: Comment: seen at [facility], Dr. Burnett, Methotrexate and cyclosporine started 05/2023 Code(s): L12.1 - Cicatricial pemphigoid Plan: Follow-up with ophthalmology Plan I spent 25 minutes reviewing patient's chart, evaluating patient, ordering diagnostic workup, counseling patient and documenting in the chart Orders: Orders CA echo transthoracic complete Today M35.1 - Other overlap syndromes PFT pulmonary function test Today M35.1 - Other overlap syndromes, R06.00 - Dyspnea, unspecified Medications: Changed From folic acid 1 mg PO DAILY To folic acid except the day you take Methotrexate 3 mg (3 x 1 mg) PO DAILY 270 tabs 1RF Coding Level of Care Code Est Pt Level 4 (53231) Diagnoses MCTD (mixed connective tissue disease) M35.1 Ocular cicatricial pemphigoid L12.1
[2023-09-20 07:56] VITALS: BP 102/58; PULSE 91; O2SAT 97; BMI 21.0
== END 2023-09-20 08:14 | disposition home or self-care (01) ==
PROVIDERS: PCP Internal Medicine; Visit Provider Student in an Organized Health Care Education/Training Program
DX: M35.1 Other overlap syndromes (principal); L12.1 Cicatricial pemphigoid
CPT/HCPCS: 99214

== ENCOUNTER → 2023-09-20 07:51 | Outpatient (BNVA) | payer OTHER, SELFPAY | PROVIDERS: PCP Internal Medicine; Visit Provider Student in an Organized Health Care Education/Training Program ==

== ENCOUNTER 2023-10-03 11:30 | Outpatient (REF) | payer OTHER, SELFPAY ==
--- NOTE | 2023-10-03 13:49 | PFT_ITS ---
Indication: Asthma Spirometry [ FEV1 to FVC 76%; FEV1 2.61 L; FVC 3.44 L. no significant response to bronchodilators. Maximum voluntary ventilation within normal limits.] Lung Volumes [ Total lung capacity 120% predicted; residual volume 194% predicted] Diffusion Capacity [ DLCO 83% predicted] comparisons [none] Interpretation [ No obstructive nor restrictive ventilatory defects identified. No significant response to bronchodilators noted. The patient does have significant hyperinflation and air trapping which could be due to underlying small airways disease. Diffusing capacity is within normal limits. If asthma is a differential methacholine challenge may be helpful in assessing hyperreactive airways. Clinical correlation warranted.] MTDD
== END 2023-10-03 11:31 | disposition home or self-care (01) ==
LOC: HO.RESP 11:30
PROVIDERS: PCP Internal Medicine; Visit Provider Student in an Organized Health Care Education/Training Program
DX: R06.00 Dyspnea, unspecified (principal); M35.1 Other overlap syndromes
CPT/HCPCS: 94010; 94640; 94727; 94729

== ENCOUNTER → 2023-10-03 13:49 | Outpatient (BNV) | payer OTHER, SELFPAY | PROVIDERS: PCP Internal Medicine; Visit Provider Hospitalist | DX: J45.909 Unspecified asthma, uncomplicated (principal) | CPT/HCPCS: 94060; 94727; 94729 ==

== ENCOUNTER → 2023-10-23 10:49 | Outpatient (REF) | payer OTHER, SELFPAY ==
--- NOTE | 2023-10-23 10:54 | CA_ITS ---
Transthoracic Echocardiogram Patient (Last, First, Middle): Breonna Mendoza M Gender: Female Date of : 1975 Age: 48 Procedure Date: 10/23/2023 Procedure Type: Transthoracic Echocardiogram Location: OP Height: 154.94 cm Weight: 52.16 kg BSA: 1.49 m2 Heart Rate: 68 bpm BP: 108 / 68 mmHg Doctor Of Naturopathic Medicine: SB Referring MD: Jamie Jeffery MD Aesthetics Instructor: Daniel Garcia MD Symptoms: M35.1 - Other overlap syndromes Study Quality: Adequate ECG Rhythm: Sinus Conclusions: - Normal study Findings Left Ventricle Normal left ventricular size, thickness, and systolic function. The visually estimated ejection fraction is between 55-60%. Spectral Doppler is indicative of a normal filling pattern. Peak GLS is -23.6%, within normal limits. Right Ventricle Normal right ventricular cavity size and systolic function. Atria Both atria are normal in size. There is no evidence of interatrial shunt. Aortic Valve Normal aortic valve structure and function. There is no aortic valve stenosis. There is no aortic valve regurgitation. Mitral Valve Normal mitral valve structure and function. There is no mitral valve regurgitation. There is no mitral valve stenosis. Pulmonic Valve The pulmonic valve is likely normal. There is trace pulmonic valve regurgitation. Tricuspid Valve Normal tricuspid valve structure. There is trace tricuspid valve regurgitation. The right ventricular systolic pressure is normal. The right ventricular systolic pressure is 27 mmHg. Normal right atrial pressure. There is no evidence of pulmonary hypertension. Great Vessels All visible segments of the aorta are normal in size. The visualized portions of the pulmonary artery and branches are normal. Venous The inferior vena cava is normal in size and collapses greater than 50% with inspiration. Pericardium/Pleural There is no evidence of pericardial effusion. Prior Study Comparison No prior study available for comparison. Measurements 2D Linear Measurements IVSd: 0.82 0.6-0.9/0.6-1.0 cm LVIDd: 4.92 3.9-5.3/4.2-5.9 cm LVIDd Index: 3.30 2.4-3.2/2.2-3.1 cm/m2 LVIDs: 3.11 2.0-3.6 cm LVPWd: 0.57 0.7-1.1 cm LA Diam: 3.50 2.7-3.8/3.0-4.0 cm LAIDs Index: 2.35 1.5-2.3 cm/m2 LV Mass: 137.18 67-162/88-224 g LV Mass Index: 92.07 43-95/49-115 g/m2 LVOT Diam: 2.10 3.0+(-)1.3 cm 2D Systolic Function EF 4C: 52.90 >55% EF 2C: 59.20 >55% EF BiP: 56.10 >55% Mitral Valve MV Pk E: 0.76 MV PK A: 0.56 MV Decel Time: 174.00 E/A: 1.40 E'Lateral: 12.70 E'Medial: 9.25 E/E' Med: 8.20 E/E' Lat: 6.00 PHT: 51.00 MVA PHT: 4.31 Decel [place]: 4.40 Aortic Valve AoV Pk Niraj: 1.17 AoV Pk Grad: 5.00 ALDAIR: 3.25 LVOT LVOT Pk Niraj: 1.14 LVOT Mn Niraj: 0.75 LVOT VTI: 0.23 LVOT Pk Grad: 5.00 LVOT Mn Grad: 3.00 LVOT Diam: 2.10 LVOT Area: 3.46 Diastolic Function MV Pk E: 0.76 MV Pk A: 0.56 E/A: 1.40 E'Medial: 9.25 E/E' Med: 8.20 E' Laterial: 12.70 E/E' Lat: 6.00 Right Ventricle TAPSE (mm): 26.90 TVS' Niraj: 11.30 Tricuspid Valve TR Pk Niraj: 2.16 TR Pk Grad: 19.00 RA Press: 8.00 RVSP: 27.00 Great Vessels Aorta Sinus of Valsalva: 2.70 2.0-3.5 cm Ao Asc: 2.90 2.1-3.4 cm Pulmonary Veins Pulm Vein S/D 1.20 Pulmonary Valve PV Pk Niraj: 0.80 Peak PV Grad: 3.00 Updated in Other Vendor System with Status of Final Daniel Garcia MD electronically signed on 10/23/2023 4:38:22 PM with status of Final
== END ==
LOC: HO.CARD 10:49
PROVIDERS: PCP Internal Medicine; Visit Provider Student in an Organized Health Care Education/Training Program
DX: M35.1 Other overlap syndromes (principal)
CPT/HCPCS: 93306; 93356

== ENCOUNTER → 2023-10-23 10:54 | Outpatient (BNV) | payer OTHER, SELFPAY | PROVIDERS: PCP Internal Medicine; Visit Provider Internal Medicine Cardiovascular Disease | DX: I36.1 Nonrheumatic tricuspid (valve) insufficiency (principal) | CPT/HCPCS: 93306; 93356 ==

== ENCOUNTER 2023-12-25 11:57 | Outpatient (REF) | payer OTHER, SELFPAY | END 2023-12-25 11:58 | disposition home or self-care (01) | LOC: HO.LAB 11:57 | PROVIDERS: Visit Provider Physician Assistant | DX: T78.40XA Allergy, unspecified, initial encounter (principal) | CPT/HCPCS: 36415; 82784; 86003; 86364 ==

== ENCOUNTER 2024-02-21 07:53 | Outpatient (AMB) | payer OTHER, SELFPAY ==
--- NOTE | 2024-02-21 07:55 | A.OFFVIS_ITS ---
Vital Signs 02/21/24 08:00 Height 5 ft 1 in Weight 114 lb 6.719 oz BMI 21.6 BP 115/70 Blood Pressure Location Lt brachial Position Sitting Pulse 57 Pulse Source Pulse Oximeter Pulse Oximetry (%) 100 Oxygen Delivery Method Room Air Intake Visit Reasons: Sjogren's Intake Note: Patient presents for Sjogren's. Allergies Penicillins Allergy (Intermediate, Verified 02/21/24 07:58) Swelling Medication List - Last Reconciled 02/21/24 by Jamie Jeffery MD betamethasone dipropionate 0.05% 0.05 appl topical DAILY PRN cetirizine (Zyrtec) 10 mg PO DAILY PRN corticotropin (Acthar Selfject) 80 units subcut Q72H corticotropin (Acthar) 80 units IM Q72H cyanocobalamin (vitamin B-12) 1,000 mcg sublingual DAILY cyclosporine 0.09% (Cequa) 1 drp ophthalmic (eye) BID cyclosporine modified 50 mg PO BID doxycycline hyclate 100 mg PO DAILY ferrous sulfate 325 mg PO DAILY folic acid 3 mg (3 x 1 mg) PO DAILY hydroxychloroquine 200 mg PO DAILY lotilaner 0.25% (Xdemvy) 0.25 drps ophthalmic (eye) DAILY methotrexate sodium 17.5 mg PO QWEEK omega-3 fatty acids 1,000 mg PO DAILY valacyclovir (Valtrex) 1,000 mg PO DAILY varenicline (Tyrvaya) 0.03 sprays intranasal DAILY HPI Comments Details: 48-year-old female with mixed connective tissue disease returns for follow-up. She is on methotrexate, cyclosporine, hydroxychloroquine. She was evaluated by her clay products machine operator in October and was told that she continues to have inflammation. She was started on Acthar gel twice a week. When re-evaluated in January she was told that she continues to have inflammation and it was suggested to increase it to 3 times a week however patient stated that she may have not been getting the full dose. She remains on Acthar gel twice a week. Her nails have improved significantly. She was evaluated by stage driver and told that she has onycholysis which will likely get better in the summer and worse in winter time. She denies any cough, shortness of breath or chest pain. Most recent history by Dr. Gaming 02/2023: The patient returns for evalua tion of her sicca symptoms thought to be due to mixed connective tissue disease. She continues to struggle with dry eyes. She relates also at times they are somewhat itchy consistent with an allergic conjunctivitis. She was seen at [facility]. She was also told she had some element of ocular rosacea. She does take some doxycycline for the rosacea. The Restasis was upgraded to Cequa which is a higher concentration of cyclosporin but she does not think it has helped so far. The pilocarpine did not improve any of her ocular symptoms so she stopped it. She does not have any dry mouth. She also has been using the nasal spray Tyrvaya. The this is a preparation with varenicline. She also had punctal plugs in but they did fall out as she scratches the area. At [facility] she was offered a trial of a new drug but that would require her to stop all her other treatments and would also require monthly evaluations in [place]. She does not have any arthralgias or skin rashes. Last year she had some eczema that resolved with some prednisone. There continues to be significant leukopenia and anemia. She did see Hematology yesterday. Workup showed a low iron saturation although the serum iron level was 36. The B12 level was normal but in the lower range. [facility] Medical History Iron deficiency anemia Leukopenia MCTD (mixed connective tissue disease) Raynaud phenomenon Sjogren's disease Surgical History Hx of colonoscopy History of esophagogastroduodenoscopy (EGD) Hx of eye surgery Family History Mother Ovarian cancer Breast cancer Lung cancer BRCA gene mutation positive Maternal Grandfather Rheumatoid arthritis Lung fibrosis Father Lung fibrosis Sister Thyroiditis Social History Household Members: Significant Other Housing: House Alcohol intake: current Alcohol intake frequency: a few times a month Alcohol type: beer, wine and hard liquor Patient Tobacco Use Status: Never used Tobacco e-Cigarette/Vaping Use: Never Used service: No 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 Reproductive History Menstrual Total pregnancies: 0 Review of Systems Const Denies fever(s) and Denies weight loss Eyes Reports irritation and Reports photophobia Card Denies dyspnea Resp Denies cough and Denies dyspnea GI Reports no additional complaints Musc Denies arthralgias and Denies joint swelling Physical Exam Vital Signs: Last Vital Signs Pulse 57 02/21/24 08:00 BP 115/70 02/21/24 08:00 Pulse Ox 100 02/21/24 08:00 Oxygen Delivery Method Room Air 02/21/24 08:00 BMI result Body Mass Index 21.6 Const General: cooperative, healthy appearing and comfortable Nutritional Appearance: average body habitus Orientation/consciousness: patient oriented x3 Limitations: no limitations HEENT Head: Yes normocephalic and Yes atraumatic Mouth: moist mucous membranes Eyes Direct Ophthalmoscopy: photophobia Resp Effort & Inspection: normal respiratory effort and able to speak in complete sentences Auscultation: clear to auscultation bilaterally Cardio Rate: regular rate Rhythm: regular rhythm Heart sounds: S1 normal heart sound present GI Inspection: No distended Palpation (GI): Soft to palpation and nontender Neuro General: patient oriented x3 Extrem Other: Fingers are not puffy today, no active synovitis Eczematous rashes resolved on both hands Normal nailfold capillaroscopy Nail onycholysis resolved Normal range of motion of hands, wrists, elbows and shoulders without pain Proximal muscle strength 5/5 all 4 limbs Assessment & Plan Assessment & Plan (1) MCTD (mixed connective tissue disease): Comment: Diagnosed 2020: 3 years of dry eyes, Raynaud's symptoms, leukopenia, anemia, dry mouth. Positive Sjogren's antibodies and anti [employer]. Hydroxychloroquine started in the fall of 2020. Hydroxychloroquine stopped in the fall of 2021; restarted spring 2022 due to leukopenia Code(s): M35.1 - Other overlap syndromes Category: Medical Plan: 48-year-old female with MCTD, features of Sjogren's, MCTD and lupus who presents for follow-up. Doing well overall. Main complaint remains her cicatricial pem phigoid which is managed by clay products machine operator at [facility] on methotrexate 17.5 mg weekly, cyclosporin 50 mg BID and Acthar gel added 10/2023 Continue to follow-up with ophthalmology. Her Raynaud's is well controlled. There is no active synovitis. Onycholysis significantly improved. She stated that she was evaluated by a stage driver and told that will get better in the summer and worsen in winter time. Patient's grandmother had rheumatoid arthritis and lung fibrosis, father of lung disease. I screen patient for ILD & PAH. Her 2D echo and PFTs were unremarkable. Plan to repeat those studies in 1-2 years Labs before next visit in 6 months (2) Ocular cicatricial pemphigoid: Comment: seen at [facility], Dr. Burnett, Methotrexate and cyclosporine started 05/2023 Acthar gel added 10/2023 Code(s): L12.1 - Cicatricial pemphigoid Category: Medical Plan: Follow-up with ophthalmology (3) Immunization counseling: Code(s): Z71.85 - Encounter for immunization safety counseling Category: Medical Plan: Patient had the flu and COVID vaccines last Sunday, she skipped her methotrexate dose on Sunday and has been holding her cyclosporin and hydroxychloroquine. Advised patient to resume her methotrexate next week and restart her cyclosporin and hydroxychloroquine Plan I spent 25 minutes reviewing patient's chart, evaluating patient, ordering diagnostic workup, counseling patient and documenting in the chart Orders: Orders Complete Blood Count Auto Diff 6 Months M32.9 - Systemic lupus erythematosus, unspecified C Reactive Protein 6 Months M32.9 - Systemic lupus erythematosus, unspecified Complement C3 6 Months M32.9 - Systemic lupus erythematosus, unspecified Complement C4 6 Months M32.9 - Systemic lupus erythematosus, unspecified Comprehensive Met. Panel 6 Months M32.9 - Systemic lupus erythematosus, unspecified Erythrocyte Sedimentation Rate 6 Months M32.9 - Systemic lupus erythematosus, unspecified Anti DNA DS Antibody 6 Months M32.9 - Systemic lupus erythematosus, unspecified Protein Creatinine Ratio, Ur 6 Months M32.9 - Systemic lupus erythematosus, unspecified UA w Microscopic 6 Months M32.9 - Systemic lupus erythematosus, unspecified Coding Level of Care Code Est Pt Level 4 (89743) Diagnoses MCTD (mixed connective tissue disease) M35.1 Ocular cicatricial pemphigoid L12.1 Immunization counseling Z71.85
[2024-02-21 08:00] VITALS: BP 115/70; PULSE 57; O2SAT 100; BMI 21.6
== END 2024-02-21 08:20 | disposition home or self-care (01) ==
PROVIDERS: PCP Internal Medicine; Visit Provider Student in an Organized Health Care Education/Training Program
DX: M35.1 Other overlap syndromes (principal); L12.1 Cicatricial pemphigoid; Z71.85 Encounter for immunization safety counseling
CPT/HCPCS: 99214

== ENCOUNTER → 2024-02-21 07:53 | Outpatient (BNVA) | payer OTHER, SELFPAY | PROVIDERS: PCP Internal Medicine; Visit Provider Student in an Organized Health Care Education/Training Program ==

== ENCOUNTER 2024-04-21 11:40 | Outpatient (REF) | payer OTHER, SELFPAY ==
--- NOTE | ~2024-04-21 | MM_ITS ---
EXAMINATION: MM SCREENING DIGITAL BREAST TOMOSYNTHESIS, BILATERAL CLINICAL INFORMATION: Screening. Asymptomatic. COMPARISON: Mammography: Comparison is made with available priors TECHNIQUE: Digital breast mammography with tomosynthesis is performed in both the craniocaudal and mediolateral oblique views along with computer-aided detection (CAD). FINDINGS: The breasts are heterogeneously dense, which may obscure small masses (ACR BI-RADS breast composition Category c). There are no significant masses, abnormal calcifications, or other abnormalities. MM/MM tomosynthesis screening BI IMPRESSION: No mammographic evidence of malignancy. ASSESSMENT: BI-RADS BI-RADS 1 - Negative RECOMMENDATION: Routine annual mammography screening. 1 year F/U This examination should not preclude the clinical evaluation of a suspicious palpable abnormality. This patient's information was entered into a reminder system with a target due date for their next mammogram. Electronically signed by: Sari Cleary DO 04/22/2024 10:26 AM ILYA
== END 2024-04-21 11:41 | disposition home or self-care (01) ==
LOC: HO.MAMMO 11:40
PROVIDERS: PCP Physician Assistant; Visit Provider Internal Medicine
DX: Z12.31 Encounter for screening mammogram for malignant neoplasm of breast (principal)
CPT/HCPCS: 77063; 77067

== ENCOUNTER → 2024-04-21 12:00 | Outpatient (BNV) | payer OTHER, SELFPAY | PROVIDERS: PCP Physician Assistant; Visit Provider Internal Medicine | DX: Z12.31 Encounter for screening mammogram for malignant neoplasm of breast (principal) | CPT/HCPCS: 77063; 77067 ==

== ENCOUNTER 2024-11-05 11:15 | Outpatient (REF) | payer OTHER, SELFPAY ==
[2024-11-05 11:33] LABS: MANUAL DIFF FLAG NO
[2024-11-05 11:39] LABS: Basophils Percent Auto 0.2 % (0-2); Hematocrit 35.6 % (37.0-47.0); Hemoglobin 11.8 g/dl (12.0-16.0); Imm Gran Abs Auto 0.01 X10*3/uL (0.00-0.03); Imm Gran Pct Auto 0.2 % (0.0-0.4); Lymphocytes Absolute Auto 0.3 X10*3/uL (1.2-4.9); Lymphocytes Percent Auto 6.2 % (20-40); Mean Corpuscular HGB Conc 33.1 g/dl (31.0-35.0); Mean Corpuscular Hemoglobin 32.7 pg (27.0-33.0); Mean Corpuscular Volume 98.6 fL (80.0-98.0); Mean Platelet Volume 10.7 fL (9.4-12.3); Monocytes Absolute Auto 0.3 X10*3/uL (0.1-1.2); Monocytes Percent Auto 6.2 % (2-11); Neutrophils Absolute Auto 3.9 x10*3/uL (2.0-8.3); Neutrophils Percent Auto 87.2 % (45-73); Platelet Count 214 X10*3/uL (160-400); Red Blood Count 3.61 X10*6/uL (4.20-5.50); Red Cell Distribution Width 13.7 % (11.0-16.0); White Blood Count 4.5 X10*3/uL (4.8-10.8)
[2024-11-05 11:53] LABS: Alanine Aminotransferase 11 U/L (0-31); Albumin Level 4.1 g/dL (3.5-5.0); Alkaline Phosphatase 53 U/L (39-117); Anion Gap 11 (12-20); Aspartate Amino Transferase 20 U/L (5-31); Bilirubin Total 0.6 mg/dL (0.0-1.0); Blood Urea Nitrogen 9 mg/dL (9-16); C Reactive Protein < 0.10 mg/dL (< or = 0.50); Calcium 9.2 mg/dL (8.4-10.2); Carbon Dioxide 29 mmol/L (22-29); Chloride 107 mmol/L (96-108); Estimated Glomerular Filt Rate > 60; Glucose Random 94 mg/dL (60-115); Potassium 3.6 mmol/L (3.3-5.1); Sodium 143 mmol/L (135-145); Total Protein 7.8 g/dL (6.5-8.0)
--- OUTSIDE RECORDS SUMMARY | 2024-11-05 12:16 | XMS_ITS | Data Portability ---
Author Organization [place] - [facility] Address [address] [place] [address] Care Team Providers Care Human Resources Receptionist Name Role Phone [facility] Samuel herron Assessment Encounter Date Assessment Date Assessment LastModified by Organization Details LastModified Time 03/21/2016 03/21/2016 Normal pelvic exam PAP/HPV Maternal hx of Breast Cancer at 54 (John AT 72) MGM BSE reinforced Exercise, Diet, folic acid reviewed) Reviewed fertility: Given age, would check labs & SA T/C HSG (Hx of Chlam RTC annual/prn vferlan Not available 03/21/2016 20:23:43 03/22/2017 03/22/2017 Normal pelvic exam PAP/HPV Long Hx of abnormal PAP's Most recent PAP of 03/26 LGSIL, Cannot r/o HGSIL Colpo bx: Neg Compliance with repeats is an issue Maternal HX fo Breast ca & ovarian MGM Pt was BRCA tested in 2012, NEG BSE reinforced Pelvic USN to check ovaries, CA-125 Infertility: Normal FSH last year Referral to [facility] (41 yo) On folic acid RTC annual/prn [email or web address] Not available 03/22/2017 14:22:06 Plan of Treatment Reminders Order Date Submit Date Provider Last Modified By Organization Details Last Modified Time Details Appointments None recorded. Lab surgical pathology study 2016 SHANELLE [facility], [address] [place], [address] 7 11:51:19 urinalysis, dipstick 2016 017 SHANELLE In-Office Order, Internal Use Only DO Not Attach Compendium DO Not Attach Compendium, Do Not Delete/merge, [id number] 7 14:26:10 pap, IG + CT/NG + HR HPV + reflex HPV (16+18) 2016 017 [facility], [address] [place] [address], [id number] 7 11:31:28 CT + NG DNA, PCR, unspecified specimen 2016 [facility], [address] [place] [address], [id number] 7 11:31:28 hepatitis C Ab, serum 2016 [facility], [address] [place] [address], [id number] 7 13:39:53 HBsAg (hepatitis B surface Ag), confirmatio n, serum 2016 [facility], [address] [place] [address], [id number] 7 13:39:52 RPR (rapid plasma reagin), serum 2016 017 [facility], [address] [place] [address], [id number] 7 13:39:54 HIV 1+2 AB + HIV 1 p24 Ag, qualitative immunoassay , serum 2016 [facility], [address] [place] [address], [id number] 7 13:39:54 test, urine 2015 016 In-Office Order, Internal Use Only DO Not Attach Compendium DO Not Attach Compendium, Do Not Delete/merge, [id number] 6 04:21:41 surgical pathology study 2015 016 [facility], [address] [place] [address], [id number] 6 04:21:53 surgical pathology study 2015 016 [facility], [address] [place] [address], [facility] 6 04:21:43 FSH (follicle-s timulating hormone), serum - Day #3 2015 016 [facility], [address] [place] [address], [facility] 6 04:18:24 TSH, serum or plasma 2015 016 [facility], [address] [place] [address], [facility] 6 04:18:41 prolactin, serum 2015 016 [facility], [address] [place] [address], [facility] 6 04:18:22 pap, IG + HPV 2015 016 [facility], [address] [place] [address], [facility] 6 04:18:34 urinalysis, dipstick 2015 016 In-Office Order, Internal Use Only DO Not Attach Compendium DO Not Attach Compendium, Do Not Delete/merge, [id number] 6 04:18:34 surgical pathology study [address] [facility], [address] [place] [address], [facility] 6 16:50:16 test, urine 2015 [facility] In-Office Order, Internal Use Only DO Not Attach Compendium DO Not Attach Compendium, Do Not Delete/merge, [id number] 6 16:50:16 surgical pathology study 2015 016 [facility], [address] [place] [address], [facility] 6 16:07:22 Referral None recorded. Procedures None recorded. Surgeries None recorded. Imaging MAMMO, screening, digital, bilateral, w/ CAD 2016 017 [facility], [address], [address], [place], [address], 7 10:33:21 MAMMO, screening, digital, bilateral, w/ CAD 2015 016 [facility], [address], [address], [place], [address], 6 04:18:34 Medication Orders None recorded. Patient TargetsNo targets recorded. Patient Instructions Encounter Date Encounter Id Patient Instructions Last Modified By Organization Details Last Modified Time 04/11/2016 [id number] abnormal Pap test: care instructions [email or web address] Not available 04/12/2016 08:03:20 03/22/2017 [id number] tips to help you stay healthy [email or web address] Not available 03/22/2017 14:00:47 Reason for Referral None Reported. Results Created Date Observation Date Name Description Value Unit Range Abnormal Flag Note LastModifiedBy Organization Detail LastModifiedTime 03/22/20 17 03/22/2017 urina lysis , dipst ick Interpretati on negati ve Not Available In-Office Order Internal Use Only DO Not Attach Compendium DO Not Attach Compendium, Do Not Delete/merge, [id number] 03/22/2017 13:55:09 04/11/20 16 04/11/2016 pregn anna test, urine Result negati ve Not Available In-Office Order Internal Use Only DO Not Attach Compendium DO Not Attach Compendium, Do Not Delete/merge, [id number] 04/11/2016 14:22:45 03/21/20 16 03/21/2016 urina lysis , dipst ick Interpretati on negati ve Not Available In-Office Order Internal Use Only DO Not Attach Compendium DO Not Attach Compendium, Do Not Delete/merge, [id number] 03/21/2016 13:07:49 09/21/19 16 09/21/2015 pregn anna test, urine Result negati ve Not Available In-Office Order Internal Use Only DO Not Attach Compendium DO Not Attach Compendium, Do Not Delete/merge, [id number] 09/21/2015 14:07:58 09/21/19 16 09/23/2015 surgi lola patho logy study report Surgi lola Patho logy Repor t DIAGN OSIS #1 ENDOC ERVIC AL CURET TINGS : BENIG N ENDOC ERVIC AL GLAND ULAR EPITH ELIUM , NEGAT IVEFO R DYSPL RADHA #2 UTERI NE CERVI X, BIOPS Y AT 9 O'CORBIN CK: ECTOC ERVIC AL SQUAM OUS MUCOS A WITH LOWGR JAMISON SQUAM OUS INTRA EPITH ELIAL LESIO N (MILD DYSPL RADHA; LIANA-1 ) AND UNREM ARKAB LEEND OCERV ICAL GLAND ULAR MUCOS A. SEE COMME NT. El ectro nical ly Mamta d Out * BUCK KINNEY MD Comme nt Comme nt: The biops y findi ngs corre late with the prece ding Pap test ([id number] 6from ). [id number] x 2 Clini lola Diagn osis and Histo ry R87.6 10 ICD Code( s) R87.6 10 Atyp squam cell of undet signf c cyto smr crvx (ASC- US) Tissu e(s) Submi tted A: Endoc ervix , curet tage B: CERVI LOLA BIOPS Y 9:00 Gross Descr iptio n #1 - The conta iner is label ed with the patie nt's name, John Yessi. ECC is noted on the req and the jar. The speci men is recei bautista in forma kirit and consi sts ofirr egula r tissu e fragm ents admix ed with mucus and blood measu ring .15 cc. Thesp ecime n is filte red and submi tted in toto in casse tte 1A. #2 - The conta iner is label ed with the patie nt's name. Colpo /9 o'corbin ck biops y isnot ed on the req and the jar. The speci men is recei bautista in forma kirit and consi stsof two piece s of soft, paez tissu e measu ring from small est, .05 x .05 x .05 cm tolar gest, 0.4 x 0.3 x 0.1 cm. The speci men is submi tted in toto in casse tte 2A.Th e small er speci men may not survi ve proce ssing . [place] Testi ng perfo rmed at [facility] , [address] [place] [address] CLIA [id number] CL-PO [id number] 7. Not Available [facility] [address] [place], [address] 09/23/2015 16:07:22 03/21/20 16 03/21/2016 pap, IG + HPV HPV genotype 16, 18/45 TEST CANCEL ED Genot ype not indic ated per ASCCP Guide lines Not Available [facility] [address] [place], [address] 03/23/2016 08:03:38 03/21/20 16 03/22/2016 pap, IG + HPV report abnormal GYNEC OLOGI LOLA CYTOL OGY REPOR T A. THINP REP PAP (IMAG ER) WITH HPV SCREE N AND REFLE X TO HPV 16,18 /45: SPECI MEN ADEQU ACY: SATIS FACTO RY FOR EVALU ATION ; ENDOC ERVIC AL/TR ANSFO RMATI ON ZONE COMPO NENT PRESE NT. INTER PRETA TION: LO W GRADE SQUAM OUS INTRA EPITH ELIAL LESIO N COMME NT: In addit ion to Low Grade Squam ous Intra epith elial Lesio n, a few cells are sugge stive of High Grade Squam ous Intra epith [place]ial Lesio [place]. [id number] . Codi amos Mamta d Out: MD CARL FERNANDES Y, [place]( CP) CLINI LOLA INFOR MATIO N: LMP: 2015 Z01.4 19 Biops y Date: NI Numbe r of vials /slid es submi tted: 1 Speci men sourc e: CERVI X/END OCERV IX Hyste recto my: N/A Abnor mal Pap Date: Y Addit ional Clini lola Info/ Comme nts: NI Autom ated presc reeni ng of all liqui d based speci mens is perfo rmed by the ThinP rep Imagi ng Syste m, unles s other de state d. The Pap test is a scree vernon test with an inher ent false negat matthias rate. Testi ng [facility] , [address] [place] [address] CLIA [id number] CL-PO [id number] 7. Not Available [facility] [address] [place], [address] 03/23/2016 08:03:38 03/21/20 16 03/22/2016 pap, IG + HPV HPV result Positi ve negati ve abnormal APTIM A HPV assay detec ts 14 high risk HPV types (HPV 16,18 ,31,3 3,35, 39,45 , 51,52 ,56,5 8,59, 66,68 ). The assay is FDA appro bautista for testi ng ThinP rep liqui d Pap vials but not FDA appro bautista for detec ting HPV in SureP ath liqui d Pap speci mens. In-ho use valid ation has shown the assay can detec t all HPV types from this sourc e. Not Available [facility] [address] [place], [address] 03/23/2016 08:03:38 04/11/20 16 04/12/2016 surgi lola patho logy study report Surgi lola Patho logy Repor t DIAGN OSIS #1-UT ERINE CERVI X, BIOPS Y AT 10 O'CORBIN CK: DETAC HED FRAGM ENTS OF UNREM ARKAB LEECT OCERV ICAL SQUAM OUS AND ENDOC ERVIC AL GLAND ULAR EPITH ELIUM , NEGAT MATTHIAS FORDY SPLAS IA. #2-EN DOCER VICAL CURET TINGS : BENIG N ENDOC ERVIC AL GLAND ULAR EPITH ELIUM , NEGAT IVEFO R DYSPL RADHA. SEE COMME NT. El ectro nical ly Mamta d Out * BUCK KINNEY MD Comme nt Comme nt: Revie w of the prece ding Pap test ([id number] from 03/22 ) shows dyspl astic squam ous cells which are not repre sente d in the biops ies. [facility] follo wup as indic ated. [address] x 2 Clini lola Diagn osis and Histo ry HPV test posit matthias ICD Code( s) R87.6 19 Unsp abnor mal cytol og findi ngs in specm n from cervi x uteri Tissu e(s) Submi tted A: Cervi x, biops y @ 10:00 B: Endoc ervix , curet tage Gross Descr iptio n #1 - The conta iner is label ed with the patie nt's name, Yessi Lopez. Noted on conta iner, 10 o'corbin ck biops y. The speci men is recei bautista in forma kirit and consi stsof multi ple fragm ents, admix ed with mucus and blood , of soft paez tissu emeas uring 0.2 cc, which are then filte red and submi tted in toto in one casse ttela beled 1A. #2 The conta iner is label ed with the patie nt's name, Yessi Lopez. Noted on conta iner, ECC. The speci men is recei bautista in forma kirit and consi sts of irreg ulart issue fragm ents, admix ed with mucus and blood , measu ring .1 cc, which are thenf ilter ed and submi tted in toto in one casse tte label ed 2A. The speci men may notsu rvive proce ssing . [place] Testi ng perfo [facility]med at [facility] , [address] [place] [address] CLIA [id number] CL-PO [id number] 7. Not Available [facility] [address] [place] [address], [address] 04/12/2016 12:45:21 04/15/20 16 04/17/2016 TSH, serum or plasm a TSH, highly sensitive 1.64 mIU/L 0.35-4 .94 Not Available [facility] [address] [place] [address], [address] 04/17/2016 12:08:27 04/15/20 16 04/17/2016 FSH (foll icle- stimu latin g hormo ne), serum follicle stimulating hormone (FSH) 6.6 mIU/m L Refer ence Range s ----- ----- ----- ----- ----- ----- ---- Rachel lly Menst ruati ng Femal es Folli cular phase : 3.0-8 .1 Mid-C ycle Peak: 2.6-1 6.7 Lutea l phase : 1.4-5 .5 Post- menop ausal Femal es: 26.7- 133.4 Not Available [facility] [address] [place] [address], [address] 04/17/2016 12:08:27 04/15/20 16 04/17/2016 prola ctin, serum prolactin 9.4 NG/mL 5.2-26 .5 Not Available [facility] [address] [place] [address], [address] 04/17/2016 12:08:28 03/22/20 17 03/22/2017 pap, IG + CT/NG + HR HPV + refle x HPV (16+1 8) HPV genotype 16, 18/45 TEST CANCEL ED Genot ype not indic ated per ASCCP Guide lines Not Available [facility] [address] [place] [address], [address] 03/26/2017 11:31:28 03/22/20 17 03/23/2017 pap, IG + CT/NG + HR HPV + refle x HPV (16+1 8) HPV result Positi ve negati ve abnormal APTIM A HPV assay detec ts 14 high risk HPV types (HPV 16,18 ,31,3 3,35, 39,45 , 51,52 ,56,5 8,59, 66,68 ). The assay is FDA appro bautista for testi ng ThinP rep liqui d Pap vials but not FDA appro bautista for detec ting HPV in SureP ath liqui d Pap speci mens. In-ho use valid ation has shown the assay can detec t all HPV types from this sourc e. Not Available [facility] [address] [place] [address], [id number] 03/26/2017 11:31:28 03/22/20 17 03/26/2017 pap, IG + CT/NG + HR HPV + refle x HPV (16+1 8) report abnormal GYNEC OLOGI LOLA CYTOL OGY REPOR T A. THINP REP PAP (IMAG ER) WITH HPV SCREE N AND REFLE X TO HPV 16,18 /45 and GC/CT : SPECI MEN ADEQU ACY: SATIS FACTO RY FOR EVALU ATION ; ENDOC ERVIC AL/TR ANSFO RMATI ON ZONE COMPO NENT PRESE NT. INTER PRETA TION: HI GH GRADE SQUAM OUS INTRA EPITH ELIAL LESIO N [id number] . Elect amrita amos Mamta d Out: MD RUMA FERNANDES [facility] ON, CT( CP) CLINI LOLA INFOR MATIO N: LMP: NI Z01.4 19 Speci men sourc e: CERVI X/END OCERV IX Abnor mal Pap Date: NI Autom ated presc reeni ng of all liqui d based speci mens is perfo rmed by the ThinP rep Imagi ng Syste m, naveenes s other de state d. The Pap test is a scree vernon test with an inher ent false negat matthias rate. [facility] , [address] [place] [address] CLIA [id number] CL-PO [id number] 7. Not Available [facility] [address] [place] [address], [facility] 03/26/2017 11:31:28 03/22/20 17 03/24/2017 CT + NG DNA, PCR, unspe cifie d speci men source Infor matio n not given Not Available [facility] [address] [place], [address] 03/26/2017 11:31:28 03/22/20 17 03/24/2017 CT + NG DNA, PCR, unspe cifie d speci men chlamydia by DNA Negati ve negati ve Not Available [facility] [address] [place], [address] 03/26/2017 11:31:28 03/22/20 17 03/24/2017 CT + NG DNA, PCR, unspe cifie d speci men GC by DNA Negati ve negati ve Not FDA appro bautista for GC/Ch lamyd ia in femal e urine speci mens. Test valid ated by [facility] for detec ting GC/Ch lamyd ia from this [facility] e. Not Available [facility] [address] [place] [address], [address] 03/26/2017 11:31:28 03/24/2003/26/2017 HBsAg (hepa titis B surfa ce Ag), confi rmati on, serum hepatitis B surface Ag screen Nonrea ctive nonrea ctive Not Available [address], [address] 03/26/2017 13:39:52 03/24/20 17 03/26/2017 hepat itis C Ab, serum hepatitis C antibody 0.17 S/co_ ratio 0.00-0 .79 Nonre activ e Not Available [address], [address] 03/26/2017 13:39:53 03/24/2003/26/2017 HIV 1+2 AB + HIV 1 p24 Ag, quali tativ e immun oassa y, serum HIV 1/2 Ag/Ab cmia Nonrea ctive nonrea ctive Resul ts show no evide nce of infec tion by HIV 1/2. If clini ger indic ated, repea t CMIA or test by nucle ic acid ampli ficat ion. Not Available [address], [address] 03/26/2017 13:39:53 03/24/2003/26/2017 RPR (rapi d plasm a reagi n), serum syphilis jazmyn <0.2 ai <0.9 Negat matthias Not Available [facility] [address] [place] [address], 03/26/2017 13:39:54 03/24/2003/26/2017 CT + NG DNA, PCR, unspe cifie d speci men source UR Not Available [address], [address] 03/26/2017 13:39:55 03/24/2003/26/2017 CT + NG DNA, PCR, unspe cifie d speci men chlamydia by DNA Negati ve negati ve Not Available [facility] [address] [place] [address], [address] 03/26/2017 13:39:55 03/24/20 17 03/26/2017 CT + NG DNA, PCR, unspe cifie d speci men GC by DNA Negati ve negati ve Not FDA appro bautista for GC/Ch lamyd ia in femal e urine speci mens. Test valid ated by CT for detec ting GC/Ch lamyd ia from this sourc e. Not Available [facility] [address] [facility], [place], [address] 03/26/2017 13:39:55 04/03/20 17 04/05/2017 surgi lola patho logy study report Surgi lola Patho logy Repor t DIAGN OSIS UTERI NE CERVI X, BIOPS Y AT 3 O'CORBIN CK: SQUAM OUS ECTOC ERVIC AL MUCOS A WITH FOCAL LOW-G RADE SQUAM OUS INTRA EPITH ELIAL NEOPL RADHA (LIANA 1, MILD DYSPL RADHA) . (SEEC OMMEN T) El ectro nical ly Mamta d Out * ADAM GRACE MD Comme nt Patie nt's previ ous Pap test ([id number] from 03/22) was inter prete d as Highg rade RHEA, with posit matthias HPV DNA testi ng. Prese nt biops y shows only Low grade .Doherty sform ation zone was not repre sente d. [address] Clini lola Diagn osis and Histo ry Cervi covag inal cytol ogy: HGSIL or carci noma ICD Code( s) R87.6 13 High grade intre pith lesio n cyto smr crvx (HGSI L) Tissu e(s) Submi tted A: Cervi x, biops y @ 3 O'CORBIN CK Gross Descr iptio n Conta iner is label ed with the patie nt's name, John Yessi. Speci men type indic ated on requi sitio n as cervi x 3 o'corbin ck. The speci men is recei bautista in forma kirit and consi sts of one piece of soft paez tissu e measu ring 0.4 x 0.3 x 0.2cm which is then submi tted in toto in one casse tte label ed 1A. [place] Testi ng perfo rmed at [facility] , [address] [place] [address] CLIA [id number] CL-PO L-[id number] 7. Not Available [facility] [address] [place], [address] 04/05/2017 11:51:19 04/17/20 17 04/17/2017 US, trans vagin al RAD [address] [facility] [address], [place], [address], 04/24/2017 16:24:55 05/14/20 17 05/12/2017 MAMMO , anjele vernon, digit al, ros mcnulyt, w/ CAD No observ ation record ed. [place] [address] [facility] [address], [place], [address], 05/21/2017 07:11:01 Result Notes None recorded. 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 Procedures Surgical History Date Name Laterality Status Provider Name and Address Organization Details Recorded Time 7 Colposcopy Procedure Note completed YANE DAVIS DO [address], [place], [address], [facility] 04/03/2017 16:04:58 7 [id number] completed Roxana Enmanuel [facility] 04/03/2017 15:16:28 7 [id number] completed ROYA LUZ MD [address], [place], [address], [facility] 03/22/2017 14:18:51 7 [id number] completed ROYA LUZ MD [address], [place], [address], [facility] 03/22/2017 14:18:46 7 Date of Last Pap Smear completed Roxana Singer [facility] 04/03/2017 08:46:01 6 Colposcopy Procedure Note completed AILYN GONZÁLES DO [address], [place], [address], [facility] 04/11/2016 17:19:22 6 S4K-OSC completed ROYA LUZ MD [address], [place], [address], [facility] 03/21/2016 20:19:33 6 Q5O-PNH completed ROYA LUZ MD [address], [place], [address], [facility] 03/21/2016 20:19:26 6 [id number] completed ROYA LUZ MD [address], [place], [address], [facility] 03/21/2016 20:19:20 6 Colposcopy Procedure Note completed AILYN GONZÁLES DO [address], [place], [address], [facility] 09/21/2015 16:49:18 6 Colposcopy completed Bernarda Langley [facility] 09/21/2015 14:15:43 5 X5J-YTB completed PRISCILLA JACKSON DO [address], [place], [address], [facility] 01/18/2015 08:24:59 5 [id number]-PXLTD completed PRISCILLA JACKSON DO [facility], [address] [place] [address], [place], [address], [facility] 01/18/2015 08:24:59 5 X4Q-YXI completed PRISCILLA JACKSON DO [address], [address] [place] [address], [place], [address], [facility] 01/18/2015 08:24:59 5 T4O-NYB completed PRISCILLA JACKSON DO 175 [facility], [address] [place] [address], [place], [address], [facility] 01/18/2015 08:24:59 5 [id number] completed PRISCILLA JACKSON DO 175 [facility], [address] [place] [address], [place], [address], [facility] 01/18/2015 08:24:59 5 [id number]-[id number] completed PRISCILLA JACKSON DO 175 [facility], [address] [place] [address], [place], [address], [facility] 01/18/2015 08:24:59 Imaging Results None recorded. Procedure Notes None recorded. Medical Equipment None Reported. Allergies Allergen ID Allergen Name Allergen Category Reaction Reaction Severity Criticality Documentation Date Start Date Code Code System Note Provider Name and Address Organization Details Recorded Time 483476 Product containin g penicilli n (product) medicatio n anaphylax is Not available Not available 11/10/20142012 23556 8001 SNOMED REACT ION: YESSIPH JORGEI S; Not Available [facility] 5 18:51:29 Medications Name Sig Start Date Stop Date Status Note LastModified by Organization Details LastModified Time fluvirin 1467-8774 .5 ml nicholas active Not Available Not Available N ot Available azithromyci n 250 mg tabs active Not Available Not Available Not Available cleocin 100 mg supp active Not Available Not Available Not Available Cleocin 100 mg vaginal suppository Insert 1 supposito ry every day by vaginal route at bedtime for 3 days. 03/21 completed Not Available Not Available Not Available tobramycin 0.3 % eye drops 03/21 completed Not Available Not Available Not Available Vitamin D3 03/22 completed Not Available Not Available Not Available Vitamin 03/22 completed Not Available Not Available Not Available Vitals Date Recorded Body mass index (BMI) Body height Body weight Systolic blood pressure Diastolic blood pressure Provider Name and Address Organization Details Last Updated DateTime 09/21/2015 20.6 kg/m2 154.94 cm 11487.56 833 g 98 mm[Hg] 56 mm[Hg] Bernarda Langley [facility] 6 14:10:16 Date Recorded Body height Body weight Body mass index (BMI) Systolic blood pressure Diastolic blood pressure Provider Name and Address Organization Details Last Updated DateTime 03/21/2016 154.94 cm 93720.75 g 21 kg/m2 116 mm[Hg] 70 mm[Hg] Roxana Singer [facility] 6 13:15:55 Date Recorded Body height Body mass index (BMI) Body weight Systolic blood pressure Diastolic blood pressure Provider Name and Address Organization Details Last Updated DateTime 03/22/2017 154.94 cm 21.2 kg/m2 45445.35 g 100 mm[Hg] 62 mm[Hg] Beba Che [facility] 7 13:58:07 Date Recorded Body height Body mass index (BMI) Body weight Systolic blood pressure Diastolic blood pressure Provider Name and Address Organization Details Last Updated DateTime 04/03/2017 154.94 cm 21.4 kg/m2 08286.94 g 108 mm[Hg] 60 mm[Hg] Roxana Singer [facility] 7 15:15:19 Date Recorded Body height Body weight Body mass index (BMI) Systolic blood pressure Diastolic blood pressure Provider Name and Address Organization Details Last Updated DateTime 04/11/2016 154.94 cm 99531.57 g 20.6 kg/m2 102 mm[Hg] 60 mm[Hg] Marcy Jauregui [facility] 6 14:16:13 Social History Question Answer Notes LastModified by OrganizDevHD ion Details LastModified Time Tobacco Smoking Status Never Smoker Roxana Singer [facility] 01/18/2015 08:11:08 Does Your Partner Physically Hurt You Or Threaten To Hurt You? No [email or web address] Information not available 03/22/2017 Has Your Partner Forced You To Have Sex Or Perform Sex Acts When You Did Not Want To? No [email or web address] Information not available 03/22/2017 Does Your Partner Insult, Scream At Or Talk Down To You? No [email or web address] Information not available 03/22/2017 Does Your Partner Control You Or Any Part Of Your Life? No [email or web address] Information not available 03/22/2017 Are You Afraid Of Your Partner? No [email or web address] Information not available 03/22/2017 Drug Use? No Information no t available 01/18/2015 Do You Feel Safe At Home? Yes Information not available 01/18/2015 What Was The Date Of Your Most Recent Tobacco Screening? 04/03/2017 Information not available 01/01/2019 Do You Use Protection During Sex? No Information not available 09/21/2015 How Much Tobacco Do You Smoke? No Information not available 09/21/2015 Sex: Unknown Functional Status Question Answer Note LastModified by Organizat ion Details LastModified Time What is your level of alcohol consumption? Occasional [email or web address] Information not available 03/22/2017 What is your exercise level? Occasional [email or web address] Information not available 03/22/2017 Mental Status None recorded. Family History Relationship Description Onset Age of this Age Resolved Age Notes LastModified by Organization Details LastModified Time Mother Carcinoma of breast 55 [email or web address] Not available 2015 13:16:34 Mother Carcinoma in situ of ovary 40 [email or web address] Not available 2015 13:16:42 Medical History Condition Response Other N Kidney Stones N Colon cancer N Benign breast disease N Depression N Headaches/Migraines N Anxiety Disorder N Arthritis N HSV N Infertility N Acid Reflux (GERD) N Cancer N Stroke N Fibromyalgia N Heart Problems N Kidney or Bladder Problems N Eating Disorder N Bladder disease N History of MRSA N Abnormal Uterine Bleeding N BrCa positive N Asthma N Hepatitis N Thrombophilias N *No Diseases or Conditions N Breast Cancer N Blood clots N Lung Disease N Defects or Inherited Disease N Anesthesia Complications N Neurological Disorder N Have you ever been on isolation N Abnormal pap Y Interstitial Cystitis N Endometriosis N Spina Bifida N HIV N Sexual Dysfunction N Autoimmune disorder N Thyroid Problems N GI Problems N Anemia Y Multiple Sclerosis N Psychiatric Illness N Diabetes N Ovarian Cancer N Blood Transfusions N Hyperlipidemia N Abuse/Domestic Violence N Diverticulitis N Bladder Cancer N Hypertension N Osteoporosis N Gynecological History Statement/Question Response Current Control Method None Date of Last Mammogram Date of LMP 03/14/2017 Sexually Active? Y Colposcopy 09/21/2015 Date of Last Pap Smear 03/22/2017 Current Control Method None Last HPV Result Positive Obstetrics History GPAL:G 0 P 0 0 0 0 Past Encounters Encounter ID Performer Location Encounter Start Date Encounter Closed Date Diagnosis/Indication Diagnosis SNOMED-CT Code Diagnosis ICD10 Code Diagnosis Note [id number] [facility] [address] [place] [address] 11/01/2012 00:00:00 [id number] [facility] [address] [place] [address] 12/09/2012 00:00:00 [id number] [facility] [address] [place] [address] 01/07/2013 00:00:00 [id number] [facility] [address] [place] [address] 06/24/2013 00:00:00 [id number] [facility] [address] [place] [address] 12/09/2013 00:00:00 [id number] [facility] [address] [place] [address] 01/06/2014 00:00:00 [id number] [facility] [address] [place] [address] 01/13/2014 00:00:00 [id number] [facility] [address] [place] [address] 07/28/2014 00:00:00 [id number] PRISCILLASoha JACKSON, DO [facility] [address] [place] [address] 01/18/2015 07:53:12 01/19/2015 11:27:50 Gynecologic examination 41360204 Normal annual exam. No issues. PAP done today. SBE reviewed. SEE BELOW. Venereal d isease screening [id number] AFFIRM sent and STD Bloodwork Slip given and GC/CH Cx on PAP: treat any positive findings. Family his tory of malignant neoplasm of breast in first degree relative [id number] Maternal Hx of Breast and Ovarian CA. Pt will call Breast Surgeon for Clinical Exam and will start MGM yearly. Pt was tested and was found to be BRCA Negative. Cervical intraepithelial neoplasia [id number] Hx of LIANA I on Colpo (01/2014). 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 PAP done today - if abnormal will need repeat Colpo. Importance of follow-up stressed to patient. Increasing anti-oxida nts in diet and maintenanc e of lifestyle that will help boost immune system function to promote fighting HPV's effects on the cervix discussed. Vaginitis and vulvovaginitis [id number] Has occasional odor - AFFIRM sent - treat any positive findings. [id number] AILYN GONZÁLES, DO [facility] [address] [place] [address] 08/17/2015 14:50:53 08/18/2015 12:35:12 Cervicovaginal cytology: Low grade squamous intraepithelial lesion 082847351 R87.612 Hx of LIANA I on Colpo (01/2014). PAP 07/2014 LGSIL, last PAP again showed LGSIL (01/2015). Patient advised at that time to have repeat colposcopy but did not scheduled, importance of follow-up strongly stressed to patient at visit today. Will await results of pap, if still abnormal will need colposcopy . If wnl, plan to repeat in 6 months with annual. Increasing anti-oxida nts in diet and maintenanc e of lifestyle that will help boost immune system function to promote fighting HPV's effects on the cervix discussed. [id number] AILYN GONZÁLES DO [facility] [address] [place] [address] 09/21/2015 13:59:09 09/22/2015 11:42:21 Atypical squamous cells of undetermined significance on cervical Papanicolaou smear 837680001 R87.610 Colposcopy performed today, await pathology for biopsy x 1 and ECC. Patient aware if LIANA 2 or greater would advise LWEET, if LIANA 1 or less continue close observatio n with serial paps Q 6 months until 3 wnl (next with annual exam in 6 months). [id number] ROYA LUZ MD [facility] [address] [place] [address] 03/21/2016 13:04:17 03/22/2016 14:52:17 Gynecologic examination 84112465 Z01.419 Screening mammography 24 126505 Z12.31 Primary infertility 2971 29010 N97.9 [id number] AILYN GONZÁLES DO [facility] [address] [place] [address] 04/11/2016 13:48:13 04/12/2016 10:37:08 Follow-up visit [id number] Z08 HPV - Linette n papillomavirus test positive 536380575 R87.619 Abnormal c ervical Papanicolaou smear 923026606 R87.619 Patient here for colposcopy today, most recent pap showed LGSIL with a few cells suggestive of HGSIL. Patient has history of LIANA 1 since 2013 (Hx of LIANA I on Colpo (01/2014). PAP 07/2014 LGSIL, 01/2015 LGSIL. Patient advised at that time to have repeat colposcopy but did not schedule, pap in August 2015 showed ASCUS HPV + with LIANA 1 again noted with biopsy. Colposcopy performed today, essentiall y normal findings other than small focus of AWE noted at 10 oclock. Biopsy and ECC obtained, await results. Patient aware if LIANA 2 or greater would advise LISAT, if LIANA 1 or less continue close observatio n with serial paps Q 6 months until 3 wnl. [id number] ROYA LUZ MD [facility] [place] [address] 03/22/2017 13:49:19 03/27/2017 08:29:04 Gynecologic examination 60865870 Z01.419 Screening mammography 24 849383 Z12.31 Venereal d isease screening 066933918 Z11.3 [id number] YANE DAVIS DO [facility] [address] [place] [address] 04/03/2017 15:06:10 04/04/2017 08:17:51 Cervicovaginal cytology: High grade squamous intraepithelial lesion or carcinoma 441495204 R87.613 Colpo performed today due to HGSIL on 03/22/17 pap. No complicati ons. Biopsy taken from 3 o'clock position. ECC not performed as patient could not urine for test. Does not think she is and willing to proceed with colpo regardless . Consent signed. R/b/a reviewed. Colposcopi c impression LIANA 1. Will follow up biopsy. HPV - Linette n papillomavirus test positive 441390249 R87.619 Health Concerns Section Related Observation LastModified by Organization Detai ls LastModified Time None Recorded Concern Status LastModified by Organization Details LastModified Time None Recorded Advance Directives Directive None Recorded Payers Insurance Date Sequence Insurance Name Policy Number Policy Kelley Covered Member ID Kelley Member ID Guarantor Name 04/16/[address] [place] [address] ([facility]) [id number] Yessi Valadez [id number] Yessi Lopez Notes Date Note Type Note Provider Name and Address Organization Details Recorded Time 09/21/2015 text/html [facility] Abnormal Pap SmearReported bypatient.Associate d Symptoms:no vaginal/vulvar pain; no vulvar lesions/growths; no vaginal discharge; no postcoital bleeding; no dyspareuniaNotes:Hx of LIANA I on Colpo (01/2014). PAP 07/2014 LGSIL, last PAP again showed LGSIL (01/2015). Patient advised at that time to have repeat colposcopy but did not schedule, pap in August 2015 showed ASCUS HPV +. Patient here today for colposcopy. Recently treated for + BV, finished all medication as directed, no complaints today. AILYN GONZÁLES DO [address] [facility], [address] [place] [address], [phone], [facility] 09/21/2015 16:50:28 03/21/2016 text/html [facility] Annual GYNReported bypatient.History:n o gynecologic complaints; actively trying to conceive Menstrual cycle:Normal menses Urinary symptoms:No hematuria; No incontinence Vulva:No genital lesion Vagina:Normal vaginal discharge Breast:No breast pain; No breast lump; No nipple discharge Current Contraception: control not practiced Sexual complaints:No sexual complaints; No pain during intercourse; Normal libido Menopausal symptoms:No menopausal symptoms; Normal vaginal lubrication Psychological symptoms:No depression; No anxiety; No PMDD Preventive measures:Encourage self breast examination; Encourage regular exercise; Followed with yearly pap smears Attempting for 5 months, doing home ovulation kits ROYA LUZ MD [address], [address], [facility] 03/21/2016 20:23:52 03/22/2017 text/html [facility] Annual GYNReported bypatient.History:n o change in interval history; actively trying to conceive; + Home Ovul kits until last 3 months Menstrual cycle:Normal menses Urinary symptoms:No hematuria; No incontinence Vulva:No genital lesion Vagina:Normal vaginal discharge Breast:No breast pain; No breast lump; No nipple discharge Current Contraception: control not practiced; Requests testing for sexually transmitted infections Sexual activity:No sexual complaints; No pain during intercourse; Normal libido Psychological symptoms:No depression; No anxiety; No PMDD Preventive measures:Encourage self breast examination; Encourage regular exercise; Encourage no tobacco use; Encourage regular mammograms starting age 40; Followed with Q3 year pap smear and high risk HPV typing ROYA LUZ MD [address], [address], [facility] 03/22/2017 14:54:52 04/03/2017 text/html Had HGSIL Pap on 03/22. Presents for colpo. Consent reviewed. Patient understands the r/b/a. YANE DAVIS, [address] [place] [address], [address] Floor, [place], [address], [place] [facility] 04/03/2017 16:06:28 OBGyn Episode No OBEpisode recorded.
[2024-11-05 12:27] LABS: Appearance Urine Clear; Color Urine Yellow; Glucose Urine UA Negative (Negative); Leukocyte Esterase Urine Negative (Negative); Nitrite Urine Negative (Negative); PH 6.5 (5.0-9.0); Urine Blood Negative (Negative); Urine Ketones Negative (Negative); Urine Protein Negative (Neg-Trace)
[2024-11-05 12:38] LABS: Erythrocyte Sedimentation Rate 32 MM/HR (0-20)
[2024-11-05 13:06] LABS: Ferritin 41 ng/mL (10-250)
[2024-11-05 13:06] LABS: Creatinine Urine 66.29 mg/dL; Protein/Creatinine Ratio, Ur 0.12 (<0.2); Total Protein Urine Random 8 mg/dL (<12)
[2024-11-05 13:12] LABS: Bacteria Urine 1+ (None Seen); RBC Urine 0-2 /HPF (0-2); WBC Urine 0-5 /HPF (0-5)
[2024-11-06 12:44] LABS: Complement C3 106 mg/dL (83-193)
[2024-11-06 18:49] LABS: Anti DNA DS Antibody 2 IU/mL
== END 2024-11-05 11:16 | disposition home or self-care (01) ==
LOC: HO.LAB 11:15
PROVIDERS: Internal Medicine Medical Oncology; PCP Internal Medicine; Visit Provider Student in an Organized Health Care Education/Training Program
DX: M35.1 Other overlap syndromes (principal); D64.9 Anemia, unspecified
CPT/HCPCS: 36415; 80053; 81001; 82570; 82728; 84156; 85025; 85652; 86140; 86160; 86225

== ENCOUNTER 2024-11-12 08:10 | Outpatient (AMB) | payer OTHER, SELFPAY ==
--- OUTSIDE RECORDS SUMMARY | 2024-11-12 08:19 | XMS_ITS | Data Portability ---
Author Organization [place] - [facility], [facility] Address [id number] [place] [address] Care Team Providers Care Spreader Name Role Phone [facility] Primary Care Samuel herron Assessment Encounter Date [...] Infertility: Normal FSH last year Referral to [facility] (41 yo) On folic acid RTC annual/prn vferlan Not available 03/22/2017 14:22:06 Plan of Treatment Reminders Order Date Submit Date Provider Last Modified By Organization Details Last Modified Time Details Appointments None recorded. Lab surgical pathology study 2016 SHANELLE [facility], [address] [place], [address] 7 11:51:19 urinalysis, dipstick 2016 017 SHANELLE In-Office Order, Internal Use Only DO Not Attach Compendium DO Not Attach Compendium, Do Not Delete/merge, [id number] 7 14:26:10 pap, IG + CT/NG + HR HPV + reflex HPV (16+18) 2016 017 [facility], [address] [place] [address], [id number] 7 11:31:28 CT + NG DNA, PCR, unspecified specimen 2016 [facility], [address] [place] [address], [id number] 7 11:31:28 hepatitis C Ab, serum 2016 [facility], [address] [place] [address], [address] 7 13:39:53 HBsAg (hepatitis B surface Ag), confirmatio n, serum 2016 [facility], [address] [place] [address], [address] 7 13:39:52 RPR (rapid plasma reagin), serum 2016 017 [facility], [address] [place] [address], [address] 7 13:39:54 HIV 1+2 AB + HIV 1 p24 Ag, qualitative immunoassay , serum 2016 [facility], [address] [place] [address], [id number] 7 13:39:54 test, urine 2015 016 In-Office Order, Internal Use Only DO Not Attach Compendium DO Not Attach Compendium, Do Not Delete/merge, [id number] 6 04:21:41 surgical pathology study 2015 016 [facility], [address] [place] [address], [address] 6 04:21:53 surgical pathology study 2015 016 [facility], [address] [place] [address], [facility] 6 04:21:43 FSH (follicle-s timulating hormone), serum - Day #3 2015 016 [facility], [address] [place] [address], [facility] 6 04:18:24 TSH, serum or plasma 2015 016 [facility], [address] [place] [address], [facility] 6 04:18:41 prolactin, serum 2015 016 [facility], [address] [place] [address], [facility] 6 04:18:22 pap, IG + HPV 2015 016 [facility], [address] [place] [address], [facility] 6 04:18:34 urinalysis, dipstick 2015 016 In-Office Order, Internal Use Only DO Not Attach Compendium DO Not Attach Compendium, Do Not Delete/merge, [id number] 6 04:18:34 surgical pathology study [address] [facility], [address] [place] [address], [facility] 6 16:50:16 test, urine 2015 016 [facility] In-Office Order, Internal Use Only DO Not Attach Compendium DO Not Attach Compendium, Do Not Delete/merge, [id number] 6 16:50:16 surgical pathology study 2015 016 [facility], [address] [place] [address], [facility] 6 16:07:22 Referral None recorded. Procedures None recorded. Surgeries None recorded. Imaging MAMMO, screening, digital, bilateral, w/ CAD 2016 017 [facility], [address], [address], [place], [address], 7 10:33:21 MAMMO, screening, digital, bilateral, w/ CAD 2015 016 [facility], [address], [address], [place], [address], 6 04:18:34 Medication Orders None recorded. Patient TargetsNo targets recorded. Patient Instructions Encounter Date Encounter Id Patient Instructions Last Modified By Organization Details Last Modified Time 04/11/2016 [id number] abnormal Pap test: care instructions [email or web address] Not available 04/12/2016 08:03:20 03/22/2017 [id number] tips to help you stay healthy [email or web address] Not available 03/22/2017 14:00:47 Reason for Referral None Reported. Results Created Date Observation Date Name Description Value Unit Range Abnormal Flag Note LastModifiedBy Organization Detail LastModifiedTime 03/22/20 17 03/22/2017 urina lysis , dipst ick Interpretati on negati ve Not Available In-Office Order Internal Use Only DO Not Attach Compendium DO Not Attach Compendium, Do Not Delete/merge, [id number] 03/22/2017 13:55:09 04/11/20 16 04/11/2016 pregn anna test, urine Result negati ve Not Available In-Office Order Internal Use Only DO Not Attach Compendium DO Not Attach Compendium, Do Not Delete/merge, [id number] 04/11/2016 14:22:45 03/21/20 16 03/21/2016 urina lysis , dipst ick Interpretati on negati ve Not Available In-Office Order Internal Use Only DO Not Attach Compendium DO Not Attach Compendium, Do Not Delete/merge, [id number] 03/21/2016 13:07:49 09/21/19 16 09/21/2015 pregn anna test, urine Result negati ve Not Available In-Office Order Internal Use Only DO Not Attach Compendium DO Not Attach Compendium, Do Not Delete/merge, [id number] 09/21/2015 14:07:58 09/21/19 16 09/23/2015 surgi lola [...] with the prece ding Pap test ([id number] 6from ). [address]45 x 2 Clini lola Diagn osis and [...] Testi ng perfo rmed at [facility] , [address] [place] [address] CLIA [id number] CL-PO L-048 7. Not Available [facility] [address] [place], [address] 09/23/2015 16:07:22 03/21/20 16 03/21/2016 pap, IG + HPV HPV genotype 16, 18/45 TEST CANCEL ED Genot ype not indic ated per ASCCP Guide lines Not Available [facility] [address] [place], [address] 03/23/2016 08:03:38 03/21/20 16 03/22/2016 pap, IG [...] Squ[place]. [id number] . Codi amos Mamta d Out: MD [...] [facility] , [address] [place] [address] CLIA [id number] CL-PO L-048 7. Not Available [facility] [address] [place], [address] 03/23/2016 08:03:38 03/21/20 16 03/22/2016 pap, IG [...] types from this sourc e. Not Available [facility] [address] [place], [address] 03/23/2016 08:03:38 04/11/20 16 04/12/2016 surgi lola [...] sente d in the biops ies. [facility]ola follo wup [place] indic ated. [address] x 2 Clini lola Diagn osis and [...] [facility] , [address] [place] [address] CLIA [id number] CL-PO L-048 7. Not Available [facility] [address] [place] [address], [address] 04/12/2016 12:45:21 04/15/20 16 04/17/2016 TSH, serum or plasm a TSH, highly sensitive 1.64 mIU/L 0.35-4 .94 Not Available [facility] [address] [place] [address], [address] 04/17/2016 12:08:27 04/15/20 16 04/17/2016 FSH (foll [...] ausal Femal es: 26.7- 133.4 Not Available [facility] [address] [place] [address], [address] 04/17/2016 12:08:27 04/15/20 16 04/17/2016 prola ctin, serum prolactin 9.4 NG/mL 5.2-26 .5 Not Available [facility] [address] [place] [address], [address] 04/17/2016 12:08:28 03/22/20 17 03/22/2017 pap, IG + CT/NG + HR HPV + refle x HPV (16+1 8) HPV genotype 16, 18/45 TEST CANCEL ED Genot ype not indic ated per ASCCP Guide lines Not Available [facility] [address] [place] [address], [address] 03/26/2017 11:31:28 03/22/20 17 03/23/2017 pap, IG [...] types from this sourc e. Not Available [facility] [address] [place] [address], [address] 03/26/2017 11:31:28 03/22/20 17 03/26/2017 pap, IG [...] SQUAM OUS INTRA EPITH ELIAL LESIO N [id number] . Elect amrita amos Mamta d Out: MD RUMA FERNANDES [facility] ON, CT( CP) CLINI LOLA INFOR [...] Testi ng [facility] , [address] [place] [address] CLIA [id number] CL-PO L-048 7. Not Available [facility] [address] [place] [address], [facility] 03/26/2017 11:31:28 03/22/20 17 03/24/2017 CT + NG DNA, PCR, unspe cifie d speci men source Infor matio n not given Not Available [facility] [address] [place], [address] 03/26/2017 11:31:28 03/22/20 17 03/24/2017 CT + NG DNA, PCR, unspe cifie d speci men chlamydia by DNA Negati ve negati ve Not Available [facility] [address] [place], [address] 03/26/2017 11:31:28 03/22/20 17 03/24/2017 CT + NG DNA, PCR, unspe cifie d speci men GC by DNA Negati ve negati ve Not FDA appro bautista for GC/Ch lamyd ia in femal e urine speci mens. Test valid ated by [facility] for detec ting GC/Ch lamyd ia from this [facility] e. Not Available [facility] [address] [place] [address], [address] 03/26/2017 11:31:28 03/24/2003/26/2017 HBsAg (hepa titis B surfa ce Ag), confi rmati on, serum hepatitis B surface Ag screen Nonrea ctive nonrea ctive Not Available [address], [address] 03/26/2017 13:39:52 03/24/20 17 03/26/2017 hepat itis C Ab, serum hepatitis C antibody 0.17 S/co_ ratio 0.00-0 .79 Nonre activ e Not Available [address], [address] 03/26/2017 13:39:53 03/24/2003/26/2017 HIV 1+2 AB + HIV 1 p24 Ag, quali tativ e immun oassa y, serum HIV 1/2 Ag/Ab cmia Nonrea ctive nonrea ctive Resul ts show no evide nce of infec tion by HIV 1/2. If clini ger indic ated, repea t CMIA or test by nucle ic acid ampli ficat ion. Not Available [address], [address] 03/26/2017 13:39:53 03/24/2003/26/2017 RPR (rapi d plasm a reagi n), serum syphilis jazmyn <0.2 ai <0.9 Negat matthias Not Available [facility] [address] [place] [address], 03/26/2017 13:39:54 03/24/2003/26/2017 CT + NG DNA, PCR, unspe cifie d speci men source UR Not Available [address], [address] 03/26/2017 13:39:55 03/24/2003/26/2017 CT + NG DNA, PCR, unspe cifie d speci men chlamydia by DNA Negati ve negati ve Not Available [facility] [address] [place] [address], [address] 03/26/2017 13:39:55 03/24/20 17 03/26/2017 CT + NG DNA, PCR, unspe cifie d speci men GC by DNA Negati ve negati ve Not FDA appro bautista for GC/Ch lamyd ia in femal e urine speci mens. Test valid ated by CT for detec ting GC/Ch lamyd ia from this sourc e. Not Available [facility] [address] [facility], [place], [address] 03/26/2017 13:39:55 04/03/20 17 04/05/2017 surgi lola [...] ation zone [place]. [address] Clini lola Diagn osis and Histo ry Cervi covag inal cytol ogy: HGSIL or carci noma ICD Code( s) R87.6 13 High grade intre pith lesio n cyto smr crvx (HGSI L) Tissu e(s) Submi tted A: Cervi x, biops y @ 3 O'CORIBN CK Gross Descr iptio n Conta iner [...] 1A. DC Testi ng perfo rmed at [facility] h [facility] , [address] [place] [address] CLIA [id number] CL-PO L-048 7. Not Available [facility] [address] [place], [address] 04/05/2017 11:51:19 04/17/20 17 04/17/2017 US, trans vagin al RAD [address] [facility] [address], [place], [address], 04/24/2017 16:24:55 05/14/20 17 05/12/2017 MAMMO , anjele vernon, digit al, ros mcnulty, w/ CAD No observ ation record ed. [place] [id number] [facility] [address], [place], [address], 05/21/2017 07:11:01 Result Notes None recorded. Problems Name Problem SNOMED Code Status Onset Date Resolution Date Notes Provider Name and Address Organization Details Recorded Time Atypical squamous cells of undetermine d significanc e on cervical Papanicolao u smear 491921458 Active AILYN GONZÁLES DO 175 [facility], [address] [place] [address], [address], [facility] 6 16:50:16 Cervical intraepithe lial neoplasia 896450972 Completed 08/13/2015 Jeannie Delacruz null, [facility] 6 10:43:03 Vaginitis and vulvovagini tis Completed 08/13/2015 Jeannie Delacruz null, [facility] 6 10:43:03 Cervicovagi nal cytology: Low grade squamous intraepithe lial lesion 794019974 Active AILYN GONZÁLES, [address] [facility], [address] [place] [address], [address] [place] [address] 6 15:23:44 Problem Notes None recorded. Procedures Surgical History Date Name Laterality Status Provider Name and Address Organization Details Recorded Time 7 Colposcopy Procedure Note completed YANE DAVIS DO [address], [place], [address], [facility] 04/03/2017 16:04:58 7 X2H-JFQ completed Roxana Enmanuel [facility] 04/03/2017 15:16:28 7 E5T-PQDJS completed ROYA LUZ MD [address], [place], [address], [facility] 03/22/2017 14:18:51 7 T4R-RTB completed ROYA LUZ MD [address], [place], [address], [facility] 03/22/2017 14:18:46 7 Date of Last Pap Smear completed Roxana Singer [facility] 04/03/2017 08:46:01 6 Colposcopy Procedure Note completed AILYN GONZÁLES DO [address], [place], [address], [facility] 04/11/2016 17:19:22 6 D8S-SZN completed ROYA LUZ MD [address], [place], [address], [facility] 03/21/2016 20:19:33 6 T5Y-ABE completed ROYA LUZ MD [address], [place], [address], [facility] 03/21/2016 20:19:26 6 M4S-WBGLXBJ completed ROYA LUZ MD [address], [place], [address], [facility] 03/21/2016 20:19:20 6 Colposcopy Procedure Note completed AILYN GONZÁLES DO [address], [place], [address], [facility] 09/21/2015 16:49:18 6 Colposcopy completed Bernarda Langley [facility] 09/21/2015 14:15:43 5 S9L-QNQ completed PRISCILLA JACKSON DO [address], [place], [address], [facility] 01/18/2015 08:24:59 5 W8U-OZMEQ completed PRISCILLA JACKSON DO [facility], [address] [place] [address], [place], [address], [facility] 01/18/2015 08:24:59 5 Q6N-UKK completed PRISCILLA JACKSON DO [address], [address] [place] [address], [place], [address], [facility] 01/18/2015 08:24:59 5 A0L-KYU completed PRISCILLA JACKSON DO 175 [facility], [address] [place] [address], [place], [address], [facility] 01/18/2015 08:24:59 5 B3O-FGWCTWQ completed PRISCILLA JACKSON DO [address] [facility], [address] [place] [address], [place], [address], [facility] 01/18/2015 08:24:59 5 G9C-DIQDQR completed PRISCILLA JACKSON DO [address] [facility], [address] [place] [address], [place], [address], [facility] 01/18/2015 08:24:59 Imaging Results None recorded. Procedure Notes None recorded. Medical Equipment None Reported. Allergies Allergen ID Allergen Name Allergen Category Reaction Reaction Severity Criticality Documentation Date Start Date Code Code System Note Provider Name and Address Organization Details Recorded Time 063399 Product containin g penicilli n (product) medicatio n anaphylax is Not available Not available 11/10/20142012 98778 8001 SNOMED REACT ION: YESSIPH JORGEI S; Not Available [facility] 5 18:51:29 Medications Name Sig Start Date Stop Date Status Note LastModified by Organization Details LastModified Time cleocin 100 mg supp active Not Available Not Available Not Available fluvirin 5937-3315 .5 ml nicholas active Not Available Not [...] Updated DateTime 09/21/2015 20.6 kg/m2 154.94 cm 80611.56 833 g 98 mm[Hg] 56 mm[Hg] Bernarda Langley [facility] 6 14:10:16 Date Recorded Body height Body weight Body mass index (BMI) Systolic blood pressure Diastolic blood pressure Provider Name and Address Organization Details Last Updated DateTime 03/21/2016 154.94 cm 61845.75 g 21 kg/m2 116 mm[Hg] 70 mm[Hg] Roxana Singer [facility] 6 13:15:55 Date Recorded Body height Body mass index (BMI) Body weight Systolic blood pressure Diastolic blood pressure Provider Name and Address Organization Details Last Updated DateTime 03/22/2017 154.94 cm 21.2 kg/m2 05979.35 g 100 mm[Hg] 62 mm[Hg] Beba Che [facility] 7 13:58:07 Date Recorded Body height Body mass index (BMI) Body weight Systolic blood pressure Diastolic blood pressure Provider Name and Address Organization Details Last Updated DateTime 04/03/2017 154.94 cm 21.4 kg/m2 63817.94 g 108 mm[Hg] 60 mm[Hg] Roxana Singer [facility] 7 15:15:19 Date Recorded Body height Body weight Body mass index (BMI) Systolic blood pressure Diastolic blood pressure Provider Name and Address Organization Details Last Updated DateTime 04/11/2016 154.94 cm 30575.57 g 20.6 kg/m2 102 mm[Hg] 60 mm[Hg] Marcy Jauregui [facility] 6 14:16:13 Social History Question Answer Notes LastModified by OrganizBondsy ion Details LastModified Time Tobacco Smoking Status Never Smoker Roxana Singer [facility] 01/18/2015 08:11:08 Does Your Partner Physically Hurt You Or Threaten To Hurt You? No [email or web address] Information not available 03/22/2017 Has Your Partner Forced You To Have Sex Or Perform Sex Acts When You Did Not Want To? No [email or web address] Information not available 03/22/2017 Does Your Partner Insult, Scream At Or Talk Down To You? No [email or web address] Information not available 03/22/2017 Does Your Partner Control You Or Any Part Of Your Life? No [email or web address] Information not available 03/22/2017 Are You Afraid Of Your Partner? No [email or web address] Information not available 03/22/2017 Drug Use? No [...] is your level of alcohol consumption? Occasional [email or web address] Information not available 03/22/2017 What is your exercise level? Occasional [email or web address] Information not available 03/22/2017 Mental Status None recorded. Family History Relationship Description Onset Age of this Age Resolved Age Notes LastModified by Organization Details LastModified Time Mother Carcinoma of breast 55 cbinette Not available 2015 13:16:34 Mother Carcinoma in situ of ovary 40 cbinette Not available 2015 13:16:42 Medical History Condition Response Other N Kidney Stones N *No Diseases or Conditions N Blood clots N Breast Cancer N Benign breast disease N Colon cancer N Lung Disease N Depression N Defects or Inherited Disease N Anesthesia Complications N Neurological Disorder N Headaches/Migraines N Have you ever been on isolation N Anxiety Disorder N HSV N Arthritis N Infertility N Interstitial Cystitis N Abnormal pap Y Acid Reflux (GERD) N Cancer N Stroke N Endometriosis N Fibromyalgia N Spina Bifida N HIV N Heart Problems N Sexual Dysfunction N Autoimmune disorder N Kidney or Bladder Problems N Thyroid Problems N GI Problems N Eating Disorder N Anemia Y Multiple Sclerosis N Psychiatric Illness N Ovarian Cancer N Diabetes N Blood Transfusions N Bladder disease N History of MRSA N Abnormal Uterine Bleeding N Hyperlipidemia N BrCa positive N Diverticulitis N Abuse/Domestic Violence N Asthma N Bladder Cancer N Hepatitis N Hypertension N Osteoporosis N Thrombophilias N Gynecological History Statement/Question Response Current Control [...] SNOMED-CT Code Diagnosis ICD10 Code Diagnosis Note [id number] [facility] [address] [place] [address] 11/01/2012 00:00:00 [id number] [facility] [address] [place] [address] 12/09/2012 00:00:00 [id number] [facility] [address] [place] [address] 01/07/2013 00:00:00 [id number] [facility] [address] [place] [address] 06/24/2013 00:00:00 [id number] [facility] [address] [place] [address] 12/09/2013 00:00:00 [id number] [facility] [address] [facility] [address] 01/06/2014 00:00:00 [id number] [facility] [address] [facility] [place] [address] 01/13/2014 00:00:00 [id number] [facility] [address] [facility] [place] [address] 07/28/2014 00:00:00 [id number] PRISCILLASoha JACKSON, DO [facility] [address] [place] [address] 01/18/2015 07:53:12 01/19/2015 11:27:50 Gynecologic examination 76716466 Normal annual exam. No issues. PAP done today. SBE reviewed. SEE BELOW. Venereal d isease screening 011341264 AFFIRM sent and STD Bloodwork Slip given and GC/CH Cx on PAP: treat any positive findings. Family his tory of malignant neoplasm of breast in first degree relative [id number] Maternal Hx of Breast and Ovarian CA. Pt will call Breast Surgeon for Clinical Exam and will start MGM yearly. Pt was tested and was found to be BRCA Negative. Cervical intraepithelial neoplasia 700221835 Hx of LIANA I on Colpo (01/2014). 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 PAP done today - if abnormal will need repeat Colpo. Importance of follow-up stressed to patient. Increasing anti-oxida nts in diet and maintenanc e of lifestyle that will help boost immune system function to promote fighting HPV's effects on the cervix discussed. Vaginitis and vulvovaginitis 709503688 Has occasional odor - AFFIRM sent - treat any positive findings. [id number] AILYN GONZÁLES, DO [facility] [address] [place] [address] 08/17/2015 14:50:53 08/18/2015 12:35:12 Cervicovaginal cytology: Low grade squamous intraepithelial lesion 926393713 R87.612 Hx of LIANA I on Colpo [...] fighting HPV's effects on the cervix discussed. [id number] AILYN GONZÁLES DO [facility] [address] [place] [address] 09/21/2015 13:59:09 09/22/2015 11:42:21 Atypical squamous cells of undetermined significance on cervical Papanicolaou smear 232086100 R87.610 Colposcopy performed today, await pathology for biopsy x 1 and ECC. Patient aware if LIANA 2 or greater would advise LWEET, if LIANA 1 or less continue close observatio n with serial paps Q 6 months until 3 wnl (next with annual exam in 6 months). [id number] ROYA LUZ MD [facility] [address] [place] [address] 03/21/2016 13:04:17 03/22/2016 14:52:17 Gynecologic examination 50907177 Z01.419 Screening mammography 24 110463 Z12.31 Primary infertility 2971 38731 N97.9 [id number] AILYN GONZÁLES DO [facility] [address] [place] [address] 04/11/2016 13:48:13 04/12/2016 10:37:08 Follow-up visit [id number] Z08 HPV - Linette n papillomavirus test positive 888738155 R87.619 Abnormal c ervical Papanicolaou smear 328825556 R87.619 Patient here for colposcopy today, most [...] paps Q 6 months until 3 wnl. [id number] ROYA LUZ MD G[address] [place] [address] 03/22/2017 13:49:19 03/27/2017 08:29:04 Gynecologic examination 08526470 Z01.419 Screening mammography 24 116345 Z12.31 Venereal d isease screening 060308857 Z11.3 [id number] YANE DAVIS DO [facility] [address] [place] [address] 04/03/2017 15:06:10 04/04/2017 08:17:51 Cervicovaginal cytology: High grade squamous intraepithelial lesion or carcinoma 073763421 R87.613 Colpo performed today due to HGSIL on 03/22/17 pap. No complicati ons. Biopsy taken from 3 o'clock position. ECC not performed as patient could not urine for test. Does not think she is and willing to proceed with colpo regardless . Consent signed. R/b/a reviewed. Colposcopi c impression LIANA 1. Will follow up biopsy. HPV - Linette n papillomavirus test positive 855145255 R87.619 Health Concerns Section Related Observation LastModified by Organization Detai ls LastModified Time None Recorded Concern Status LastModified by Organization Details LastModified Time None Recorded Advance Directives Directive None Recorded Payers Insurance Date Sequence Insurance Name Policy Number Policy Kelley Covered Member ID Kelley Member ID Guarantor Name 04/16/[address] [place] [address] ([employer]) [id number] Yessi Valadez [id number] Yessi Lopez Notes Date Note Type Note Provider Name and Address Organization Details Recorded Time 09/21/2015 text/html [facility] Abnormal Pap SmearReported bypatient.Associate d Symptoms:no vaginal/vulvar [...] no complaints today. AILYN GONZÁLES DO 175 [facility], [address] [place] [address], [address], [facility] 09/21/2015 16:50:28 03/21/2016 text/html [facility] Annual GYNReported bypatient.History:n o gynecologic complaints; actively [...] home ovulation kits ROYA LUZ MD [address], [id number], [facility] 03/21/2016 20:23:52 03/22/2017 text/html [facility] Annual GYNReported bypatient.History:n o change in interval [...] pap smear and high risk HPV typing ORYA LUZ MD [address], [id number], [facility] 03/22/2017 14:54:52 04/03/2017 text/html Had HGSIL Pap on 03/22. Presents for colpo. Consent reviewed. Patient understands the r/b/a. YANE DAVIS, [address] [place] [address], [address] Floor, [place], [address], [place] [facility] 04/03/2017 16:06:28 OBGyn Episode No OBEpisode recorded.
--- NOTE | 2024-11-12 08:23 | MHC.OFFVIS ---
Vital Signs 11/12/24 08:40 Height 5 ft 1 in Weight 110 lb 0.171 oz BMI 20.8 BP 122/80 Blood Pressure Location Lt brachial Position Sitting Pulse 89 Pulse Source Pulse Oximeter Pulse Oximetry (%) 96 Oxygen Delivery Method Room Air Intake Visit Reasons: Sjogren's Intake Note: Patient presents for Sjogren's follow up. Allergies Penicillins Allergy (Intermediate, Verified 11/12/24 08:26) Swelling Medication List - Last Reconciled 11/12/24 by Kendy Pelayo MD betamethasone dipropionate 0.05% 0.05 appl topical DAILY PRN cholecalciferol (vitamin D3) 50 mcg PO DAILY corticotropin (Acthar Selfject) 80 units subcut Q72H corticotropin (Acthar) 80 units IM Q72H cyanocobalamin (vitamin B-12) 1,000 mcg sublingual DAILY cyclosporine 0.09% (Cequa) 1 drp ophthalmic (eye) BID cyclosporine modified 50 mg PO BID doxycycline hyclate 100 mg PO DAILY famotidine 40 mg PO BID fluticasone propionate 50 mcg/actuation (Flonase Allergy Relief) 1 spray intranasal BID folic acid 3 mg (3 x 1 mg) PO DAILY 90 days hydroxychloroquine 200 mg PO DAILY levocetirizine (Xyzal) 5 mg PO BID methotrexate sodium 17.5 mg PO QWEEK montelukast (Singulair) 10 mg PO BEDTIME omega-3 fatty acids 1,000 mg PO DAILY perfluorohexyloctane (PF) 100% 1 drp ophthalmic (eye) QID valacyclovir (Valtrex) 1,000 mg PO BID 7 days HPI Comments Details: Patient is a 49-year-old female with allergies, ocular cicatricial pemphigoid, 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 Jeffery. At that time she was following up for her mixed connective tissue disease on methotrexate, cyclosporine and hydroxychloroquine. She was evaluated by her supervisor industrial garment in October and was told she continues to have inflammation and as a result was started on Acthar Gel Since then she followed with ophthalmology 07/2024. She is on Mtx, cyclosporine, and acthar 3 times a week. The same level of inflammation was noted and she was sent to an appointment specialist to see if there is an allergy component She followed up with the Spray Dyer who gave her some medication and instructions to remove certain household allergens Still complaining of dry eyes No joint pain or rash Rheumatologic History: MCTD Diagnosed 2020: 3 years of dry eyes, Raynaud's symptoms, leukopenia, anemia, dry mouth. 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 Hydroxychloroquine started in the fall of 2020. Hydroxychloroquine stopped in the fall; restarted spring 2022 due to leukopenia Initial history by Dr. German: The patient presents for evaluation of dry eyes, dry mouth, positive YESSI, and positive anti REVENUE AUDIT CLERK. She says she is on hydroxychloroquine 200 mg daily from mixed connective tissue disease. She has had dry eye problem for about 3 or 4 years. She has tried some Xiidra eyedrops but that caused burning so she does uses [id number] lubricants that is helpful. Her dry mouth is not all that bothersome. She has no arthralgias or swollen joints. There is no sun sensitivity but she does have Raynaud's symptoms at times. She does not take any drugs for the Raynaud's symptoms. There is a history of iron deficiency anemia when she was in her 20s but that resolved. However recent blood work has shown mild normochromic normocytic anemia and some leukopenia. She was last seen by Dr. Sandoval at [facility] who had started her on hydroxychloroquine 200 mg daily. After the hydroxychloroquine was started she had a repeat CBC that showed improvement in the white count but it was still on the low side. She says she last had an eye exam in 2019. Serologic workup had been pursued because of the dry eye symptoms. She is also known to have positive Sjogren's antibodies. A month ago she had respiratory symptoms and was diagnosed with COVID. She says she has recovered now. Current Rheumatology Medication(s): Methotrexate 17.5mg weekly PO (from ophthal) Folic acid 1mg daily Hydroxychloroquine 200mg daily [facility] Medical History Iron deficiency anemia Leukopenia MCTD (mixed connective tissue disease) Raynaud phenomenon Sjogren's disease Surgical History Hx of colonoscopy History of esophagogastroduodenoscopy (EGD) Hx of eye surgery Family History Mother Ovarian cancer Breast cancer Lung cancer BRCA gene mutation positive Maternal Grandfather Rheumatoid arthritis Lung fibrosis Father Lung fibrosis Sister Thyroiditis Social History Household Members: Significant Other Housing: House Alcohol intake: current Alcohol intake frequency: a few times a month Alcohol type: beer, wine and hard liquor Patient Tobacco Use Status: Never used Tobacco e-Cigarette/Vaping Use: Never Used service: No 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 Review of Systems Const Details: Review of Systems Constitutional: Denies fever, chills, weight loss ENT: Denies vision changes, eye pain or eye redness, dental caries, dry mouth GI: Denies nausea, vomiting, diarrhea, abdominal pain, change in BM Pulm: Denies SOB, KING, hemoptysis, wheezing Cards: Denies chest pain, palpitations Skin: Denies Raynaud's, rash, nail changes, photosensitivity, VEHICLE CONTROLS ENGINEER: Denies headaches, weakness, paresthesias, recurrent falls MSK: as per HPI All other systems reviewed and are unremarkable except noted above Physical Exam Vital Signs: Last Vital Signs Pulse 89 11/12/24 08:40 BP 122/80 11/12/24 08:40 Pulse Ox 96 11/12/24 08:40 Oxygen Delivery Method Room Air 11/12/24 08:40 BMI result Body Mass Index 20.8 Vital signs reviewed Physical Examination CONSTITUITIONAL Patient alert and cooperative. Well appearing and in no apparent painful distress HEENT Patient kept eyes closed during exam.?No lymphadenopathy. ? CHEST/RESPIRATORY SYSTEM Normal respiratory effort and able to speak in complete sentences. ?Clear to auscultation bilaterally. ?No crackles, rales, rhonchi, wheezes heard. CARDIAC SYSTEM Regular rate and rhythm. ?S1 and S2 heard no murmurs. ?Radial pulses intact bilaterally MSK Hands: ?Able to make a fist. No synovitis noted to the MCPs, PIPs or DIPs. ?No tenderness to palpation of these joints. No deformities noted. ? Wrists: ?Full range of motion at the wrists without pain. ?No tenderness to palpation or synovitis noted to the wrists. Elbows: Full range of motion without pain. No tenderness, weakness, swelling, increased warmth or erythema. Shoulders: Full range of active range of motion without pain. No tenderness, weakness, swelling, increased warmth or erythema. Hips: Full range of motion without pain. Hip bursa: No tenderness to palpation Knees: ?Full range of motion. ?No tenderness, swelling, increased warmth or erythema.?No effusion or crepitations Ankles: Full range of motion. ?No tenderness, swelling, increased warmth or erythema.? Feet: ?Negative squeeze test. ?No tenderness to palpation or swelling of the MTPs. Tender points:?No tenderness to palpation of the bilateral trapezius, supraspinatus, greater trochanters, anterior costochondral junctions, bilateral gluteal areas, bilateral suboccipital muscle insertions SKIN Skin intact without rashes. Results Reviewed Results Reviewed: Laboratory Tests 08/22/23 11/05/24 12:11 11:32 WBC 4.5 L RBC 3.61 L Hgb 11.8 L Hct 35.6 L Plt Count 214 D ESR 74 H 32 H Sodium 143 Potassium 3.6 Chloride 107 Carbon Dioxide 29 BUN 9 Creatinine 0.63 AST 20 ALT 11 Alkaline Phosphatase 53 C-Reactive Protein < 0.10 Urine Tests 11/05/24 11:35 Urine Color Yellow Urine Appearance Clear Urine pH 6.5 Urine Protein Negative Urine Blood Negative Protein/Creatinin Ratio 0.12 Rheumatology Labs 08/22/23 11/05/24 12:11 11:32 SS-A/Ro Antibody >8.0 POS A SS-B/La Antibody >8.0 POS A Anti-ds DNA Titer (Crith) 1:20 H Anti-ds DNA (Crithidia) Positive A Double Strand DNA Ab 2 Complement C3 106 Complement C4 18 Assessment & Plan Assessment & Plan (1) MCTD (mixed connective tissue disease): Comment: Diagnosed 2020: 3 years of dry eyes, Raynaud's symptoms, leukopenia, anemia, dry mouth. 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 Hydroxychloroquine started in the fall of 2020. Hydroxychloroquine stopped in the fall; restarted spring 2022 due to leukopenia Code(s): M35.1 - Other overlap syndromes Category: Medical Plan: #MCTD/Sjogren's overlap Patient is a 49-year-old female with MCTD/Sjogren's overlap here today for follow up. With respect to her MCTD/Sjogren's her disease is in remission. Currently on hydroxychloroquine from Rheumatology however she is also on methotrexate from Ophthalmology for her cicatricial pemphigoid. Main symptom right now is dry eyes for which she has tried several therapies including topical eyedrops, punctate plugs, meibo eyedrops, etc.. Discussed that she will likely need to follow up with Ophthalmology to see what other options she has. No joint pain or active synovitis at this time requiring immunosuppression. Unfortunately the dry eyes associated with autoimmune syndromes do not respond to immunosuppression which I explained to the patient. Plan - Continue hydroxychloroquine 200mg - Continue mthotrextae as per ophthal - RTC 1 year - Labs before visit: CBC, CMP, ESR, CRP, C3, C4, dsDNA, UA, UPC, RF, SPEP (2) Ocular cicatricial pemphigoid: [facility] and cyclosporine started 05/2023 Acthar gel added 10/2023 Code(s): L12.1 - Cicatricial pemphigoid Category: Medical Plan: #Cicatricial pemphigoid Continue follow up with Ophthalmology (3) Encounter for methotrexate monitoring: Code(s): Z51.81 - Encounter for therapeutic drug level monitoring; Z79.631 - custodial (current) use of antimetabolite agent Plan: #Long-term Current Use of Methotrexate Discussed with patient the benefits and risks of methotrexate for managing their rheumatic condition Benefits include reduced pain, reduced mortality, maintenance of remission and reduction of flares Risks include oral ulcers, photosensitivity, hepatotoxicity, hematologic toxicity, pneumonitis, flu-like symptoms (especially day after administration), nodulosis, lymphomas ? Limit alcohol and avoid Bactrim ? Monitoring: ?CBC, BMP, LFTs every 3-4 months and hepatitis serologies as needed (4) Encounter for monitoring of hydroxychloroquine therapy: Code(s): Z51.81 - Encounter for therapeutic drug level monitoring; Z79.899 - Other termite exterminator helper (current) drug therapy Plan: #Long-term Use of Hydroxychloroquine Discussed with patient the risks and benefits of hydroxychloroquine in managing the rheumatic condition Benefits include: - Reduced pain, reduce mortality, maintenance of remission and reduction of flares Risks include: - GI upset, skin hyperpigmentation, retinal toxicity (especially after more than 5 years of use), myopathy Advised yearly ophthalmology visits Plan I spent 30 minutes reviewing the record and labs, taking a history, examining the patient, discussing the treatment plan, ordering diagnostic work up and documenting in the medical record Orders: Orders Complement C3 1 Year M35.1 - Other overlap syndromes Complement C4 1 Year M35.1 - Other overlap syndromes Complete Blood Count Auto Diff 1 Year M35.1 - Other overlap syndromes Comprehensive Met. Panel 1 Year M35.1 - Other overlap syndromes Protein Electrophoresis, Serum 1 Year M35.1 - Other overlap syndromes Protein Creatinine Ratio, Ur 1 Year M35.1 - Other overlap syndromes C Reactive Protein 1 Year M35.1 - Other overlap syndromes Erythrocyte Sedimentation Rate 1 Year M35.1 - Other overlap syndromes Rheumatoid Factor 1 Year M35.1 - Other overlap syndromes UA w Microscopic 1 Year M35.1 - Other overlap syndromes Coding Level of Care Code Est Pt Level 4 (39087) Complex EM visit Add On G2211 Diagnoses MCTD (mixed connective tissue disease) M35.1 Ocular cicatricial pemphigoid L12.1 Encounter for methotrexate monitoring Z51.81; Z79.631 Encounter for monitoring of hydroxychloroquine therapy Z51.81; Z79.899
[2024-11-12 08:40] VITALS: BP 122/80; PULSE 89; O2SAT 96; BMI 20.8
== END 2024-11-12 09:22 | disposition home or self-care (01) ==
LOC: HO.RHE 08:13
PROVIDERS: PCP Physician Assistant; Visit Provider Student in an Organized Health Care Education/Training Program
DX: M35.1 Other overlap syndromes (principal); L12.1 Cicatricial pemphigoid; Z51.81 Encounter for therapeutic drug level monitoring; Z79.631 Long term (current) use of antimetabolite agent; Z79.899 Other long term (current) drug therapy
CPT/HCPCS: 99214

== ENCOUNTER → 2024-11-12 08:10 | Outpatient (BNVA) | payer OTHER, SELFPAY | PROVIDERS: PCP Physician Assistant; Visit Provider Student in an Organized Health Care Education/Training Program ==

== ENCOUNTER 2025-04-20 11:37 | Outpatient (REF) | payer OTHER, SELFPAY ==
[2025-04-20 13:12] LABS: HBS Num1 81.48 mIU/mL (0-7.99); HBc Num1 0.04 S/CO (0.00-0.79); HBsAGNum1 0.36 S/CO (0.00-0.99); Hepatitis B Surface Antigen Negative (Negative); ~HepC Num1 0.08 S/CO (0.00-0.79); ~Hepatitis B Surface Antibody REACTIVE (Nonreactive); ~Hepatitis C Antibody Nonreactive (Nonreactive)
--- OUTSIDE RECORDS SUMMARY | 2025-04-20 14:01 | XMS_ITS ---
Author Name [facility] Organization Unknown History of Medication Use Medication Directions Dispensed Refills Start Date End Date Stat famotidine (PEPCID) 40 MG tablet Take 1 tablet twice daily 10/08/2024 active fluticasone (FloNASE) 50 mcg/spray nasal spray 2 sprays per nostril daily 10/08/2024 active levocetirizine (XYZAL) 5 MG tablet Take 1 tablet 1-2 times a day as needed 10/08/2024 active montelukast (SINGULAIR) 10 MG tablet Take 1 tablet at bedtime 10/08/2024 active folic acid (FOLVITE) 1 MG tablet 10/06/2024 active valACYclovir (VALTREX) 1000 MG tablet 10/01/2024 active Miebo 1.338 GM/ML Solution 09/08/2024 active methoTREXate (RHEUMATREX) 2.5 mg tablet 07/18/2024 active hydroxychloroquine (PLAQUENIL) 200 MG tablet 07/14/2024 active cycloSPORINE MODIFIED (NEORAL) 50 MG capsule Take 50 mg by mouth. 05/21/2024 active ferrous sulfate 325 (65 FE) MG tablet Take 1 tablet (325 mg total) by mouth daily. Take 2 hours before or 4 hours after acid reducers. 10/10/2015 active tobramycin (TOBREX) 0.3 % ophthalmic solution Administer 2 drops to both eyes 4 (four) times a day. 10/04/2015 active Cetirizine HCl (ZyrTEC) 10 MG Cap active Cholecalciferol (D2000 Ultra Strength) 2000 UNITS Cap capsule Take by mouth. act becky corticotropin (Acthar) 80 UNIT/ML injectable gel Inject into the shoulder, thigh, or buttocks. active cyanocobalamin (VITAMIN B-12) 1000 MCG tablet Take by mouth daily. active doxycycline (VIBRAMYCIN) 100 MG capsule active Flaxseed, Linseed, (FLAXSEED OIL PO) by Other (specify) route. active Allergies Allergen Reaction Severity Comment Documented Date Source Statu s PENICILLINS ANAPHYLAXIS 10/04/2015 [facility] Problems Problem Status Onset Date Problem Type Date of Resolution Source Chronic idiopathic urticaria active EncounterDiagnosisAct [facility] Anemia active 2012-12-17 ProblemAct [facility] Human papillomavirus in conditions classified elsewhere and of unspecified site active 2012-11-26 ProblemAct [facility] Non-seasonal allergic rhinitis, unspecified trigger active EncounterDiagnosisAct [facility] Adverse food reaction, initial encounter active EncounterDiagnosisAct [facility] Idiopathic angioedema, initial encounter active EncounterDiagnosisAct [facility] Allergic conjunctivitis, bilateral active EncounterDiagnosisAct [facility] Allergic rhinitis active 2012-11-26 ProblemAct [facility] Asthma active 2012-11-26 ProblemAct [facility] Leukocytopenia active 2012-12-[address] [facility] [place] Encounter for allergy testing active EncounterDiagnosisAct [facility] Attention or concentration deficit active 2012-12-17 ProblemAct [facility] Immunizations Vaccine Date Source Lot Number Status Tdap 06/11/2011 [facility] completed MMR 12/05/2004 [facility] completed PPD Test 10/31/2004 [facility] completed Hepatitis B 05/27/1999 [facility] completed TD Preservative Free 05/27/1999 [facility] comp leted Hepatitis B 12/28/1998 [facility] completed Hepatitis B 07/29/1998 [facility] completed MMR 03/15/1979 [facility] completed OPV 06/23/1978 [facility] completed Encounters Encounter Type Encounter Reason Primary Diagnosis Location Date [facility] Care Team Organization Name Specialty Phone Email Start Date End Da te [place] [facility] 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 NO PCP Primary Care 07/28/2024
--- OUTSIDE RECORDS SUMMARY | 2025-04-20 14:01 | XMS_ITS | Encounter Summary ---
[place] [address] Care Team Providers Care Head Field Hockey Coach Name Role Phone Galilea Yin MD Primary Care Provider [phone] Pcp, No Primary Care Provider Unavailabl e Juan Antonio Burnett MD Unavailable [phone] Encounter Details Date Type Department Care Team (Late st Contact Info) Description 10/07/2015 Scanned Document [address] [id number] Provider, Generic Social History Tobacco Use Types Packs/Day Years Used Date Smoking Tobacco: Never Smokeless Tobacco: Never Alcohol Use Standard Drinks/Week Comments No 0 (1 standard drink = 0.6 oz pur e alcohol) Comments No Sex and Gender Information Value Date Recorded Sex Assigned at Not on file Legal Sex Female 3:45 PM EDT Gender Identity Not on file Sexual Orientation Not on file documented as of this encounter Plan of Treatment Not on file documented as of this encounter Visit Diagnoses Not on filedocumented in this encounter Care Teams Head Field Hockey Coach Relationship Specialty Start Date End Date Galilea Yin MD PCP - General Internal Medicine 09/28/15 08/29/22 Pcp, No [address] [place] [address] PCP - General 08/30/22 Juan Antonio Burnett MD [address] [place] [address] Ophthalmology 07/28/24 documented as of this encounter
--- OUTSIDE RECORDS SUMMARY | 2025-04-20 14:02 | XMS_ITS | Clinical Summary ---
Author Organization [facility] Address [address] [place] [id number] Care Team Providers Care Digital Composer Name Role Phone Pcp, No Primary Care Provider UnavailJuan Antonio Darnell MD Unavailable [phone] Allergies Active Allergy Reactions Criticality Noted Date Comments Penicillins Anaphylaxis High 10/04/2015 Medications tobramycin (TOBREX) 0.3 % ophthalmic solutionIndication s:Bilateral conjunctivitis Administer 2 drops to both eyes 4 (four) times a day. 2 Bottle 0 10/04/19 16 Active Additional Information Patient not taking.Reported on 10/08/2024 ferrous sulfate 325 (65 FE) MG tabletIndications: Iron deficiency anemia Take 1 tablet (325 mg total) by mouth daily. Take 2 hours before or 4 hours after acid reducers. 30 tablet 2 10/10/19 16 Active Additional Information Patient not taking.Reported on 10/08/2024 Cetirizine HCl (ZyrTEC) 10 MG Cap A ctive Cholecalciferol (D2000 Ultra Strength) 2000 UNITS Cap capsule Take by mouth. Active cycloSPORINE MODIFIED (NEORAL) 50 MG capsule Take 50 mg by mouth. 05/21/20 24 Active doxycycline (VIBRAMYCIN) 100 MG capsule Active Flaxseed, Linseed, (FLAXSEED OIL PO) by Other (specify) route. Active folic acid (FOLVITE) 1 MG tablet 10/07/19 25 Active hydroxychloroquine (PLAQUENIL) 200 MG tablet 07/14/19 25 Active methoTREXate (RHEUMATREX) 2.5 mg tablet 07/18/19 25 Active Miebo 1.338 GM/ML Solution 09/09/19 25 Active valACYclovir (VALTREX) 1000 MG tablet 10/02/19 Active cyanocobalamin (VITAMIN B-12) 1000 MCG tablet Take by mouth daily. Active corticotropin (Acthar) 80 UNIT/ML injectable gel Inject into the shoulder, thigh, or buttocks. Active levocetirizine (XYZAL) 5 MG tabletIndications: Chronic idiopathic urticaria,Idiopath ic angioedema, initial encounter,Non-seas onal allergic rhinitis, unspecified trigger,Allergic conjunctivitis, bilateral Take 1 tablet 1-2 times a day as needed 180 tablet 3 10/09/19 25 Active famotidine (PEPCID) 40 MG tabletIndications: Chronic idiopathic urticaria,Idiopath ic angioedema, initial encounter Take 1 tablet twice daily 180 tablet 10/09/19 25 Active montelukast (SINGULAIR) 10 MG tabletIndications: Chronic idiopathic urticaria,Idiopath ic angioedema, initial encounter,Non-seas onal allergic rhinitis, unspecified trigger,Allergic conjunctivitis, bilateral Take 1 tablet at bedtime 90 tablet 3 10/09/19 25 Active fluticasone (FloNASE) 50 mcg/spray nasal sprayIndications:N on-seasonal allergic rhinitis, unspecified trigger 2 sprays per nostril daily 3 each 3 10/09/19 25 Active Active Problems Problem Noted Date Diagnosed Date Anemia 12/17/2012 Attention or concentration deficit 12/17/2012 Leukocytopenia 12/17/2012 Allergic rhinitis 11/26/2012 Asthma 11/26/2012 Human papillomavirus in cond itions classified elsewhere and of unspecified site 11/26/2012 Resolved Problems Problem Noted Date Diagnosed Date Resolved Date Bilateral conjunctivitis 10/04/2015 Immunizations Immunization Administration Dates Next Due Hepatitis B 05/27/1999,12/28/1998,07/29/1998 MMR 12/05/2004,03/15/1979 OPV 06/23/1978 PPD Test 10/31/2004 TD Preservative Free 05/27/1999 Tdap 06/11/2011 Varicella Family History Medical History Relation Name Comments No Known Problems Father No Known Problems Mother Relation Name Status Comments Father Alive Mother Alive Social History Tobacco Use Types Packs/Day Years Used Date Smoking Tobacco: Never Smokeless Tobacco: Never Alcohol Use Standard Drinks/Week Comments No 0 (1 standard drink = 0.6 oz pur e alcohol) Comments No Sex and Gender Information Value Date Recorded Sex Assigned at Not on file Legal Sex Female 3:45 PM EDT Gender Identity Not on file Sexual Orientation Not on file Last Filed Vital Signs Vital Sign Reading Time Taken Comments Blood Pressure 108/70 10/07/2015 12:54 PM EDT Pulse 111 10/07/2015 12:54 PM EDT Temperature 36.9 C (98.4 F) 11/17/2014 11:51 AM EDT Respiratory Rate 12 05/02/2013 6:19 PM EST Oxygen Saturation - - Inhaled Oxygen Concentration - - Weight 49.9 kg (110 lb) 10/08/2024 10:51 AM EDT Height 154.9 cm (5' 1 ) 10/08/2024 10:51 AM EDT Body Mass Index 20.78 10/08/2024 10:51 AM EDT Plan of Treatment Health Maintenance Due Date Last Done Comments Hepatitis C Virus Screening 1977 Pneumococcal Vaccine: Pediat wild (0-5 Years) and At-Risk Patients (6 to 49 Years) (1 of 2 - PCV) 1996 Pap Smear (Ages 21-65) 1998 Mammogram 05/12/2019 05/12/2017 DTaP/Tdap/Td Vaccines (2 - T d or Tdap) 06/11/2021 06/11/2011, 05/27/1999 Colonoscopy 2022 Influenza Vaccine 01/09/2025 02/15/2024, , 05/12/2022, Additional history exists COVID-19 Vaccine (6 - Pfizer risk 2023-) 02/09/2025 02/15/2024, 03/05/2023, 04/07/2021, Additional history exists Hepatitis B Vaccines Completed 05/27/1999, 12/28/1998, 07/29/1998 HIV Screening Completed 12/17/2012 Procedures Procedure Name Priority Date/Time Associated Diagnosis Comments IMAGING BREAST/BX/MAMMO 05/12/2017 HIV 1/2 AG/AB CMIA REFLEX TO CONFIRMATION Routine 12/17/2012 3:27 PM EDT from Last 3 Months or Most Recently Relevant to Health Maintenance Results * IMAGING BREAST/BX/MAMMO (05/12/2017) Anatomical Region Laterality Modality Other Narrative 05/12/2017 Ordered by an unspecified provider. Generic Provider IMG LEGACY PROCEDURES Edited Re sult - Final * HIV 1/2 Ag/Ab CMIA Reflex to Confirmation (12/17/2012 3:27 PM EDT) HIV 1/2 Ag/Ab CMIA NEGATIVE NEGATIVE [facility] CONVERSION Comment: RESULTS SHOW NO EVIDENCE OF INFECTION BY HIV 1/2. IF CLINICALLY INDICATED, REPEAT CMIA OR TEST BY NUCLEIC ACID AMPLIFICATION. 12/17/2012 3:27 PM EDT Fortino Dimas MD LAB BLOOD ORDERABLES Fin al Result ALLSCRIPTS CONVERSION from Last 3 Months or Most Recently Relevant to Health Maintenance Insurance [employer] [place] [employer] [place] Care Teams Digital Composer Relationship Specialty Start Date End Date Pcp, No [address] [place] [address] PCP - General 08/30/22 Juan Antonio Burnett MD [address] [place] [address] Ophthalmology 07/28/24
--- OUTSIDE RECORDS SUMMARY | 2025-04-20 14:02 | XMS_ITS | Clinical Summary ---
Author Organization [facility] Address [address] [facility] [facility] [address] [place] [address] Phone Care Team Providers Care Accountant Tax Name Role Phone Po Escamilla MD Primary Care Provider + Allergies Active Allergy Reactions Criticality Noted Date Comments Penicillin 04/20/2021 Medications cholecalcifero l (VITAMIN D3) 2,000 unit capsule Take by mouth daily. Active hydrOXYchloroQ UINE (PLAQUENIL) 200 mg tablet TAKE 1 TABLET(200 MG) BY MOUTH DAILY 90 tablet 1 2 Active flaxseed oiL Oil by Miscellaneous route. Active valACYclovir (VALTREX) 1000 MG tablet 3 Active methotrexate 2.5 MG Oral tablet TAKE 6 TABLETS BY MOUTH EVERY WEEK 3 Active folic acid (FOLVITE) 1 MG tablet 3 Active doxycycline hyclate (VIBRAMYCIN) 100 MG capsule Activ e cycloSPORINE (RESTASIS) 0.05 % suspension Active cetirizine (ZYRTEC) 10 mg capsule Active cycloSPORINE modified (GENGRAF, NEORAL) 50 MG capsule Take 50 mg by mouth 2 (two) times a day. 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 Major signs and symptoms for this pt currently are mild including sicca and chronic leukopenia. No other signs or symptoms to suggest SLE or scleroderma. She has no muscle weakness suggestive of polymyositis. 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 Major signs and symptoms for this pt currently are mild including sicca and chronic leukopenia. No other signs or symptoms to suggest SLE or scleroderma. She has no muscle weakness suggestive of polymyositis. However, symptoms can occur over a number of years so close monitoring is recommended She is tolerating the Plaquenil which I encouraged her to continue Maintain close f/u with eye doctor' If mouth becomes more dry , Evoxac or Salagen can be prescribed Labs today , UA today Monitoring for Pulm HTN with Echo and ILD with PFTs may be considered at next f/u and on yearly basis F/u for re-evaluation in 2 months Encounters Date Type Department Care Team Description 02/06/2025 8:20 AM EDT Procedure visit [facility] [address] [place] [address] [place] [address] Crystal Dsouza MD Encounter for insertion of intrauterine contraceptive device (Primary Dx) from Last 3 Months Family History Medical History Relation Comments Hyperlipidemia Brother Depression Father Hypertension Father Prostate cancer Father Pulmonary fibrosis Father Breast cancer Mother Hyperlipidemia Mother Osteoporosis Mother Ovarian cancer Mother Josse's thyroiditis Sister Relation Status Comments Brother Alive Father Mother Sister Alive Social History Tobacco Use Types Packs/Day Years Used Date Smoking Tobacco: Never Smokeless Tobacco: Never Tobacco Cessation:Counseling Given: Not Answered Alcohol Use Standard Drinks/Week Comments Yes 1 (1 standard drink = 0.6 oz pur e alcohol) 1-2 weekly Education Answer Date Recorded Are you interested in more education? Not on benson e 10/07/2022 Are you concerned about learning? Not on file 10/07/2022 No 10/07/2022 No 10/07/2022 Digital Access Answer Date Recorded No 11/05/2022 No 11/05/2022 Reliable internet access at home? Not on file 11/05/2022 Device with a working camera? Not on file Comments No Sex and Gender Information Value Date Recorded Sex Assigned at Not on file Legal Sex Female 10:38 AM EDT Gender Identity Not on file Sexual Orientation Not on file Last Filed Vital Signs Vital Sign Reading Time Taken Comments Blood Pressure 120/64 02/06/2025 8:02 AM EDT Pulse 59 10/25/2021 3:30 PM EDT Temperature - - Respiratory Rate 16 10/25/2021 3:30 PM EDT Oxygen Saturation 97% 10/25/2021 3:30 PM EDT Inhaled Oxygen Concentration - - Weight 49 kg (108 lb) 02/06/2025 8:02 AM EDT Height 154.9 cm (5' 1 ) 02/06/2025 8:02 AM EDT Body Mass Index 20.41 02/06/2025 8:02 AM EDT Plan of Treatment Health Maintenance Due Date Last Done Comments CYCLOSPORINE LEVEL 1977 LIPID PANEL 1977 DEPRESSION SCREENING 1989 HEPATITIS C SCREENING 1995 HIV ONE-TIME SCREENING (18-6 5 YEARS) 1995 PNEUMOCOCCAL VACCINES (0-49 years) (1 of 2 - PCV) 1996 MAMMOGRAM 2017 COVID-19 VACCINE (3 - Pfizer risk series) 07/14/2020 06/16/2020, 05/27/2020 Adult Td,Tdap Booster 02/09/2022 02/10/2012 , 06/11/2011 COLOGUARD 2022 COLONOSCOPY 2022 COLORECTAL CANCER SCREENING 2022 FIT TEST 2022 FOBT 2022 SIGMOIDOSCOPY 2022 VIRTUAL COLONOSCOPY 2022 CREATININE LEVEL 05/20/2022 05/20/2021 INFLUENZA VACCINE (#1) 2025 03/26/2018 PAP SMEAR 05/30/2025 05/30/2024, 05/18/2023 IUD 02/06/2033 02/06/2025 SMOKING STATUS SCREENING (On ce After 26 Yrs) Completed 02/06/2025 HEPATITIS A VACCINES Aged Out No long er eligible based on patient's age to complete this topic HIB VACCINES Aged Out No longer eligi ble based on patient's age to complete this topic IPV VACCINES Aged Out No longer eligi ble based on patient's age to complete this topic MENINGOCOCCAL VACCINES (ACWY) Aged Out No longer eligible based on patient's age to complete this topic MENINGOCOCCAL VACCINES (B) Aged Out N o longer eligible based on patient's age to complete this topic Medical Devices Implanted Type Area Bottle Assembler Device Identifier Shelf Expiration Date Model / Serial / Lot Iud Implanted: (Quantity not on file) Intrauterine Device Procedures Procedure Name Priority Date/Time Associated Diagnosis Comments POCT URINE HCG Routine 02/06/2025 8:24 AM EDT Encounter for insertion of intrauterine contraceptive device PAP TEST Routine 05/30/2024 12:00 AM EST COMPREHENSIVE METABOLIC PANEL (CMP) Routine 05/20/2021 8:33 AM EST Sjogren's syndrome with keratoconjunctivitis sicca from Last 3 Months or Most Recently Relevant to Health Maintenance Results * Poct Urine HCG (02/06/2025 8:24 AM EDT) HCG, urine Negative, Internal QCs acceptable Negative [facility] Other 02/06/2025 8:24 AM EDT us Crystal Lai MD LAB POCT ENTER/EDIT ORDERABLES Edited Result - Final [address] [address], [facility] * Pap Test (05/30/2024 12:00 AM EST) Report [address] [address] Customer Service Professional: Vic Shields MD LOW EMISSION AUTOMOBILE DESIGNER Cytology Report FINAL DIAGNOSIS A. PAP SMEAR (THIN PREP) CE: SPECIMEN ADEQUACY: Satisfactory for evaluation; transformation zone present. INTERPRETATION: NEGATIVE FOR INTRAEPITHELIAL LESION OR MALIGNANCY. This specimen was analyzed by the automated ThinPrep Imaging System (Socii.) and manually rescreened by a dolphin researcher and/or pathologist. Electronically Signed Out By: EZEQUIEL Vasquez(ASCP) EZEQUIEL Vargas(ASCP) The Pap test is a screening test primarily for squamous cancers and precursors and has associated false-negative and false-positive results. New technologies such as liquid-based preparations may decrease but will not eliminate all false-negative results. Regular sampling and follow-up of unexplained clinical signs and symptoms are recommended to minimize false negative results. PROCEDURES/ADDENDA HPV Testing (Requested) Ordered Date: 06/02/2024 A. PAP SMEAR (THIN PREP) CE: High-risk HPV Panel w/ extended genotyping POS HPV 16-NEG HPV 18-NEG HPV 45-NEG HPV 33/58-NEG HPV 31-NEG HPV 56/59/66-POS HPV 51-NEG HPV 52-NEG HPV 35/39/68-NEG Performed by real-time polymerase chain reaction (PCR) at [facility], [address] [place] [address] using the FDA-approved BD Onclarity9 HPV Assay with extended genotyping. Uses of the assay in scenarios other than those approved by the FDA should be considered off-label use. The accuracy and precision of this test for all other off-label specimen sources has been verified in the Cytopathology Laboratory of the [facility] and has not been cleared or approved by the U.S. Food and Drug Administration. Clinical correlation is advised. The assay assesses the E6/E7 DNA target and utilizes human beta globin as an internal control. Cytology and HPV testing are screening assays and should not be used as the sole means of detecting cancer. False-positives and false-negatives can occur. CLINICAL HISTORY Date of Last Menstrual Period: 05-07-2024 Infection History: HPV: OTHER HIGH RISK, 2022 Other Clinical Conditions: Diagnostic Pap SPECIMEN SOURCE A: PAP SMEAR (THIN PREP) CE Patient Name: BREONNA FELICIANO : 1975 (Age: 49) Sex: F Institution: [facility] Location: [facility] Date of Collection: 05/30/2024 Date of Reported: 06/10/2024 13:28 Results to: Margarita Duvall [facility] Final Diagnosis A. PAP SMEAR (THIN PREP) CE: SPECIMEN ADEQUACY: Satisfactory for evaluation; transformation zone present. INTERPRETATION: NEGATIVE FOR INTRAEPITHELIAL LESION OR MALIGNANCY. This specimen was analyzed by the automated ThinPrep Imaging System (Socii.) and manually rescreened by a dolphin researcher and/or pathologist. [facility] Results\Inte rpretation A. PAP SMEAR (THIN PREP) CE: High-risk HPV Panel w/ extended genotyping POS HPV 16-NEG HPV 18-NEG HPV 45-NEG HPV 33/58-NEG HPV 31-NEG HPV 56/59/66-POS HPV 51-NEG HPV 52-NEG HPV 35/39/68-NEG Performed by real-time polymerase chain reaction (PCR) at [facility], [address] [place] [address], [place] using the FDA-approved BD Onclarity HPV Assay with extended genotyping. Uses of the assay in scenarios other than those approved by the FDA should be considered off-label use. The accuracy and precision of this test for all other off-label specimen sources has been verified in the Cytopathology Laboratory of the [facility] and has not been cleared or approved by the U.S. Food and Drug Administration. Clinical correlation is advised. The assay assesses the E6/E7 DNA target and utilizes human beta globin as an internal control. Cytology and HPV testing are screening assays and should not be used as the sole means of detecting cancer. False-positives and false-negatives can occur. [facility] Conversion Type (Conversion Source) 05/30/2024 06/02/2024 10:12 AM EST Margarita Wallcae MD CYTOLOGY ORDER ERIKA Edited Result - Final [facility] [address] [place] [address] * (ABNORMAL) Comprehensive metabolic panel (05/20/2021 8:33 AM EST) SODIUM 135 133 - 146 mmol/L [facility] POTASSIUM 3.7 3.3 - 5.1 mmol/L [facility] CHLORIDE 100 96 - 108 mmol/L [facility] CO2 25 21 - 35 mmol/L [facility] BUN 9 6 - 19 mg/dL [facility] CREATININE 0.70 0.5 - 1.5 mg/dL [facility] GLUCOSE 94 70 - 99 mg/dL [facility] ALBUMIN 4.2 3.9 - 4.8 g/dL [facility] TOTAL PROTEIN 10.5(H) 6.5 - 8.0 g/dL [facility] CALCIUM 9.2 8.4 - 10.3 mg/dL [facility] ALKALINE PHOSPHATASE 49 39 - 117 U/L [facility] TOTAL BILIRUBIN 0.4 0.0 - 1.2 mg/dL [facility] AST 28 0 - 37 U/L [facility] ALT 15 0 - 40 U/L [facility] GLOBULIN 6.3(H) 1 - 4.8 g/dL [facility] EGFR 109 >59 mL/min/1.7 3m2 [facility] Comment:Estimated glomerular filtration rate calculated using the CKD-EPI refit equation. ANION GAP 14 10 - 20 mmol/L [facility] Blood 05/20/2021 8:33 AM EST 05/20/2021 8:42 AM EST us Arley Verdugo MD LAB BLOOD BKR ORD ERABLES Final Result [address] [address] from Last 3 Months or Most Recently Relevant to Health Maintenance Insurance [employer] Member Subscriber Plan / Payer (Ef fective 2019-Present) Name:[place] Relation to Subscriber:Self Name:Breonna Feliciano Payer ID:[id number] ([facility]) Type:PPO Address: [place] [id number] [employer] Member Subscriber Plan / Payer (Ef fective 2019-Present) Name:Breonna Feliciano Relation to Subscriber:Self Name:Breonna Feliciano Payer ID:[id number] ([facility]) Type:PPO Address: [address] [employer] Member Subscriber Plan / Payer (Ef fective 2019-Present) Name:Breonna Feliciano Relation to Subscriber:Self Name:Breonna Feliciano Payer ID:[id number] ([facility]) Type:PPO Address: [place] [id number] [employer] Member Subscriber Plan / Payer (Ef fective 2019-Present) Name:Breonna Feliciano Relation to Subscriber:Self Name:Breonna Feliciano Payer ID:[id number] (NA) Type:PPO Address: [place] [id number] [employer] Member Subscriber Plan / Payer (Ef fective 2019-Present) Name:Breonna Feliciano Relation to Subscriber:Self Name:Breonna Feliciano Payer ID:[id number] ([facility]) Type:PPO Address: [address] [employer] Member Subscriber Plan / Payer (Ef fective 2019-Present) Name:Breonna Feliciano Relation to Subscriber:Self Name:Breonna Feliciano Payer ID:[id number] ([facility]) Type:PPO Address: [place] [id number] [employer] Care Teams Accountant Tax Relationship Specialty Start Date End Date Po Escamilla MD PCP - General Internal Medicine 02/04/21 Additional Source Comments The information contained in this document represents components of the legal health record. It is not the complete legal health record.[facility]
--- OUTSIDE RECORDS SUMMARY | 2025-04-20 14:02 | XMS_ITS | Encounter Summary ---
Author Organization [address] [address] Care Team Providers Care Administrative Assistant Coordinator Name Role Phone Galilea Yin MD Primary Care Provider [phone] Pcp, No Primary Care Provider UnavailJuan Antonio Darnell MD Unavailable [phone] Encounter Details Date Type Department Care Team (Late st Contact Info) Description 05/12/2017 Scanned Document [address] [place] [phone] Provider, Generic Social History Tobacco Use Types [...] on file documented as of this encounter Procedures Procedure Name Priority Date/Time Associated Diagnosis Comments IMAGING BREAST/BX/MAMMO 05/12/2017 documented in this encounter Results * IMAGING BREAST/BX/MAMMO (05/12/2017) Anatomical Region Laterality Modality Other Narrative 05/12/2017 Ordered by an unspecified provider. us Generic Provider IMG LEGACY PROCEDURES Edited Re sult - Final documented in this encounter Visit Diagnoses Not on filedocumented in this encounter Care Teams Administrative Assistant Coordinator Relationship Specialty Start Date End Date Galilea Yin MD PCP - General Internal Medicine 09/28/15 08/29/22 Pcp, No [address] [place] [address] PCP - General 08/30/22 Juan Antonio Burnett MD [address] [place] [address] Ophthalmology 07/28/24 documented as of this encounter
--- OUTSIDE RECORDS SUMMARY | 2025-04-20 14:02 | XMS_ITS | Encounter Summary ---
Author Organization [facility] Address [address] [place] [address] Phone Care Team Providers Care Venetian Blind Cleaner And Repairer Name Role Phone Po Escamilla MD Primary Care Provider + Encounter Details Date Type Department Care Team (Late st Contact Info) Description 05/29/2021 Telephone [facility] Rheumatology [address] [place] [address] Arley Verdugo MD [address] [facility] [address] [place] [address] [email or web address] Social History Tobacco Use Types Packs/Day Years Used Date Smoking Tobacco: Never Assessed Comments Unknown Sex and Gender Information Value Date Recorded Sex Assigned at Not on file Legal Sex Female 10:38 AM EDT Gender Identity Not on file Sexual Orientation Not on file documented as of this encounter Plan of Treatment Not on file documented as of this encounter Visit Diagnoses Not on filedocumented in this encounter Care Teams Venetian Blind Cleaner And Repairer Relationship Specialty Start Date End Date Po Escamilla MD PCP - General Internal Medicine 02/04/21 documented as of this encounter Additional Source Comments The information contained in this document represents components of the legal health record. It is not the complete legal health record.[facility]
[2025-04-23 11:48] LABS: TS Negative Control Passed; TS Panel A 0; TS Panel B 0; TS Positive Control Passed; TSpotTB Negative (Negative)
== END 2025-04-20 11:38 | disposition home or self-care (01) ==
LOC: HO.LAB 11:37
PROVIDERS: PCP Internal Medicine; Visit Provider Physician Assistant
DX: Z01.84 Encounter for antibody response examination (principal); Z11.3 Encounter for screening for infections with a predominantly sexual mode of transmission; Z11.1 Encounter for screening for respiratory tuberculosis; M35.01 Sjogren syndrome with keratoconjunctivitis
CPT/HCPCS: 36415; 82784; 86481; 86704; 86706; 86803; 87340

== ENCOUNTER 2025-04-27 11:48 | Outpatient (REF) | payer OTHER, SELFPAY ==
--- NOTE | ~2025-04-27 | MM_ITS ---
EXAMINATION: MM SCREENING DIGITAL BREAST TOMOSYNTHESIS, BILATERAL CLINICAL INFORMATION: Screening. Asymptomatic. COMPARISON: Comparison made to multiple prior, most recent April 21, 2024, and most remote May 12, 2017. TECHNIQUE: Digital breast tomosynthesis is performed in mediolateral oblique and craniocaudal views along with computer-aided detection (CAD). Synthesized 2D images are generated from the tomosynthesis. FINDINGS: BREAST COMPOSITION: The breasts are heterogeneously dense, which may obscure small masses. BILATERAL BREASTS: No significant masses, suspicious calcifications or other abnormalities are seen in either breast. MM/MM tomosynthesis screening BI IMPRESSION: BILATERAL BREASTS: Negative, no mammographic evidence of malignancy. Normal interval follow-up is recommended in 12 months. ASSESSMENT: BI-RADS: Category 1: Negative RECOMMENDATION: Routine annual mammography screening. FOLLOW-UP: 1 year F/U This examination should not preclude the clinical evaluation of a suspicious palpable abnormality. This patient's information was entered into a reminder system with a target due date for their next mammogram. Electronically signed by: Pawel Barrett MD 04/29/2025 04:14 PM ILYA
== END 2025-04-27 11:49 | disposition home or self-care (01) ==
LOC: HO.MAMMO 11:48
PROVIDERS: PCP Internal Medicine; Visit Provider Internal Medicine
DX: Z12.31 Encounter for screening mammogram for malignant neoplasm of breast (principal)
CPT/HCPCS: 77063; 77067

== ENCOUNTER → 2025-04-27 12:03 | Outpatient (BNV) | payer OTHER, SELFPAY | PROVIDERS: PCP Internal Medicine; Visit Provider Radiology Body Imaging | DX: Z12.31 Encounter for screening mammogram for malignant neoplasm of breast (principal) | CPT/HCPCS: 77063; 77067 ==

== ENCOUNTER 2025-05-04 11:39 | Outpatient (REF) | payer OTHER, SELFPAY ==
--- OUTSIDE RECORDS SUMMARY | 2025-05-04 15:30 | XMS_ITS | Encounter Summary ---
[place] [address] Care Team Providers Care Silk Spooler Name Role Phone Galilea Yin MD Primary Care Provider [phone] Pcp, No Primary Care Provider Unavailabl e Juan Antonio Burnett MD Unavailable [phone] Encounter Details Date Type Department Care Team (Late st Contact Info) Description 10/07/2015 Scanned Document [address] [phone] Provider, Generic Social History Tobacco Use Types [...] on filedocumented in this encounter Care Teams Silk Spooler Relationship Specialty Start Date End Date Galilea Yin MD PCP - General Internal Medicine 09/28/15 08/29/22 Pcp, No [address] [place] [address] PCP - General 08/30/22 Juan Antonio Burnett MD [address] [place] [address] Ophthalmology 07/28/24 documented as of this encounter
--- OUTSIDE RECORDS SUMMARY | 2025-05-04 15:30 | XMS_ITS | Clinical Summary ---
Author Organization [facility] Address [address] [place] [address] Care Team Providers Care Job Trainer Name Role Phone Pcp, No Primary Care Provider UnavailJuan Antonio Darnell MD Unavailable [phone] Allergies Active Allergy Reactions Criticality Noted [...] Most Recently Relevant to Health Maintenance [place] [employer] [place] [employer] [place] Care Teams Job Trainer Relationship Specialty Start Date End Date Pcp, No [address] [place] [address] PCP - General 08/30/22 Juan Antonio Burnett MD [address] [place] [address] Ophthalmology 07/28/24
--- OUTSIDE RECORDS SUMMARY | 2025-05-04 15:30 | XMS_ITS | Clinical Summary ---
Author Organization [facility] Address [address] [place] [address] Phone Care Team Providers Care Process Eng Name Role Phone Po Escamilla MD Primary [...] BREONNA , + SSA/SSB Ab, leukopenia and +STRATEGIC ACCOUNT EXECUTIVE Ab consistent with overlap disease/MCTD. Major signs [...] low complements, + SSA/SSB Ab, leukopenia and +STRATEGIC ACCOUNT EXECUTIVE Ab consistent with overlap disease/MCTD. Major signs [...] Procedure visit [facility] [address] [place] [address] [place] [address] Crystal Dsouza MD Encounter for insertion of [...] this topic Medical Devices Implanted Type Area Ram Press Operator Device Identifier Shelf Expiration Date Model / [...] HCG, urine Negative, Internal QCs acceptable Negative [facility] Other 02/06/2025 8:24 AM EDT us Crystal Lai MD LAB POCT ENTER/EDIT ORDERABLES Edited Result - Final [address] [address], [facility] * Pap Test (05/30/2024 12:00 AM EST) Report [address] [address] Personal Computer Network Analyst: Vic Shields MD [facility] Report FINAL DIAGNOSIS A. PAP SMEAR (THIN PREP) CE: SPECIMEN ADEQUACY: Satisfactory for evaluation; transformation zone present. INTERPRETATION: NEGATIVE FOR INTRAEPITHELIAL LESION OR MALIGNANCY. This specimen was analyzed by the automated ThinPrep Imaging System ([employer]ur[employer].) and manually rescreened by a implementation specialist and/or pathologist. Electronically Signed Out By: EZEQUIEL [...] by real-time polymerase chain reaction (PCR) at [facility], [address] [place] [address] using the FDA-approved BD Onclarity9 HPV Assay with extended genotyping. Uses of the assay in scenarios other than those approved by the FDA should be considered off-label use. The accuracy and precision of this test for all other off-label specimen sources has been verified in the Cytopathology Laboratory of the [facility] and has not been cleared or approved [...] : 1975 (Age: 49) Sex: F Institution: [facility] Location: [facility] Date of Collection: 05/30/2024 Date of Reported: 06/10/2024 13:28 Results to: Margarita Duvall [facility] Final Diagnosis A. PAP SMEAR (THIN PREP) CE: SPECIMEN ADEQUACY: Satisfactory for evaluation; transformation zone present. INTERPRETATION: NEGATIVE FOR INTRAEPITHELIAL LESION OR MALIGNANCY. This specimen was analyzed by the automated ThinPrep Imaging System (Spurfly.) and manually rescreened by a implementation specialist and/or pathologist. [facility] Results\Inte rpretation A. PAP SMEAR (THIN PREP) CE: High-risk HPV Panel w/ extended genotyping POS HPV 16-NEG HPV 18-NEG HPV 45-NEG HPV 33/58-NEG HPV 31-NEG HPV 56/59/66-POS HPV 51-NEG HPV 52-NEG HPV 35/39/68-NEG Performed by real-time polymerase chain reaction (PCR) at [facility], [address] [place] [address] using the FDA-approved BD Onclarity HPV Assay with extended genotyping. Uses of the assay in scenarios other than those approved by the FDA should be considered off-label use. The accuracy and precision of this test for all other off-label specimen sources has been verified in the Cytopathology Laboratory of the [facility] and has not been cleared or approved by the U.S. Food and Drug Administration. Clinical correlation is advised. The assay assesses the E6/E7 DNA target and utilizes human beta globin as an internal control. Cytology and HPV testing are screening assays and should not be used as the sole means of detecting cancer. False-positives and false-negatives can occur. [facility] Conversion Type (Conversion Source) 05/30/2024 06/02/2024 10:12 AM EST us Margarita Wallace MD CYTOLOGY ORDER ERIKA Edited Result - Final [address] [address] * (ABNORMAL) Comprehensive metabolic panel (05/20/2021 8:33 AM EST) SODIUM 135 133 - 146 mmol/L [facility] POTASSIUM 3.7 3.3 - 5.1 mmol/L [facility] CHLORIDE 100 96 - 108 mmol/L [facility] CO2 25 21 - 35 mmol/L [facility] BUN 9 6 - 19 mg/dL [facility] CREATININE 0.70 0.5 - 1.5 mg/dL [facility] GLUCOSE 94 70 - 99 mg/dL [facility] ALBUMIN 4.2 3.9 - 4.8 g/dL [facility] TOTAL PROTEIN 10.5(H) 6.5 - 8.0 g/dL [facility] CALCIUM 9.2 8.4 - 10.3 mg/dL [facility] ALKALINE PHOSPHATASE 49 39 - 117 U/L [facility] TOTAL BILIRUBIN 0.4 0.0 - 1.2 mg/dL [facility] AST 28 0 - 37 U/L [facility] ALT 15 0 - 40 U/L [facility] GLOBULIN 6.3(H) 1 - 4.8 g/dL [facility] EGFR 109 >59 mL/min/1.7 3m2 [facility] Comment:Estimated glomerular filtration rate calculated using the CKD-EPI refit equation. ANION GAP 14 10 - 20 mmol/L [facility] Blood 05/20/2021 8:33 AM EST 05/20/2021 8:42 AM EST us Arley Verdugo MD LAB BLOOD BKR ORD ERABLES Final Result [address] [address] from Last 3 Months or Most Recently Relevant to Health Maintenance Insurance [employer] Member Subscriber Plan / Payer (Ef fective 2019-Present) Name:Breonna Feliciano Relation to Subscriber:Self Name:Breonna Felicianoi Payer ID:[id number] ([facility]) Type:PPO Address: [address] [employer] Member Subscriber Plan / Payer (Ef fective 2019-Present) Name:Breonna Feliciano Relation to Subscriber:Self Name:Breonna Feliciano Payer ID:[id number] ([facility]) Type:PPO Address: [address] [employer] Member Subscriber Plan / Payer (Ef fective 2019-Present) Name:Breonna Feliciano Relation to Subscriber:Self Name:Breonna Feliciano Payer ID:[id number] ([facility]) Type:PPO Address: [place] [id number] [employer] Member Subscriber Plan / Payer (Ef fective 2019-Present) Name:Breonna Feliciano Relation to Subscriber:Self Name:Breonna Feliciano Payer ID:[id number] ([facility]) Type:PPO Address: [place] [id number] [employer] Care Teams Process Eng Relationship Specialty Start Date End Date Po Escamilla MD PCP - General Internal Medicine 02/04/21 Additional Source Comments The information contained in this document represents components of the legal health record. It is not the complete legal health record.[facility]
--- OUTSIDE RECORDS SUMMARY | 2025-05-04 15:30 | XMS_ITS | Data Portability ---
Author Organization [place] - [facility], [facility] Address [id number] [place] [address] Care Team Providers Care [employer] Attendant Name Role Phone [facility] Primary Care P gopal Assessment Encounter Date Assessment Date Assessment LastModified [...] Infertility: Normal FSH last year Referral to VÍCTOR (41 yo) On folic acid RTC annual/prn vferlan Not available 03/22/2017 14:22:06 Plan of Treatment Reminders Order Date Submit Date Provider Last Modified By Organization Details Last Modified Time Details Appointments None recorded. Lab surgical pathology study 2016 017 SHANELLE [facility], [address] [place], [address] 7 11:51:19 urinalysis, dipstick 2016 017 [place] In-Office Order, Internal Use Only DO Not Attach Compendium DO Not Attach Compendium, Do Not Delete/merge, [id number] 7 14:26:10 pap, IG + CT/NG + HR HPV + reflex HPV (16+18) 2016 [facility], [address] [place] [address], [id number] 7 11:31:28 CT + NG DNA, PCR, unspecified specimen 2016 [facility], [address] [place] [address], [id number] 7 11:31:28 hepatitis C Ab, serum 2016 [facility], [address] [place] [address], [id number] 7 13:39:53 HBsAg (hepatitis B surface Ag), confirmatio n, serum 2016 [facility], [address] [place] [address], [id number] 7 13:39:52 RPR (rapid plasma reagin), serum 2016 [facility], [address] [place] [address], [id number] 7 13:39:54 HIV 1+2 AB + HIV 1 p24 Ag, qualitative immunoassay , serum 2016 [facility], [address] [place] [address], [address] 7 13:39:54 test, urine 2015 In-Office Order, Internal Use Only DO Not Attach Compendium DO Not Attach Compendium, Do Not Delete/merge, [id number] 6 04:21:41 surgical pathology study 2015 [facility], [address] [place] [address], [id number] 6 04:21:53 surgical pathology study 2015 [facility], [address] [place] [address], [id number] 6 04:21:43 FSH (follicle-s timulating hormone), serum - Day #3 2015 016 [facility], [address] [place] [address], [facility] 6 04:18:24 TSH, serum or plasma 2015 016 [facility], [address] [place] [address], [facility] 6 04:18:41 prolactin, serum 2015 [facility], [address] [place] [address], [facility] 6 04:18:22 pap, IG + HPV 2015 [facility], [address] [place] [address], [facility] 6 04:18:34 urinalysis, dipstick 2015 In-Office Order, Internal Use Only DO Not Attach Compendium DO Not Attach Compendium, Do Not Delete/merge, [id number] 6 04:18:34 surgical pathology study [address] [facility], [address] [place] [address], [id number] 6 16:50:16 test, [facility] Order, Internal Use Only DO Not Attach Compendium DO Not Attach Compendium, Do Not Delete/merge, [id number] 6 16:50:16 surgical pathology study 2015 016 [facility], [address] [place] [address], [facility] 6 16:07:22 Referral None recorded. Procedures None recorded. Surgeries None recorded. Imaging MAMMO, screening, digital, bilateral, w/ CAD 2016 017 [place] [facility] ([facility]), [address], [address], [place], [address], 7 10:33:21 MAMMO, screening, digital, bilateral, w/ CAD 2015 016 [facility], [address], [address], [place], [address], 6 04:18:34 Medication Orders None recorded. Patient TargetsNo targets recorded. Patient Instructions Encounter Date Encounter Id Patient Instructions Last Modified By Organization Details Last Modified Time 04/11/2016 [id number] abnormal Pap test: care instructions [email or web address] Not available 04/12/2016 08:03:20 03/22/2017 [id number] tips to help you stay healthy vferlan Not available 03/22/2017 14:00:47 Reason for Referral None Reported. Results Created Date Observation Date Name Description Value Unit Range Abnormal Flag Note LastModifiedBy Organization Detail LastModifiedTime 03/22/20 17 03/22/2017 urina lysis , dipst ick Interpretati on negati ve Not Available In-Office Order Internal Use Only DO Not Attach Compendium DO Not Attach Compendium, Do Not Delete/merge, [id number] 03/22/2017 13:55:09 04/11/20 16 04/11/2016 pregn anna test, urine Result negati ve Not Available In-Office Order Internal Use Only DO Not Attach Compendium DO Not Attach Compendium, Do Not Delete/merge, [id number] 04/11/2016 14:22:45 03/21/20 16 03/21/2016 urina lysis , dipst ick Interpretati on negati ve Not Available In-Office Order Internal Use Only DO Not Attach Compendium DO Not Attach Compendium, Do Not Delete/merge, [id number] 03/21/2016 13:07:49 09/21/19 16 09/21/2015 pregn anna test, urine Result negati ve Not Available In-Office Order Internal Use Only DO Not Attach Compendium DO Not Attach Compendium, Do Not Delete/merge, [id number] 09/21/2015 14:07:58 09/21/19 16 09/23/2015 surgi lola [...] with the prece ding Pap test ([id number] ). 82295 x 2 Clini lola Diagn osis and Histo ry R87.6 10 ICD Code( s) R87.6 10 Atyp squam cell of undet signf c cyto smr crvx (ASC- US) Tissu e(s) Submi tted A: Endoc ervix , curet tage B: CERVI LOLA BIOPS Y 9:00 Gross Descr iptio n #1 - The conta iner is label ed with the patie nt's name, Breonna Lopez. ECC is noted on the req and [...] [facility] , [address] [place] [address] CLIA [id number] CL-PO L-048 7. Not Available [facility] [address] [place] [address], [id number] 09/23/2015 16:07:22 03/21/20 16 03/21/2016 pap, IG + HPV HPV genotype 16, 18/45 TEST CANCEL ED Genot ype not indic ated per ASCCP Guide lines Not Available [facility] [address] [place] [address], [id number] 03/23/2016 08:03:38 03/21/20 16 03/22/2016 pap, IG [...] Squ[place]. [id number] . Elect amrita amos Mamta d Out: MD CARL FERNANDES [...] [facility] , [address] [place] [address] CLIA [id number] CL-PO L-048 7. Not Available [facility] [address] [place] [address], [id number] 03/23/2016 08:03:38 03/21/20 16 03/22/2016 pap, IG [...] types from this sourc e. Not Available [facility] [address] [place] [address], [address] 03/23/2016 08:03:38 04/11/20 16 04/12/2016 surgi lola [...] sente d in the biops ies. Recom mendc lose clini lola follo wup as indic ated. 79050 x 2 Clini lola Diagn osis and [...] label ed with the patie nt's name, Breonna Lopez. Noted on conta iner, 10 o'corbin [...] ed with the patie nt's name, John Breonna. Noted on conta iner, ECC. The speci [...] [facility] , [address] [place] [address] CLIA [id number] CL-PO L-048 7. Not Available [facility] [address] [place], [address] 04/12/2016 12:45:21 04/15/20 16 04/17/2016 TSH, serum or plasm a TSH, highly sensitive 1.64 mIU/L 0.35-4 .94 Not Available [facility] [address] [place], [address] 04/17/2016 12:08:27 04/15/20 16 04/17/2016 FSH (foll [...] ausal Femal es: 26.7- 133.4 Not Available [facility] [address] [place], [address] 04/17/2016 12:08:27 04/15/20 16 04/17/2016 prola ctin, serum prolactin 9.4 NG/mL 5.2-26 .5 Not Available [facility] [address] [place] [address], [address] 04/17/2016 12:08:28 03/22/20 17 03/22/2017 pap, IG + CT/NG + HR HPV + refle x HPV (16+1 8) HPV genotype 16, 18/45 TEST CANCEL ED Genot ype not indic ated per ASCCP Guide lines Not Available [facility] [address] [place] [address], [address] 03/26/2017 11:31:28 03/22/20 17 03/23/2017 pap, IG [...] types from this sourc e. Not Available [facility] [address] [place] [address], [id number] 03/26/2017 11:31:28 03/22/20 17 03/26/2017 pap, IG [...] SQUAM OUS INTRA EPITH ELIAL LESIO N [id number] . Elect amrita amos Mamta d Out: MD RUMA FERNANDES [facility] ON, CT( CP) CLINI LOLA INFOR MATIO N: LMP: NI Z01.4 19 Speci men sourc e: CERVI X/END OCERV IX Abnor mal Pap Date: NI Autom ated presc reeni ng of all liqui d based speci mens is perfo rmed by the ThinP rep Imagi ng Syste mnaveenes s other de state d. The Pap test is a scree vernon test with an inher ent false negat matthias rate. Testi ng perfo rmed at [facility] , [address] [place] [address] CLIA [id number] CL-PO L-048 7. Not Available [facility] [address] [place] [address], [address] 03/26/2017 11:31:28 03/22/20 17 03/24/2017 CT + NG DNA, PCR, unspe cifie d speci men source Infor matcharlene n not given Not Available [facility] [address] [place] [address], [address] 03/26/2017 11:31:28 03/22/20 17 03/24/2017 CT + NG DNA, PCR, unspe cifie d speci men chlamydia by DNA Negati ve negati ve Not Available [facility] [address] [place] [address], [facility] 03/26/2017 11:31:28 03/22/20 17 03/24/2017 CT + NG DNA, PCR, unspe cifie d speci men GC by DNA Negati ve negati ve Not FDA appro bautista for GC/Ch lamyd ia in femal e urine speci mens. Test valid ated by [facility] for detec ting GC[facility] Not Available [facility] [address] [place] [address], [address] 03/26/2017 11:31:28 03/24/20 17 03/26/2017 HBsAg (hepa titis B surfa ce Ag), confi rmati on, serum hepatitis B surface Ag screen Nonrea ctive nonrea ctive Not Available [facility] [address] [place] [address], [address] 03/26/2017 13:39:52 03/24/20 17 03/26/2017 hepat itis C Ab, serum hepatitis C antibody 0.17 S/co_ ratio 0.00-0 .79 Nonre activ e Not Available [address], [address] 03/26/2017 13:39:53 03/24/20 17 03/26/2017 HIV 1+2 AB + HIV 1 p24 Ag, quali tativ e immun oassa y, serum HIV 1/2 Ag/Ab cmia Nonrea ctive nonrea ctive Resul ts show no evide nce of infec tion by HIV 1/2. If clini ger indic ated, repea t CMIA or test by nucle ic acid ampli ficat ion. Not Available [address], [address] 03/26/2017 13:39:53 03/24/20 17 03/26/2017 RPR (rapi d plasm a reagi n), serum syphilis jazmyn <0.2 ai <0.9 Negat matthias Not Available [facility] [address] [place] [address], [address] 03/26/2017 13:39:54 03/24/2003/26/2017 CT + NG DNA, PCR, unspe cifie d speci men source UR Not Available [facility] [address] [place] [address], [address] 03/26/2017 13:39:55 03/24/20 17 03/26/2017 CT + NG DNA, PCR, unspe cifie d speci men chlamydia by DNA Negati ve negati ve Not Available [facility] [address] [place] [address], [address] 03/26/2017 13:39:55 03/24/20 17 03/26/2017 CT + NG DNA, PCR, unspe cifie d speci men GC by DNA Negati ve negati ve Not FDA appro bautista for GC/Ch lamyd ia in femal e urine speci mens. Test valid ated by CT for detec ting GC/Ch lamyd ia from this sourc e. Not Available [facility] [address] [facility], [place], [address] 03/26/2017 13:39:55 04/03/20 17 04/05/2017 surgi lola [...] ation zone was [place]e d. [id number] Clini lola Diagn osis and Histo ry Cervi covag inal cytol ogy: HGSIL or carci noma ICD Code( s) R87.6 13 High grade intre pith lesio n cyto smr crvx (HGSI L) Tissu e(s) Submi tted A: Cervi x, biops y @ 3 O'CORBIN CK Gross Descr iptio n Conta iner is label ed with the patie nt's name, Breonna Lopez. Speci men type indic ated on requi sitio n as cervi x 3 o'corbin ck. The speci men is recei bautista in forma kirit and consi sts of one piece of soft paez tissu e measu ring 0.4 x 0.3 x 0.2cm which is then submi tted in toto in one casse tte label ed 1A. DC Testi ng perfo rmed at [facility] , [address] [place] [address] CLIA [id number] CL-PO L-048 7. Not Available [facility] [address] [place], [address] 04/05/2017 11:51:19 04/17/20 17 04/17/2017 US, trans vagin al RAD [address] [facility] [address] [place], [address], 04/24/2017 16:24:55 05/14/20 17 05/12/2017 MAMMO , radha junior, digit al, bilat sarahl, w/ CAD No observ ation record ed. [place] [id number] [facility] ([facility]) [address], [address], 05/21/2017 07:11:01 Result Notes None recorded. Problems Name Problem SNOMED Code Status Onset Date Resolution Date Notes Provider Name and Address Organization Details Recorded Time Atypical squamous cells of undetermine d significanc e on cervical Papanicolao u smear 546926267 Active AILYN GONZÁLES DO 175 [facility], [address] [place] [address], [place], [address] , [facility] 6 16:50:16 Cervical intraepithe lial neoplasia 129197361 Completed 08/13/2015 Jeannie Delacruz null, [facility] 6 10:43:03 Vaginitis and vulvovagini tis Completed 08/13/2015 Jeannie Delacruz null, [facility] 6 10:43:03 Cervicovagi nal cytology: Low grade squamous intraepithe lial lesion 478835520 Active AILYN GONZÁLES DO 175 [facility], [address] [facility], [place], [address] , [facility] 6 15:23:44 Problem Notes None recorded. Procedures Surgical History Date Name Laterality Status Provider Name and Address Organization Details Recorded Time 7 Colposcopy Procedure Note completed YANE DAVIS DO [address] [facility], [address] [facility], [place], [address], [facility] 04/03/2017 16:04:58 7 [id number]-[id number] completed Roxana Singer [facility] 04/03/2017 15:16:28 7 [id number]-[id number] completed ROYA LUZ MD [address], [address] [facility], [place], [address], [facility] 03/22/2017 14:18:51 7 [id number]-ROT completed ROYA LUZ MD [address], [address] [place] [address], [place], [address], [facility] 03/22/2017 14:18:46 7 Date of Last Pap Smear completed Roxana Singer [facility] 04/03/2017 08:46:01 6 Colposcopy Procedure Note completed AILYN GONZÁLES DO [address], [address] [place] [address], [place], [address], [facility] 04/11/2016 17:19:22 6 J0H-LSG completed ROYA LUZ MD [address], [address] [place] [address], [place], [address], [facility] 03/21/2016 20:19:33 6 N8A-AME completed ROYA LUZ MD [address], [address] [place] [address], [place], [address], [facility] 03/21/2016 20:19:26 6 [id number] completed ROYA LUZ MD 175 [facility], [address] [place] [address], [address], [facility] 03/21/2016 20:19:20 6 Colposcopy Procedure Note completed AILYN GONZÁLES DO [address] Floor, [place], [address], [facility] 09/21/2015 16:49:18 6 Colposcopy completed Bernarda Langley [facility] 09/21/2015 14:15:43 5 W9S-KCX completed PRISCILLA JACKSON DO [address] Floor, [place], [address], [facility] 01/18/2015 08:24:59 5 J3H-TMPCU completed PRISCILLA JACKSON DO [address], [place], [address], [facility] 01/18/2015 08:24:59 5 I1Y-ORP completed PRISICLLA JACKSON DO [address], [place], [address], [facility] 01/18/2015 08:24:59 5 A8L-YMW completed PRISCILLA JACKSON DO [address], [place], [address], [facility] 01/18/2015 08:24:59 5 [id number]-[id number] completed PRISCILLA JACKSON DO [address], [place], [address], [facility] 01/18/2015 08:24:59 5 [id number] completed PRISCILLA JACKSON DO [address], [place], [address], [facility] 01/18/2015 08:24:59 Imaging Results None recorded. Procedure Notes None recorded. Medical Equipment None Reported. Allergies Allergen ID Allergen Name Allergen Category Reaction Reaction Severity Criticality Documentation Date Start Date Code Code System Note Provider Name and Address Organization Details Recorded Time 633270 Product containin g penicilli n (product) medicatio n anaphylax is Not available Not available 11/10/20142012 17537 8001 SNOMED REACT ION: ANAPH YLAXI S; Not Available [facility] 5 18:51:29 Medications Name Sig Start Date Stop Date Status Note LastModified by Organization Details LastModified Time fluvirin 5256-7049 .5 ml nicholas active Not Available Not [...] index (BMI) Body height Body weight Systolic And Diastolic Provider Name and Address Organization Details Last Updated DateTime 09/21/2015 20.6 kg/m2 154.94 cm 83657.568 33 g 98/56 mm[Hg] Bernarda Langley [facility] 09/21/2015 14:10:16 Date Recorded Body height Body weight Body mass index (BMI) Systolic And Diastolic Provider Name and Address Organization Details Last Updated DateTime 03/21/2016 154.94 cm 91375.75 g 21 kg/m2 116/70 mm[Hg] Roxana Singer [facility] 03/21/2016 13:15:55 Date Recorded Body height Body mass index (BMI) Body weight Systolic And Diastolic Provider Name and Address Organization Details Last Updated DateTime 03/22/2017 154.94 cm 21.2 kg/m2 79309.35 g 100/62 mm[Hg] Beba Bolton [facility] 03/22/2017 13:58:07 Date Recorded Body height Body mass index (BMI) Body weight Systolic And Diastolic Provider Name and Address Organization Details Last Updated DateTime 04/03/2017 154.94 cm 21.4 kg/m2 56912.94 g 108/60 mm[Hg] Roxana Singer [facility] 04/03/2017 15:15:19 Date Recorded Body height Body weight Body mass index (BMI) Systolic And Diastolic Provider Name and Address Organization Details Last Updated DateTime 04/11/2016 154.94 cm 00572.57 g 20.6 kg/m2 102/60 mm[Hg] Marcy Jauregui MD - [facility] 04/11/2016 14:16:13 Social History Question Answer Notes LastModified by [employer] Details LastModified Time Tobacco Smoking Status Never Smoker Roxana Singer [place], [place] - [facility] 01/18/2015 08:11:08 Does Your Partner Physically Hurt You Or Threaten To Hurt You? No [email or web address] Information not available 03/22/2017 Has Your Partner Forced You To Have Sex Or Perform Sex Acts When You Did Not Want To? No [email or web address] Information not available 03/22/2017 Does Your Partner Insult, Scream At Or Talk Down To You? No [email or web address] Information not available 03/22/2017 Does Your Partner Control You Or Any Part Of Your Life? No [email or web address] Information not available 03/22/2017 Are You Afraid Of Your Partner? No [email or web address] Information not available 03/22/2017 Drug Use? No [...] Functional Status Question Answer Note LastModified by [employer] Details LastModified Time What is your level of alcohol consumption? Occasional [email or web address] Information not available 03/22/2017 What is your exercise level? Occasional [email or web address] Information not available 03/22/2017 Mental Status None recorded. Family History Relationship Description Onset Age of this Age Resolved Age Notes LastModified by Organization Details LastModified Time Mother Carcinoma of breast 55 [email or web address] Not available 2015 13:16:34 Mother Carcinoma in situ of ovary 40 cbinette Not available 2015 13:16:42 Medical History Condition Response Other N Kidney Stones N *No Diseases or Conditions N Breast Cancer N Blood clots N Benign breast disease N Colon cancer N Lung Disease N Depression N Defects or Inherited Disease N Anesthesia Complications N Headaches/Migraines N Neurological Disorder N Have you ever been on isolation N Anxiety Disorder N HSV N Arthritis N Infertility N Interstitial Cystitis N Abnormal pap Y Acid Reflux (GERD) N Cancer N Stroke N Endometriosis N Fibromyalgia N Spina Bifida N HIV N Heart Problems N Sexual Dysfunction N Autoimmune disorder N Thyroid Problems N Kidney or Bladder Problems N GI Problems N Eating Disorder N Anemia Y Multiple Sclerosis N Psychiatric Illness N Diabetes N Ovarian Cancer N Blood Transfusions N Bladder disease N History of MRSA N Abnormal Uterine Bleeding N Hyperlipidemia N BrCa positive N Abuse/Domestic Violence N Diverticulitis N Asthma N Bladder Cancer N Hepatitis [...] Diagnosis SNOMED-CT Code Diagnosis ICD10 Code Diagnosis IMO Codes Diagnosis Note [id number] [facility] [address] [place] [address] 11/01/2012 00:00:00 [id number] [facility] [address] [place] [address] 12/09/2012 00:00:00 [id number] [facility] [address] [place] [address] 01/07/2013 00:00:00 [id number] [facility] [address] [place] [address] 06/24/2013 00:00:00 [id number] [facility] [address] [place] [address] 12/09/2013 00:00:00 [id number] [facility] [address] [facility] [address] 01/06/2014 00:00:00 [id number] [facility] [address] [facility] [address] 01/13/2014 00:00:00 [id number] [facility] [address] [facility] [address] 07/28/2014 00:00:00 [id number] PRISCILLA RENETTA, DO G5 [address] [facility] [place] [address] 01/18/2015 07:53:12 01/19/2015 11:27:50 Gynecologic examination 25185206 Normal annual exam. No issues. PAP done today. SBE reviewed. SEE BELOW. Venereal d isease screening [id number] AFFIRM sent and STD Bloodwork Slip given and GC/CH Cx on PAP: treat any positive findings. Family his tory of malignant neoplasm of breast in first degree relative [id number] Maternal Hx of Breast and Ovarian CA. Pt will call Breast Surgeon for Clinical Exam and will start MGM yearly. Pt was tested and was found to be BRCA Negative. Cervical intraepithelial neoplasia 756746371 Hx of LIANA I on Colpo (01/2014). 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 PAP done today - if abnormal will need repeat Colpo. Importance of follow-up stressed to patient. Increasing anti-oxida nts in diet and maintenanc e of lifestyle that will help boost immune system function to promote fighting HPV's effects on the cervix discussed. Vaginitis and vulvovaginitis 555700578 Has occasional odor - AFFIRM sent - treat any positive findings. [id number] AILYN GONZÁLES, DO G5 [address] [facility] [place] [address] 08/17/2015 14:50:53 08/18/2015 12:35:12 Cervicovaginal cytology: Low grade squamous intraepithelial lesion 387051537 R87.612 Hx of LIANA I on Colpo [...] fighting HPV's effects on the cervix discussed. [id number] AILYN GONZÁLES DO G[address] [place] [address] 09/21/2015 13:59:09 09/22/2015 11:42:21 Atypical squamous cells of undetermined significance on cervical Papanicolaou smear 729405907 R87.610 Colposcopy performed today, await pathology for biopsy x 1 and ECC. Patient aware if LIANA 2 or greater would advise LWEET, if LIANA 1 or less continue close observatio n with serial paps Q 6 months until 3 wnl (next with annual exam in 6 months). [id number] ROYA LUZ MD G5 [address] [place] [address] 03/21/2016 13:04:17 03/22/2016 14:52:17 Gynecologic examination 82203967 Z01.419 Screening mammography 24 886806 Z12.31 Primary infertility 2971 99914 N97.9 [id number] AILYN GONZÁLES DO [facility] [address] [place] [address] 04/11/2016 13:48:13 04/12/2016 10:37:08 Follow-up visit [id number] Z08 HPV - Linette n papillomavirus test positive 238777380 R87.619 Abnormal c ervical Papanicolaou smear 024000474 R87.619 Patient here for colposcopy today, most [...] if LIANA 2 or greater would advise SANDIP, if LIANA 1 or less continue close observatio n with serial paps Q 6 months until 3 wnl. [id number] ROYA LUZ MD [facility] [facility] [address] [place] [address] 03/22/2017 13:49:19 03/27/2017 08:29:04 Gynecologic examination [id number] Z01.419 Screening mammography 24 [id number] Z12.31 Venereal d isease screening [id number] Z11.3 [id number] YANE DAVIS , G5 [address] [place] [address] 04/03/2017 15:06:10 04/04/2017 08:17:51 Cervicovaginal cytology: High grade squamous intraepithelial lesion or carcinoma [id number] R87.613 Colpo performed today due to HGSIL on 03/22/17 pap. No complicati ons. Biopsy taken from 3 o'clock position. ECC not performed as patient could not urine for test. Does not think she is and willing to proceed with colpo regardless . Consent signed. R/b/a reviewed. Colposcopi c impression LIANA 1. Will follow up biopsy. HPV - Linette n papillomavirus test positive [id number] R87.619 Health Concerns Section Related Observation LastModified by Organization Detai ls LastModified Time None Recorded Concern Status LastModified by Organization Details LastModified Time None Recorded Advance Directives Directive None Recorded Payers Insurance Date Sequence Insurance Name Policy Number Policy Kelley Covered Member ID Kelley Member ID Guarantor Name 04/16/[address] [place] [address] ([facility]) [id number] Breonna Valadez [id number] Breonna Lopez Notes Date Note Type Note Provider Name and Address Organization Details Recorded Time 6 text/html [facility] Abnormal Pap SmearReported by PatientHPIFor associated symptoms, patient reportsno vaginal/vulvar pain,no vulvar lesions/growths,no vaginal discharge,no postcoital bleeding, andno dyspareunia.Hx of LIANA I on Colpo (01/2014). PAP 07/2014 LGSIL, last PAP again showed LGSIL (01/2015). Patient advised at that time to have repeat colposcopy but did not schedule, pap in August 2015 showed ASCUS HPV +. Patient here today for colposcopy. Recently treated for + BV, finished all medication as directed, no complaints today. AILYN GONZÁLES DO [address] [facility], [address] [facility], [place], [address], [facility] 09/21/2015 16:50:28 6 text/html [facility] Annual GYNReported by PatientHistoryFor history, patient reportsno gynecologic complaintsandactively trying to conceive.Genitourinary symptomsFor menstrual cycle, patient reportsnormal menses. For urinary symptoms, patient reportsno hematuriaandno incontinence. For vulva, patient reportsno genital lesion. For vagina, patient reportsnormal vaginal discharge.Breast symptomsFor breast, patient reportsno breast pain,no breast lump, andno nipple discharge.ContraceptionFor current contraception, patient reportsbirth control not practiced.Endocrine symptomsFor sexual activity, patient reportsno sexual complaints,no pain during intercourse, andnormal libido. For menopausal symptoms, patient reportsno menopausal symptomsandnormal vaginal lubrication.Psychological symptomsFor psychological symptoms, patient reportsno depression,no anxiety, andno pmdd.Preventative measuresFor preventive measures, patient reportsencourage self breast examination,encourage regular exercise, andfollowed with yearly pap smears. Attempting for 5 months, doing home ovulation kits ROYA LUZ MD [address] [facility], [address] [place] [address], [place], [address], [facility] 03/21/2016 20:23:52 7 text/html [facility] Annual GYNReported by PatientHistoryFor history, patient reportsno change in interval historyandactively trying to conceive(+ home ovul kits until last 3 months).Genitourinary symptomsFor menstrual cycle, patient reportsnormal menses. For urinary symptoms, patient reportsno hematuriaandno incontinence. For vulva, patient reportsno genital lesion. For vagina, patient reportsnormal vaginal discharge.Breast symptomsFor breast, patient reportsno breast pain,no breast lump, andno nipple discharge.ContraceptionFor current contraception, patient reportsbirth control not practiced.Endocrine symptomsFor sexual activity, patient reportsno sexual complaints,no pain during intercourse,normal libido, andrequests testing for sexually transmitted infections.Psychological symptomsFor psychological symptoms, patient reportsno depression,no anxiety, andno pmdd.Preventative measuresFor preventive measures, patient reportsencourage self breast examination,encourage regular exercise,encourage no tobacco use,followed with pap smear and high risk hpv typing every 3 years, andencourage regular mammograms starting age 40.ROS as noted in the HPI ROYA LUZ MD [address] [facility], [address] [place], [address], [facility] 03/22/2017 14:54:52 7 text/html Had HGSIL Pap on 03/22. Presents for colpo. Consent reviewed. Patient understands the r/b/a. YANE DAVIS DO [address] [facility], [address] [facility], [place], [address], [facility] 04/03/2017 16:06:28 OBGyn Episode No OBEpisode recorded.
--- OUTSIDE RECORDS SUMMARY | 2025-05-04 15:30 | XMS_ITS | Encounter Summary ---
Author Organization [address] [address] Care Team Providers Care Petal Shaper Hand Name Role Phone Galilea Yin MD Primary Care Provider [phone] Pcp, No Primary Care Provider UnavailJuan Antonio Darnell MD Unavailable [phone] Encounter Details Date Type Department Care Team (Late st Contact Info) Description 05/12/2017 Scanned Document [address] [place] [id number] Provider, Generic Social History Tobacco Use Types [...] on filedocumented in this encounter Care Teams Petal Shaper Hand Relationship Specialty Start Date End Date Galilea Yin MD PCP - General Internal Medicine 09/28/15 08/29/22 Pcp, No [address] [place] [address] PCP - General 08/30/22 Juan Antonio Burnett MD [address] [place] [address] Ophthalmology 07/28/24 documented as of this encounter
--- OUTSIDE RECORDS SUMMARY | 2025-05-04 15:30 | XMS_ITS | Encounter Summary ---
Author Organization [facility] Address [address] [facility] [address] [place] [address] Phone Care Team Providers Care Fishing Worker Name Role Phone Po Escamilla MD Primary Care Provider + Encounter Details Date Type Department Care Team (Late st Contact Info) Description 05/29/2021 Telephone Technical Machine [facility] Rheumatology [address] [place] [address] Arley Verdugo MD [address] [facility] [address] [place] [address] [email or web address] Social History Tobacco Use Types Packs/Day Years [...] on filedocumented in this encounter Care Teams Fishing Worker Relationship Specialty Start Date End Date Po Escamilla MD PCP - General Internal Medicine 02/04/21 documented as of this encounter Additional Source Comments The information contained in this document represents components of the legal health record. It is not the complete legal health record.[facility]
== END 2025-05-04 11:40 | disposition home or self-care (01) ==
LOC: HO.LAB 11:39
PROVIDERS: PCP Internal Medicine; Visit Provider Physician Assistant
DX: L12.1 Cicatricial pemphigoid (principal)
CPT/HCPCS: 82784; 82787